=== PATIENT | female | born 1990 | race Caucasian/White ===

== ENCOUNTER 2024-02-14 11:13 | Outpatient (OUT) | payer BC, SELFPAY ==
[2024-02-14 11:54] LABS: Basophils Percent Auto 0.6 % (0.2-2.0); Eosinophils Absolute Auto 0.1 10^3/uL (0.0-0.7); Eosinophils Percent Auto 1.1 % (0.9-7.0); Hematocrit 43.7 % (36.0-48.0); Immature Granulocytes Abs Auto 0.01 10^3/uL (0.00-0.03); Immature Granulocytes Pct Auto 0.2 % (0.0-0.5); Lymphocytes Absolute Auto 1.8 10^3/uL (1.2-3.8); Mean Corpuscular Hemoglobin 26.4 pg (26.7-34.0); Mean Corpuscular Volume 82.3 fL (81.0-99.0); Mean Platelet Volume 11.6 fL (9.5-13.5); Monocytes Absolute Auto 0.6 10^3/uL (0.3-0.8); Monocytes Percent Auto 9.3 % (1.7-12.0); Neutrophils Absolute Auto 3.8 10^3/uL (1.4-6.5); Neutrophils Percent Auto 59.8 % (43.0-75.0); Platelet Count 259 10^3/uL (150-450); Red Blood Count 5.31 10^6/uL (4.20-5.40); Red Cell Distribution Width 15.6 % (11.0-15.0); White Blood Count 6.4 10^3/uL (4.0-11.0)
[2024-02-14 12:06] LABS: Estimated Average Glucose 103 mg/dL; Glycohemoglobin A1C 5.2 % (4.5-6.2)
[2024-02-14 12:37] LABS: Alanine Aminotransferase 27 U/L (14-59); Albumin Globulin Ratio 0.9; Albumin Level 3.4 g/dL (3.4-5.0); Alkaline Phosphatase 100 U/L (46-116); Anion Gap 14.3; Aspartate Amino Transferase 17 U/L (15-37); BUN Creatinine Ratio 9.2; Bilirubin Total 0.3 mg/dL (0.2-1.0); Calcium 8.8 mg/dL (8.5-10.1); Carbon Dioxide 24.7 mmol/L (21.0-32.0); Chloride 103 mmol/L (98-107); Cholesterol 234 mg/dL (<=200); Estimated GFR (African America >60 (>=60 mL/min/1.73m^2); Estimated GFR (Non-African Ame 53 (>=60 mL/min/1.73m^2); Globulin 3.9 g/dL; Glucose 84 mg/dL (74-106); HDL Cholesterol 39 mg/dL (40-60); Sodium 138 mmol/L (136-145); Thyroid Stimulating Hormone 1.725 uIU/mL (0.358-3.740); Total Protein 7.3 g/dL (6.4-8.2); Triglycerides 212 mg/dL (<=150); VLDL CHOLESTEROL 42.4 mg/dL
[2024-02-14 12:39] LABS: Free T3 2.86 pg/mL (2.18-3.98)
== END 2024-02-14 11:14 | disposition home or self-care (01) ==
PROVIDERS: PCP Family Medicine; Visit Provider Family Medicine
DX: Z00.00 Encounter for general adult medical examination without abnormal findings (principal)
CPT/HCPCS: 36415; 80053; 80061; 83036; 83540; 84436; 84443; 84481; 85025

== ENCOUNTER 2024-05-26 07:55 | Outpatient (OUT) | payer BC, SELFPAY ==
--- NOTE | 2024-05-26 | VEIN_ITS ---
The [address] [address] Patient Name: GEMA MONTILLA MRN: [id number] date: 1990 Sex: F Assigned Patient Location: Current Patient Location: Accession/Order Number: [id number] Exam Date: 05/26/2024 07:56 Report Date: 05/26/2024 10:10 At the request of: LYDIA ESTRELLA Procedure: VC SEGMENTAL PRESSURES EXAM: VC SEGMENTAL PRESSURES HISTORY: R09.89 Signs and symptoms involving circulatory system COMPARISON: None. TECHNIQUE: Resting ABIs and segmental pressures were obtained. FINDINGS: Right resting BRODY 1.14. Left resting BRODY 1.29. Waveforms are multiphasic. No pressure gradients were noted. VEIN/VC SEGMENTAL PRESSURES IMPRESSION: Normal resting ABIs. No pressure gradients. Electronically authenticated by: Kristen SAHU Date: 05/26/2024 10:10
--- OUTSIDE RECORDS SUMMARY | 2024-05-26 08:00 | XMS_ITS | CCD ---
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 Name Role Phone SAMEER, DR FREEMAN Admitting Unavailable HOY, DR FREEMAN Attending Unavailable HOY, DR FREEMAN Primary Care Unavailable HOY, DR FREEMAN Consulting Unavailable JABIER ALSTON Consulting Unavailable HOY, DR FREEMAN Admitting Unavailable HOY, DR FREEMAN Attending Unavailable HOY, DR FREEMAN Primary Care Unavailable HOY, DR FREEMAN Consulting Unavailable HOY, DR FREEMAN Admitting Unavailable HOY, DR FREEMAN Attending Unavailable HOY, DR FREEMAN Primary Care Unavailable HOY, DR FREEMAN Consulting Unavailable WEST, DR VINAY Wise Consulting Unavailable SAMEER, DR FREEMAN Primary Care Unavailable HAY, DR BIRD Admitting Unavailable HAY, DR BIRD Attending Unavailable ZIEBALEKSEY, DR PATTY Vu Consulting Unavailable HAY, DR BIRD Consulting Unavailable SAMEER, DR FREEMAN Primary Care Unavailable HAY, DR BIRD Admitting Unavailable HAY, DR BIRD Attending Unavailable HAY, DR BIRD Consulting Unavailable KIMVINAY Consulting Unavailable HOY, DR FREEMAN Admitting Unavailable HOY, DR FREEMAN Attending Unavailable ABELARDOY, DR FREEMAN Primary Care Unavailable HOPlacido, DR FREEMAN Consulting Unavailable ZIEBALEKSEY, DR PATTY Vu Consulting Unavailable Elin Bryan Unavailable MD Lydia San Primary Care Provider [phone] TETE Bryan Attending Provider [phone] Lydia San Primary Care Unavailable Elin Bryan Admitting Unavailable Elin Bryan Attending Unavailable Rob Coello Admitting Unavailab Rob Broderick Attending Unavailab le Lydia San Primary Care Unavailable Lydia San MD Primary Care Provider [phone] FER ROMAN Attending Unavailable ROMAN, PENOLA P Referring Unavailable FER ROMAN Referring Unavailable FER ROMAN Attending Unavailable FER ROMAN Attending Unavailable FER ROMAN Referring Unavailable SABRINA HEAD Attending Unavailable LYDIA SAN Referring Unavailable Sabrina Head NP Unavailable [phone] Allergies Allergy Classification Reported Allergen(s) Allergy Type Date of Onset Reaction(s) Facility (1 source) HYDROcodone Drug Allergy [facility] Repository (5 sources) buPROPion Drug Allergy 4 Other [facility] Healthcare (5 sources) Escitalopram Drug Allergy 4 Other [facility] (5 sources) Wound Dressing Adhesive Drug Intolerance 3 [facility] Medications Current Medications Medication Drug Class(es) Dates Sig (Normalized) Sig (Original) busPIRone hydrochloride 10 mg oral tablet (4 sources) Start: 03-01-2024 take 1 tablet by mouth in the morning busPIRone (Buspar) 10 MG tablet Take 10 mg by mouth in the morning and 10 mg before bedtime. 03/01/2024 Active DULoxetine 20 mg delayed release oral capsule (3 sources) Serotonin and Norepinephrine Reuptake Inhibitor Start: 05-04-2024 End: 06-03-2024 take 1 capsule by mouth once daily DULoxetine (Cymbalta) [address] capsule Indications: Mild episode of recurrent major depressive disorder (HCC) (CMS/HCC) , MYRANDA (generalized anxiety disorder) (CMS/HCC) Take 1 capsule (20 mg) by mouth Daily Do not crush or chew. 30 capsule 1 05/04/2024 05/10/2024 Discontinued (Side effects) 21 day ethinyl estradiol 0.381391 mg/hr / etonogestrel 0.005 mg/hr vaginal system (5 sources) Progestin, Estrogen Start: 12-17-2023 etonogestrel-ethin yl estradiol (Nuvaring) 0.12-0.015 MG/24HR vaginal ring Indications: Encounter for surveillance of transdermal patch hormonal contraceptive device Insert 1 Ring into the vagina every 28 (twenty-eight) days Insert vaginal ring for 3 weeks, then remove for 1 week. 1 each 12/17/2023 Active mirtazapine 7.5 mg oral tablet (2 sources) Start: 05-10-2024 End: 06-09-2024 take 1 tablet by mouth at bedtime mirtazapine (Remeron) 7.5 MG tablet Indications: Mild episode of recurrent major depressive disorder (HCC) (CMS/HCC) , MYRANDA (generalized anxiety disorder) (CMS/HCC) Take 1 tablet (7.5 mg) by mouth at bedtime 30 tablet 1 05/10/2024 05/18/2024 Discontinued (Side effects) [place] (No Known Home Meds) (1 source) Start: 07-20-2021 [place] (No Known Home Meds) Active July 20, 2021 12:00am predniSONE 10 mg oral tablet (5 sources) take 1 tablet by mouth every twenty-four hours as needed predniSONE (Deltasone) 10 MG tablet Take 10 mg by mouth Daily as needed (During flairs) Active triamcinolone acetonide 1 mg/ml topical cream (5 sources) Corticosteroid Start: 12-17-2023 triamcinolone (Kenalog) 0.1 % cream Indications: Rash Apply topically 2 (two) times a day 30 g 3 12/17/2023 Active Completed/Discontinued Medications Medication Drug Class(es) Dates Sig (Normalized) Sig (Original) [id number] 200 actuat albuterol 0.09 mg/actuat metered dose inhaler (1 source) beta2-Adrenergic Agonist Start: 06-19-2020 take 2 puff(s) by inhalation every four hours as needed Albuterol Sulfate HFA 108 (90 Base) MCG/ACT 2 puffs as needed Inhalation every 4 hrs for 30 days Jun, Not-Taking ferrous sulfate 325 mg oral tablet (1 source) Start: 07-11-2018 End: 07-20-2021 take 325 mg by mouth once daily Ferrous Sulfate Discontinued 325 MG PO Daily July 11, 2018 1:00am July 20, 2021 4:10pm ibuprofen 800 mg oral tablet (1 source) Nonsteroidal Anti-inflammatory Drug Start: 07-11-2018 End: 07-20-2021 take 800 mg by mouth every six hours Ibuprofen Discontinued 800 MG PO Q6H July 11, 2018 1:00am July 20, 2021 4:10pm Vit 17-Qtfn-Jotxx-Dha ( + Dha) 28 mg iron- 975 mcg-200 mg Combo Pack (1 source) Start: 06-18-2018 End: 07-20-2021 Vit 71-Tvfe-Bxabi-Dha ( + Dha) 28 mg iron- 975 mcg-200 mg Combo Pack Discontinued 1 PACKET PO Daily June 18, 2018 1:00am July 20, 2021 4:10pm Problems Active Problems Problem Classification Problem Date Documented Date Episodic/Chronic Abdominal pain (11 sources) Right lower quadrant pain; Translations: [Right upper quadrant pain] Onset: 07-20-2021 Episodic Anxiety disorders (7 sources) Generalized anxiety disorder; Translations: [Generalized anxiety disorder] Onset: 05-04-2024 05-04-2024 Chronic Cancer of kidney and renal pelvis (6 sources) Nephroblastoma of left kidney; Translations: [Malignant neoplasm of left kidney, except renal pelvis] Onset: 05-06-2024 05-06-2024 Chronic Deficiency and other anemia (1 source) Iron deficiency anemia; Translations: [Iron deficiency anemia, unspecified] Episodic Diabetes mellitus without complication (1 source) Hyperglycemia; Translations: [Hyperglycemia, unspecified] Episodic Diseases of mouth; excluding dental (1 source) Sore mouth; Translations: [Other lesions of oral mucosa] Episodic Disorders of lipid metabolism (1 source) Hyperlipidemia; Translations: [Hyperlipidemia, unspecified] Chronic Genitourinary symptoms and ill-defined conditions (5 sources) Hematuria, unspecified; Translations: [Blood in urine] Onset: 12-23-2020 Episodic Mood disorders (7 sources) Recurrent major depressive episodes, mild ; Translations: [Major depressive disorder, recurrent, mild] Onset: 05-04-2024 05-04-2024 Chronic Nausea and vomiting (1 source) Nausea; Translations: [NAUSEA] Onset: 10-31-2021 Episodic Noninfectious gastroenteritis (4 sources) Noninfective gastroenteritis and colitis, unspecified; Translations: [NONINFECTIVE GE AND COLITIS UNS] Onset: 12-08-2021 Episodic Other congenital anomalies (1 source) Congenital malformation syndromes involving limbs; Translations: [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] Chronic Other congenital anomalies (6 sources) Hemihypertrophy of muscle; 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] Onset: 05-06-2024 05-06-2024 Chronic Other connective tissue disease (4 sources) Behcet's syndrome; 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] Onset: 05-06-2024 5 Episodic Other diseases of kidney and ureters (1 source) Renal mass; Translations: [Other specified disorders of kidney and ureter] Chronic Other endocrine disorders (1 source) Hyperprolactinemia; Translations: [Hyperprolactinemia] Chronic Other eye disorders (1 source) Pain in eye; Translations: [Ocular pain, unspecified eye] Episodic Other female genital disorders (1 source) Noninflammatory disorder of the vagina; Translations: [Other specified noninflammatory disorders of vagina] Episodic Other female genital disorders (1 source) History of past delivery; Translations: [Status post vaginal delivery] 07-13-2018 Episodic Other hereditary and degenerative nervous system conditions (1 source) Blepharospasm; 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 Other injuries and conditions due to external causes (2 sources) Unspecified injury of left wrist, hand and finger(s), initial encounter Episodic Other non-traumatic joint disorders (1 source) Joint pain; Translations: [Pain in unspecified joint] Episodic Other nutritional; endocrine; and metabolic disorders (1 source) Body mass index 25-29 - overweight; Translations: [Body mass index (BMI) 29.0-29.9, adult] Episodic Other nutritional; endocrine; and metabolic disorders (6 sources) H/O: endocrine disorder; Translations: [Personal history of other endocrine, nutritional and metabolic disease] Onset: 05-06-2024 05-06-2024 Episodic Residual codes; unclassified (1 source) Gestation period, 39 weeks; Translations: [39 weeks gestation of ] 07-11-2018 Episodic Suicide and intentional self-inflicted injury (1 source) Suicidal thoughts; Translations: [Suicidal ideations] 07-20-2021 Episodic Unclassified (1 source) Unspecified injury of left wrist, hand and finger(s), initial encounter; Translations: [Unspecified injury of left wrist, hand and finger(s), initial encounter] Onset: 02-09-2023 Urinary tract infections (2 sources) Urinary tract infection, site not specified; Translations: [Leukocytes in urine] Onset: 10-31-2021 Episodic Viral infection (1 source) Herpes simplex; Translations: [Herpesviral infection, unspecified] Episodic Past or Other Problems Problem Classification Problem Date Documented Date Episodic/Chronic Biliary tract disease (1 source) Calculus of gallbladder without cholecystitis without obstruction; Translations: [CALCU GB W/O CHOLECYST W/O OBST] Onset: 07-16-2021 Episodic Cancer; other and unspecified primary (5 sources) H/O: malignant neoplasm; Translations: [Personal history of malignant neoplasm, unspecified] Onset: 04-26-2024 Resolved: 04-26-2024 04-26-2024 Episodic Deficiency and other anemia (5 sources) Anemia; Translations: [Anemia, unspecified] Onset: 12-13-2015 Resolved: 04-26-2024 04-26-2024 Episodic Residual codes; unclassified (1 source) Acquired absence of kidney; Translations: [ACQUIRED ABSENCE OF KIDNEY] Onset: 12-28-2020 Episodic Results Test Name Value Interpretation Reference Range Facility XR hand LT min 3V*on 023 XR hand LT min 3V* [facility] [place] [address] XRay Report Signed Patient: Lindsay Montilla MR#: [id number] 0 : 1990 Acct:[id number] Age/Sex: 32 / F ADM Date: 02/09/23 Loc: XDUC Room: Type: [facility] Attending Dr: Elin Bryan APRN Copies to: Elin Bryan APRN Ordering Provider: Elin Bryan APRN Date of Service: 02/09/23 XR/XR hand LT min 3V*: LEFT HAND INJURY LEFT HAND - 3 views CLINICAL DATA: Crush injury of the left fingers this morning. Pain and swelling at the third and fourth digits. COMPARISON: None AP, lateral and oblique views were obtained. There is no evidence of fracture or dislocation. There are no significant soft tissue abnormalities. XR/XR hand LT min 3V* IMPRESSION: NO ACUTE BONY INJURY. Impression dictated by: Kathleen Cheng M.D.02/09/2023 3:30 PM Dictation Location: [place] [address] Transcribed By: [facility] 02/09/23 1530 Dictated By: Kathleen Cheng MD 02/09/23 1529 Signed By: 02/09/23 153 Normal [facility] XR hand LT min 3V* [facility] [place] Other XR hand LT min 3V* [facility] Main [facility] [employer] Other XR hand LT min 3V* [address] [facility] [place] Other XR hand LT min 3V* JOSE Velazquez [address] [place] Other XR hand LT min 3V* XRay Report [facility] Other XR hand LT min 3V* Signed [employer] Other XR hand LT min 3V* Patient: Lindsay Montilla MR#: [id number] [place] Other XR hand LT min 3V* 0 [facility] Other XR hand LT min 3V* : 1990 Acct:[id number] [facility] Other XR hand LT min 3V* Age/Sex: 32 / F ADM Date: 02/09/23 [facility] Other XR hand LT min 3V* Loc: XDUCLY Room: Type: [facility] Other XR hand LT min 3V* Attending Dr: Elin Bryan RESEARCH PSYCHOLOGIST [employer] Other XR hand LT min 3V* Copies to: Elin Bryan RESEARCH PSYCHOLOGIST [facility] Other XR hand LT min 3V* Ordering Provider: Elin Bryan APRN [facility] Other XR hand LT min 3V* Date of Service: 02/09/23 [facility] Other XR hand LT min 3V* XR/XR hand LT min 3V*: LEFT HAND INJURY [facility] Other XR hand LT min 3V* LEFT HAND - 3 views [facility] Other XR hand LT min 3V* CLINICAL DATA: Crush injury of the left fingers this morning. Pain and swelling at the third and [facility] Other XR hand LT min 3V* fourth digits. No rt [place] Other XR hand LT min 3V* COMPARISON: None [facility] Other XR hand LT min 3V* AP, lateral and oblique views were obtained. There is no evidence of fracture or dislocation. [facility] Other XR hand LT min 3V* There are no significant soft tissue abnormalities. [facility] Other XR hand LT min 3V* XR/XR hand LT min 3V* [facility] Other XR hand LT min 3V* IMPRESSION: [facility] Other XR hand LT min 3V* NO ACUTE BONY INJURY. [facility] Other XR hand LT min 3V* Impression dictated by: Kathleen Cheng M.D.02/09/2023 3:30 PM [facility] Other XR hand LT min 3V* Dictation Location: [place] [address] [employer] Other XR hand LT min 3V* Transcribed By: MARLA 02/09/23 1530 [facility] Other XR hand LT min 3V* Dictated By: Kathleen Cheng MD 02/09/23 1529 [facility] Other XR hand LT min 3V* Signed By: [facility] Other XR hand LT min 3V* 02/09/23 1530 [place] Other GI PANEL (PCR)on 12-08-2021 Adenovirus F 40/41 Not detected Normal NOT DETECTED Th [facility] Comment on above: Performed By: #### G IPANEL #### [facility] [address] [place] [address] [address] Tomasa Ley Astrovirus Not detected Normal NOT DETECTED The [facility] Comment on above: Performed By: #### G IPANEL #### [facility] [address] [place] [address] Dr. Tomasa Ley C. Diff toxin A/B Not detected Normal NOT DETECTED [facility] Comment on above: Performed By: #### G IPANEL #### [facility] [address] [address] [address] Tomasa Ley Campylobacter Not detected Normal NOT DETECTED The [facility] Comment on above: Performed By: #### G IPANEL #### [facility] [address] [place] [address] Dr. Tomasa Ley Cryptosporidium Not detected Normal NOT DETECTED The [facility] Comment on above: Performed By: #### G IPANEL #### [facility] [address] [place] [address] Dr. Tomaas Ley Cyclos. Cayetanensis Not detected Normal NOT DETECTED [facility] Comment on above: Performed By: #### G IPANEL #### [facility] [address] [place] [address] Dr. Tomasa Ley E. Coli O157 Not Applicable Normal Not Applicable [facility] Comment on above: Performed By: #### G IPANEL #### [facility] [address] [place] [address] Dr. Tomasa Ley E. histolytica Not detected Normal NOT DETECTED The [facility] Comment on above: Performed By: #### G IPANEL #### [facility] [address] [place] [address] Dr. Tomasa Ley EAEC Not detected Normal NOT DETECTED The [facility] Comment on above: Performed By: #### G IPANEL #### [facility] [address] [place] [address] Dr. Tomasa Ley EIEC Not detected Normal NOT DETECTED The [facility] Comment on above: Performed By: #### G IPANEL #### [facility] [address] [address] [address] Tomasa Ley EPEC Not detected Normal NOT DETECTED The [facility] Comment on above: Performed By: #### G IPANEL #### [facility] [address] [address] [address] Tomasa Ley ETEC Not detected Normal NOT DETECTED The [facility] Comment on above: Performed By: #### G IPANEL #### [facility] [address] [address] [address] Tomasa Zuñiga Lamblia Not detected Normal NOT DETECTED The [facility] Comment on above: Performed By: #### G IPANEL #### [facility] [address] [address] [address] Tomasa LOO CONTROLS PASSED Normal [facility] Comment on above: Performed By: #### G IPANEL #### [facility] [address] [place] [address] Dr. Tomasa SNYDER HEADER GI PANEL BACTERIA Normal T [facility] Comment on above: Performed By: #### G IPANEL #### [facility] [address] [address] [address] Tomasa RUCKER ECOLI GI PANEL DIARRHEAGENIC E.COLI / SHIGELLA Normal [facility] Comment on above: Performed By: #### G IPANEL #### [facility] [address] [place] [address] Dr. Tomasa RUCKER INFO SEE BELOW Normal [facility] Comment on above: Result Comment: EAEC - Enteroaggregative E. Coli EPEC- Enteropathogenic E. Coli ETEC- Enterotoxigenic E. Coli lt/st STEC- Shigella-like toxin-producing E. Coli stx1/stx2 EIEC- Shigella/Enteroinvasive E. Coli Performed By: #### G IPANEL #### [facility] [address] [place] [address] Dr. Tomasa RUCKER PARASITES GI PANEL PARASITES Normal [facility] Comment on above: Performed By: #### G IPANEL #### [facility] [address] [address] [address] [facility] VIRUSES Normal The [facility] Comment on above: Performed By: #### G IPANEL #### [facility] [address] [place] [address] Dr. Tomasa Ley Norovirus GI/GII Not detected Normal NOT DETECTED [facility] Comment on above: Performed By: #### G IPANEL #### [facility] [address] [place] [address] Dr. Tomasa Ley P. Shigelloides Not detected Normal NOT DETECTED The [facility] Comment on above: Performed By: #### G IPANEL #### [facility] [address] [place] [address] Dr. Tomasa Ley Rotavirus A Not detected Normal NOT DETECTED The [facility] Comment on above: Performed By: #### G IPANEL #### [facility] [address] [place] [address] Dr. Tomasa Ley Salmonella Not detected Normal NOT DETECTED The [facility] Comment on above: Performed By: #### G IPANEL #### [facility] [address] [place] [address] Dr. Tomasa Ley Sapovirus Not detected Normal NOT DETECTED The [facility] Comment on above: Performed By: #### G IPANEL #### [facility] [address] [place] [address] Dr. Tomasa Ley STEC Not detected Normal NOT DETECTED The [facility] Comment on above: Performed By: #### G IPANEL #### [facility] [address] [place] [address] Dr. Tomasa Ley Vibrio Not detected Normal NOT DETECTED The [facility] Comment on above: Performed By: #### G IPANEL #### [facility] [address] [place] [address] Dr. Tomasa Ley Vibrio Cholera Not detected Normal NOT DETECTED The [facility] Comment on above: Performed By: #### G IPANEL #### [facility] [address] [place] [address] Dr. Tomasa Ley Y. Enterocolitica Not detected Normal NOT DETECTED [facility] Comment on above: Performed By: #### G IPANEL #### [facility] [address] [place] [address] Dr. Tomasa Ley US PELVIS AND TRANSVAGon US PELVIS AND TRANSVAG EXAMINATION: US PELVIS AND TRANSVAG HISTORY: Right lower quadrant pain COMPARISON: 10/28/2021 FINDINGS: The uterus is normal in size, contour and echotexture measuring 8.2 x 4.5 x 5.3 cm. The uterus is anteverted. Endometrium measures 1.7 cm, normal The right ovary measures 2.3 x 2.3 x 2.5 cm. Normal subcentimeter follicles. Normal color and Doppler flow. Normal resistive 0.46 Left ovary is not visualized No free fluid IMPRESSION: Normal uterus and right ovary Nonvisualization of the left ovary Electronically authenticated by: VINAY BURROUGHS Date: 2021-11-12 19:43 Normal [facility] AMYLASEon 10-28-2021 Amylase [Catalytic activity/Vol] 36 U/L Normal 25-115 [facility] Comment on above: Performed By: #### C BC #### [facility] [address] [place] [address] Dr. Tomasa Ley CBC AUTO DIFFon 10-28-2021 BASO # 0.0 103/ul Normal 0.0-0.1 [facility] Comment on above: Performed By: #### C BC #### [facility] [address] [place] [address] Dr. Tomasa Ley Basophils/100 WBC (Bld) 0.4 % Normal 0.2-2.0 [facility] Comment on above: Performed By: #### C BC #### [facility] [address] [place] [address] Dr. Tomasa Ley EO # 0.1 103/ul Normal 0.0-0.7 [facility] Comment on above: Performed By: #### C BC #### [facility] [address] [place] [address] Dr. Tomasa Ley Eosinophils/100 WBC (Bld) 0.6 % Critically low 0.9-7.0 [facility] Comment on above: Performed By: #### C BC #### [facility] [address] [place] [address] Dr. Tomasa Ley Erythrocyte distribution width (RBC) [Ratio] 15.2 % Critically high 11.0-15.0 [facility] Comment on above: Performed By: #### C BC #### [facility] [address] [place] [address] Dr. Tomasa Ley Hematocrit (Bld) [Volume fraction] 45.1 % Normal 36.0-48.0 [facility] Comment on above: Performed By: #### C BC #### [facility] [address] [place] [address] Dr. Tomasa Ley Hemoglobin (Bld) [Mass/Vol] 14.2 g/dL Normal 12.0-16.0 [facility] Comment on above: Performed By: #### C BC #### [facility] [address] [place] [address] Dr. Tomasa Ley IG # 0.02 10e3/ul Normal 0.00-0.03 [facility] Comment on above: Performed By: #### C BC #### [facility] [address] [place] [address] Dr. Tomasa Ley IG % 0.3 % Normal 0.0-0.5 [facility] Comment on above: Performed By: #### C BC #### [facility] [address] [place] [address] Dr. Tomasa Ley LYMPH # 1.6 103/ul Normal 1.2-3.8 [facility] Comment on above: Performed By: #### C BC #### [facility] [address] [place] [address] Dr. Tomasa Ley Lymphocytes/100 WBC (Bld) 19.6 % Critically low 20.5-60.0 [facility] Comment on above: Performed By: #### C BC #### [facility] [address] [place] [address] Dr. Tomasa Ley MANUAL DIFF REQ NO Normal [facility] Comment on above: Performed By: #### C BC #### [facility] [address] [address] [address] Tomasa Ley MCH (RBC) [Entitic mass] 25.9 pg Critically low 26.7-34.0 [facility] Comment on above: Performed By: #### C BC #### [facility] [address] [place] [address] Dr. oTmasa Ley MCHC (RBC) [Mass/Vol] 31.5 g/dL Normal 29.9-35.2 [facility] Comment on above: Performed By: #### C BC #### [facility] [address] [place] [address] Dr. Tomasa Ley MCV (RBC) [Entitic vol] 82.1 fL Normal 81.0-99.0 [facility] Comment on above: Performed By: #### C BC #### [facility] [address] [place] [address] Dr. Tomasa Ley MONO # 0.6 103/ul Normal 0.3-0.8 [facility] Comment on above: Performed By: #### C BC #### [facility] [address] [place] [address] Dr. Tomasa Ley Monocytes/100 WBC (Bld) 7.5 % Normal 1.7-12.0 [facility] Comment on above: Performed By: #### C BC #### [facility] [address] [place] [address] Dr. Tomasa Ley NEUT # 5.7 103/ul Normal 1.4-6.5 [facility] Comment on above: Performed By: #### C BC #### [facility] [address] [place] [address] Dr. Tomasa Ley Neutrophils/100 WBC (Bld) 71.6 % Normal 43.0-75.0 [facility] Comment on above: Performed By: #### C BC #### [facility] [address] [place] [address] Dr. Tomasa Ley Platelet mean volume (Bld) [Entitic vol] 11.3 fL Normal 9.5-13.5 [facility] Comment on above: Performed By: #### C BC #### [facility] [address], [place] [address] Dr. Tomasa Ley PLT 246 103/ul Normal 150-450 [facility] Comment on above: Performed By: #### C BC #### [facility] [address], [place] [address] Dr. Tomasa Ley RBC 5.49 106/ul Critically high 4.20-5.40 [facility] Comment on above: Performed By: #### C BC #### [facility] [address], [place] [address] Dr. Tomasa Ley WBC 8.0 103/ul Normal 4.0-11.0 [facility] Comment on above: Performed By: #### C BC #### [facility] [address], [place] [address] ABD/PELVIS WO CONon 10-28 CT ABD/PELVIS WO CON CT ABD/PELVIS WO CON CLINICAL: Right flank pain COMPARISON: NM hepatobiliary scan 07/20/2021, ultrasound 07/12/2021. CT 10/15/2016. TECHNIQUE: High-resolution axial images were obtained from diaphragms to pubic symphysis. Dose reduction: mA and/or kV are were adjusted by automated exposure control software based upon patients height and weight. FINDINGS: Lung bases are unremarkable. The liver shows no space-occupying lesion. Gallbladder shows calcified gallstones at the level of the fundus without CT evidence of acute biliary obstruction. These appear somewhat nondependent at the base of the fundus and may be in part associated with biliary sludge or adherent to the gallbladder wall. The spleen, pancreas and right adrenal are unremarkable. The left kidney is absent, as on prior CT 10/15/2016 consistent with prior left nephrectomy. The left adrenal gland is not definitely visualized and may have been resected as well. Appearance is stable. The right kidney shows no evidence of calculus or obstructive uropathy. Right ureter is normal in diameter and shows no evidence of calculus. Bladder is incompletely distended without evidence of calculus. Uterus and adnexal regions appear grossly age-appropriate, within limits of noncontrast CT. There is a small fluid density structure of 12 mm in the right pelvis along the margin of the lower uterine segment and posterior to the right adnexal region, nonspecific but is suspected to represent a small amount of free fluid related to menstrual phase. No ascites, large pelvic fluid collection or abdominal adenopathy is seen. The appendix is visualized and is unremarkable. No bowel obstruction or free intraperitoneal air. There is mild mucosal prominence of the hepatic flexure and transverse colon without surrounding mesenteric inflammatory change. Osseous structures show no acute traumatic or destructive lesion. IMPRESSION: 1. No acute intra-abdominal findings. 2. No evidence of right-sided urinary calculus or obstruction. Status post left nephrectomy. Normal appendix. 3. Mild mucosal prominence of the hepatic flexure and transverse colon. This may be due in part to nondistention, correlate clinically for mild inflammatory or infectious colitis. 4. Cholelithiasis without acute biliary obstruction. Gallstones appear partially nondependent at the base of the fundus and may be associated with biliary sludge or adherent to the gallbladder wall. 5. 12 mm round simple fluid density collection in the right pelvis posterior to the right adnexa, of uncertain significance but in light of patient's age suspected to represent physiologic fluid related to menstrual phase, less likely small paraovarian cyst. No surrounding induration to indicate associated inflammatory process. Electronically authenticated by: VINAY ALVAREZ Date: 2021-10-28 10:13 Normal [facility] CULTURE URINEon 10-28-2021 CULTURE URINE Culture Observations : NO GROWTH. Normal [facility] Comment on above: Performed By: #### P RINKU CHERRY, ERUR #### [facility] [address] [place] [address] [address] Tomasa Ley ER URINE PROFILEon 2 Bilirubin Ql (U) Negative Normal NEGATIVE [facility] Comment on above: Performed By: #### U MICRO, ERUR #### [facility] [address] [address] [address] Tomasa Ley Clarity (U) CLEAR Normal CLEAR [facility] Comment on above: Performed By: #### U MICRO, ERUR #### [facility] [address] [address] [address] Tomasa Ley Color (U) LT. YELLOW Normal YELLOW [facility] Comment on above: Performed By: #### U MICRO, ERUR #### [facility] [address] [address] [address] Tomasa ESTEBAN A micrscopic examination will be performed if indicated. Normal [facility] Comment on above: Performed By: #### U MICRO, ERUR #### [facility] [address] [address] [address] Tomasa Ley Glucose Ql (U) Negative Normal NEGATIVE The [facility] Comment on above: Performed By: #### U MICRO, ERUR #### [facility] [address] [address] [address] Tomasa Ley Hemoglobin Ql (U) Negative Normal NEGATIVE [facility] Comment on above: Performed By: #### U MICRO, ERUR #### [facility] [address] [address] [address] Tomasa Ley Ketones Ql (U) Negative Normal NEGATIVE The [facility] Comment on above: Performed By: #### U MICRO, ERUR #### [facility] [address] [place] [address] Dr. Tomasa Ley LEUKOCYTES SMALL Abnormal NEGATIVE [facility] Comment on above: Performed By: #### U MICRO, ERUR #### [facility] [address] [address] [address] Tomasa Ley Nitrite Ql (U) Negative Normal NEGATIVE [facility] Comment on above: Performed By: #### U MICRO, ERUR #### [facility] [address] [address] [address] Tomasa Ley pH (U) 5.5 [pH] Normal 5-9 [facility] Comment on above: Performed By: #### U MICRO, ERUR #### [facility] [address] [address] [address] Tomasa Ley SPEC GRAVITY 1.020 Normal 1.005-<=1.025 The [facility] Comment on above: Performed By: #### U MICRO, ERUR #### [facility] [address] [address] [address] Tomasa Ley UA PROTEIN Negative Normal NEGATIVE/ TRACE [facility] Comment on above: Performed By: #### U MICRO, ERUR #### [facility] [address] [place] [address] Dr. Tomasa Ley UR MICRO IND INDICATED Normal [facility] Comment on above: Performed By: #### U MICRO, ERUR #### [facility] [address] [place] [address] Dr. Tomasa Ley Urobilinogen Qn (U) 0.2 {Sly'U}/dL Normal 0.2 - 1. 0 [facility] Comment on above: Performed By: #### U MICRO, ERUR #### [facility] [address] [place] [address] Dr. Tomasa Ley LIPASEon 10-28-2021 Lipase [Catalytic activity/Vol] 142.0 U/L Normal 73.0-393.0 [facility] Comment on above: Performed By: #### C BC #### [facility] [address] [place] [address] Dr. Tomasa Ley PROF 14(COMP METB)on 022 Albumin [Mass/Vol] 3.9 g/dL Normal 3.4-5.0 [facility] Comment on above: Performed By: #### C BC #### [facility] [address] [place] [address] Dr. Tomasa Ley Albumin/Globulin [Mass ratio] 1.0 {ratio} Normal [facility] Comment on above: Performed By: #### C BC #### [facility] [address] [place] [address] Dr. Tomasa Ley ALP [Catalytic activity/Vol] 107 U/L Normal 46-116 [facility] Comment on above: Performed By: #### C BC #### [facility] [address] [place] [address] Dr. Tomasa Ley ALT [Catalytic activity/Vol] 24 U/L Normal 14-59 [facility] Comment on above: Performed By: #### C BC #### [facility] [address] [place] [address] Dr. Tomasa Ley Anion gap [Moles/Vol] 13.4 mmol/L Normal [facility] Comment on above: Performed By: #### C BC #### [facility] [address] [place] [address] Dr. Tomasa Ley AST [Catalytic activity/Vol] 18 U/L Normal 15-37 [facility] Comment on above: Performed By: #### C BC #### [facility] [address] [place] [address] Dr. Tomasa Ley Bilirubin [Mass/Vol] 0.2 mg/dL Normal 0.2-1.0 [facility] Comment on above: Performed By: #### C BC #### [facility] [address] [place] [address] Dr. Tomasa Ley Calcium [Mass/Vol] 8.8 mg/dL Normal 8.5-10.1 [facility] Comment on above: Performed By: #### C BC #### [facility] [address] [place] [address] Dr. Tomasa Ley Chloride [Moles/Vol] 103 mmol/L Normal 98-107 [facility] Comment on above: Performed By: #### C BC #### [facility] [address] [place] [address] Dr. Tomasa Ley CO2 [Moles/Vol] 27.6 mmol/L Normal 21.0-32.0 [facility] Comment on above: Performed By: #### C BC #### [facility] [address] [place] [address] Dr. Tomasa Ley Creatinine [Mass/Vol] 1.07 mg/dL Critically high 0.55-1.02 [facility] Comment on above: Performed By: #### C BC #### [facility] [address] [place] [address] Dr. Tomasa Ley EGFR-AF COLOMBIAN >60 Normal >=60 [facility] Comment on above: Performed By: #### C BC #### [facility] [address] [place] [address] Dr. Tomasa Ley EGFR-NON AF COLOMBIAN >60 Normal >=60 [facility] Comment on above: Performed By: #### C BC #### [facility] [address] [place] [address] Dr. Tomasa Ley Globulin (S) [Mass/Vol] 3.8 g/dL Normal [facility] Comment on above: Performed By: #### C BC #### [facility] [address] [place] [address] Dr. Tomasa Ley Glucose [Mass/Vol] 90 mg/dL Normal 74-106 [facility] Comment on above: Performed By: #### C BC #### [facility] [address] [place] [address] Dr. Tomasa Ley Potassium [Moles/Vol] 4.0 mmol/L Normal 3.5-5.1 [facility] Comment on above: Performed By: #### C BC #### [facility] [address] [place] [address] Dr. Tomasa Ley Protein [Mass/Vol] 7.7 g/dL Normal 6.4-8.2 [facility] Comment on above: Performed By: #### C BC #### [facility] [address] [place] [address] Dr. Tomasa Ley Sodium [Moles/Vol] 140 mmol/L Normal 136-145 [facility] Comment on above: Performed By: #### C BC #### [facility] [address] [place] [address] Dr. Tomasa Ley Urea nitrogen [Mass/Vol] 9.0 mg/dL Normal 7.0-18.0 [facility] Comment on above: Performed By: #### C BC #### [facility] [address] [place] [address] Dr. Tomasa Ley Urea nitrogen/Creatinine [Mass ratio] 8.4 mg/mg Normal [facility] Comment on above: Performed By: #### C BC #### [facility] [address] [place] [address] Dr. Tomasa Ley URINE MICROSCOPIC ONLYon BACTERIA SMALL Abnormal NONE SEEN [facility] Comment on above: Performed By: #### U MICRO, ERUR #### [facility] [address] [place] [address] Dr. Tomasa Ley Bacteria identified Cx Nom (U) INDICATED Normal [facility] Comment on above: Performed By: #### U MICRO, ERUR #### [facility] [address] [place] [address] [address] Tomasa Ley CAST NONE SEEN Normal NONE SEEN [facility] Comment on above: Performed By: #### U MICRO, ERUR #### [facility] [address] [address] [address] Tomasa Ley Crystals LM Nom (Urine sed) NONE SEEN Normal NONE SEEN [facility] Comment on above: Performed By: #### U MICRO, ERUR #### [facility] [address] [address] [address] Tomasa Ley Epithelial cells LM Ql (Urine sed) MODERATE Abnormal NONE SEEN /RARE [facility] Comment on above: Performed By: #### U MICRO, ERUR #### [facility] [address] [place] [address] Dr. Tomasa Ley MUCOUS NONE SEEN Normal NONE SEEN [facility] Comment on above: Performed By: #### U MICRO, ERUR #### [facility] [address] [place] [address] Dr. Tomasa Ley RBC 2-5 Abnormal 0-2 [facility] Comment on above: Performed By: #### U MICRO, ERUR #### [facility] [address] [place] [address] Dr. Tomasa Ley WBC 5-10 Abnormal NONE SEEN [facility] Comment on above: Performed By: #### U MICRO, ERUR #### [facility] [address] [place] [address] Dr. Tomasa Ley NM HEPATOBILIARY SCAN W EFon 07-20-2021 NM HEPATOBILIARY SCAN W EF EXAMINATION: NM HEPATOBILIARY SCAN W EF HISTORY: Right upper quadrant pain COMPARISON: Ultrasound right upper quadrant 07/12/2021 TECHNIQUE: Radionuclide hepatobiliary imaging was performed after intravenous injection of 5.1 mCi Tc-99m UMESH derivative with sequential acquisitions every 1 minute for one hour. Hepatobiliary imaging with gallbladder ejection fraction analysis was then performed with sequential imaging every 1 minute for 60 minutes following ingestion of 8 ounces of Ensure Plus. FINDINGS: LIVER: Normal, prompt and uniform radiotracer uptake and clearing. BILIARY DUCTS: Normal radioisotopic biliary excretion. GALLBLADDER: Normal with no evidence of cystic duct obstruction. INTESTINE: Normal with no evidence of common biliary ductal obstruction. EJECTION FRACTION: 71 % within 60 minutes. (Normal EF > 38%). OTHER: Negative. IMPRESSION: 1. Normal nuclear medicine HIDA scan. Electronically authenticated by: PATTY MATHEW Date: 2021-07-20 11:49 Normal [facility] Physician Referralon 022 Physician Referral [id number] [facility] AMYLASEon 07-12-2021 Amylase [Catalytic activity/Vol] 35 U/L Normal 31-110 [facility] Comment on above: Performed By: #### C BC #### [facility] [address] [place] [address] Dr. Tomasa Ley CBC AUTO DIFFon 07-12-2021 BASO # 0.0 103/ul Normal 0.0-0.1 [facility] Comment on above: Performed By: #### C BC #### [facility] [address] [place] [address] Dr. Tomasa Ley Basophils/100 WBC (Bld) 0.5 % Normal 0.2-2.0 [facility] Comment on above: Performed By: #### C BC #### [facility] [address] [place] [address] Dr. Tomasa Ley EO # 0.1 103/ul Normal 0.0-0.7 [facility] Comment on above: Performed By: #### C BC #### [facility] [address] [place] [address] Dr. Tomasa Ley Eosinophils/100 WBC (Bld) 1.1 % Normal 0.9-7.0 [facility] Comment on above: Performed By: #### C BC #### [facility] [address] [place] [address] Dr. Tomasa Ley Erythrocyte distribution width (RBC) [Ratio] 16.2 % Critically high 11.0-15.0 [facility] Comment on above: Performed By: #### C BC #### [facility] [address] [place] [address] Dr. Tomasa Ley Hematocrit (Bld) [Volume fraction] 43.6 % Normal 36.0-48.0 [facility] Comment on above: Performed By: #### C BC #### [facility] [address] [place] [address] Dr. Tomasa Ley Hemoglobin (Bld) [Mass/Vol] 14.2 g/dL Normal 12.0-16.0 [facility] Comment on above: Performed By: #### C BC #### [facility] [address] [place] [address] Dr. Tomasa Ley IG # 0.02 10e3/ul Normal 0.00-0.03 [facility] Comment on above: Performed By: #### C BC #### [facility] [address] [place] [address] Dr. Tomasa Ley IG % 0.3 % Normal 0.0-0.5 [facility] Comment on above: Performed By: #### C BC #### [facility] [address] [place] [address] Dr. Tomasa Ley LYMPH # 2.0 103/ul Normal 1.2-3.8 [facility] Comment on above: Performed By: #### C BC #### [facility] [address] [place] [address] Dr. Tomasa Ley Lymphocytes/100 WBC (Bld) 25.8 % Normal 20.5-60.0 [facility] Comment on above: Performed By: #### C BC #### [facility] [address] [place] [address] Dr. Tomasa Ley MANUAL DIFF REQ NO Normal The [facility] Comment on above: Performed By: #### C BC #### [facility] [address] [place] [address] Dr. Tomasa Ley MCH (RBC) [Entitic mass] 26.6 pg Critically low 26.7-34.0 [facility] Comment on above: Performed By: #### C BC #### [facility] [address] [place] [address] Dr. Tomasa Ley MCHC (RBC) [Mass/Vol] 32.6 g/dL Normal 29.9-35.2 [facility] Comment on above: Performed By: #### C BC #### [facility] [address] [place] [address] Dr. Tomasa Ley MCV (RBC) [Entitic vol] 81.6 fL Normal 81.0-99.0 [facility] Comment on above: Performed By: #### C BC #### [facility] [address] [place] [address] Dr. Tomasa Ley MONO # 0.7 103/ul Normal 0.3-0.8 [facility] Comment on above: Performed By: #### C BC #### [facility] [address] [place] [address] Dr. Tomasa Ley Monocytes/100 WBC (Bld) 9.1 % Normal 1.7-12.0 [facility] Comment on above: Performed By: #### C BC #### [facility] [address] [place] [address] Dr. Tomasa Ley NEUT # 5.0 103/ul Normal 1.4-6.5 [facility] Comment on above: Performed By: #### C BC #### [facility] [address] [place] [address] Dr. Tomasa Ley Neutrophils/100 WBC (Bld) 63.2 % Normal 43.0-75.0 [facility] Comment on above: Performed By: #### C BC #### [facility] [address] [place] [address] Dr. Tomasa Ley Platelet mean volume (Bld) [Entitic vol] 11.0 fL Normal 9.5-13.5 [facility] Comment on above: Performed By: #### C BC #### [facility] [address] [place] [address] Dr. Tomasa Ley PLT 236 103/ul Normal 150-450 [facility] Comment on above: Performed By: #### C BC #### [facility] [address] [place] [address] Dr. Tomasa Ley RBC 5.34 106/ul Normal 4.20-5.40 [facility] Comment on above: Performed By: #### C BC #### [facility] [address] [place] [address] Dr. Tomasa Ley WBC 7.9 103/ul Normal 4.0-11.0 [facility] Comment on above: Performed By: #### C BC #### [facility] [address] [address] [address] Tomasa Ley ER URINE PROFILEon 2 Bilirubin Ql (U) Negative Normal NEGATIVE [facility] Comment on above: Performed By: #### P REGU, UMICRO, ERUR #### [facility] [address] [place] [address] Dr. Tomasa Ley Clarity (U) CLEAR Normal CLEAR [facility] Comment on above: Performed By: #### P REGU, UMICRO, ERUR #### [facility] [address] [place] [address] Dr. Tomasa Ley Color (U) LT. YELLOW Normal YELLOW [facility] Comment on above: Performed By: #### P REGU, UMICRO, ERUR #### [facility] [address] [place] [address] Dr. Tomasa ESTEBAN A micrscopic examination will be performed if indicated. Normal [facility] Comment on above: Performed By: #### P REGU, UMICRO, ERUR #### [facility] [address] [place] [address] Dr. Tomasa Ley Glucose Ql (U) Negative Normal NEGATIVE [facility] Comment on above: Performed By: #### P REGU, UMICRO, ERUR #### [facility] [address] [address] [address] Tomasa Ley Hemoglobin Ql (U) TRACE-INTACT Abnormal NEGATIVE [facility] Comment on above: Performed By: #### P REGU, UMICRO, ERUR #### [facility] [address] [place] [address] Dr. Tomasa Ley Ketones Ql (U) Negative Normal NEGATIVE [facility] Comment on above: Performed By: #### P REGU, UMICRO, ERUR #### [facility] [address] [address] [address] Tomasa Ley LEUKOCYTES Negative Normal NEGATIVE [facility] Comment on above: Performed By: #### P REGU, UMICRO, ERUR #### [facility] [address] [address] [address] Tomasa Ley Nitrite Ql (U) Negative Normal NEGATIVE [facility] Comment on above: Performed By: #### P REGU, UMICRO, ERUR #### [facility] [address] [address] [address] Tomasa Ley pH (U) 5.5 [pH] Normal 5-9 [facility] Comment on above: Performed By: #### P REGU, UMICRO, ERUR #### [facility] [address] [place] [address] Dr. Tomasa Ley SPEC GRAVITY >=1.030 Abnormal 1.005-<=1.025 [facility] Comment on above: Performed By: #### P REGU, UMICRO, ERUR #### [facility] [address] [address] [address] Tomasa Ley UA PROTEIN Negative Normal NEGATIVE/ TRACE [facility] Comment on above: Performed By: #### P REGU, UMICRO, ERUR #### [facility] [address] [address] [address] Tomasa Ley UR MICRO IND INDICATED Normal [facility] Comment on above: Performed By: #### P REGU, UMICRO, ERUR #### [facility] [address] [address] [address] Tomasa Ley Urobilinogen Qn (U) 0.2 {Sly'U}/dL Normal 0.2 - 1. 0 [facility] Comment on above: Performed By: #### P REGU, UMICRO, ERUR #### [facility] [address] [address] [address] Tomasa Ley LIPASEon 07-12-2021 Lipase [Catalytic activity/Vol] 140.0 U/L Normal 23.0-300.0 [facility] Comment on above: Performed By: #### C BC #### [facility] [address] [place] [address] Dr. Tomasa Ley URon 07-12-2021 , QUAL Negative Normal NEGATIVE [facility] Comment on above: Performed By: #### P REGU, UMICRO, ERUR #### [facility] [address] [place] [address] Dr. Tomasa Ley PROF 14(COMP METB)on 022 Albumin [Mass/Vol] 3.9 g/dL Normal 3.5-5.0 [facility] Comment on above: Performed By: #### C BC #### [facility] [address] [place] [address] Dr. Tomasa Ley Albumin/Globulin [Mass ratio] 1.0 {ratio} Normal [facility] Comment on above: Performed By: #### C BC #### [facility] [address] [place] [address] Dr. Tomasa Ley ALP [Catalytic activity/Vol] 102 U/L Normal 38-126 [facility] Comment on above: Performed By: #### C BC #### [facility] [address] [place] [address] Dr. Tomasa Ley ALT [Catalytic activity/Vol] 15 U/L Normal 9-52 [facility] Comment on above: Performed By: #### C BC #### [facility] [address] [place] [address] Dr. Tomasa Ley Anion gap [Moles/Vol] 12.3 mmol/L Normal [facility] Comment on above: Performed By: #### C BC #### [facility] [address] [place] [address] Dr. Tomasa Ley AST [Catalytic activity/Vol] 14 U/L Normal 14-36 [facility] Comment on above: Performed By: #### C BC #### [facility] [address] [place] [address] Dr. Tomasa Ley Bilirubin [Mass/Vol] 0.3 mg/dL Normal 0.2-1.3 [facility] Comment on above: Performed By: #### C BC #### [facility] [address] [place] [address] Dr. Tomasa Ley Calcium [Mass/Vol] 8.8 mg/dL Normal 8.4-10.2 [facility] Comment on above: Performed By: #### C BC #### [facility] [address] [address] [address] Tomasa Ley Chloride [Moles/Vol] 103 mmol/L Normal 98-107 [facility] Comment on above: Performed By: #### C BC #### [facility] [address] [place] [address] Dr. Tomasa Ley CO2 [Moles/Vol] 25.5 mmol/L Normal 22.0-30.0 [facility] Comment on above: Performed By: #### C BC #### [facility] [address] [place] [address] Dr. Tomasa Ley Creatinine [Mass/Vol] 1.01 mg/dL Normal 0.52-1.04 [facility] Comment on above: Performed By: #### C BC #### [facility] [address] [place] [address] Dr. Tomasa Ley EGFR-AF COLOMBIAN 60 mL/min/1.73m2 Normal >=60 [facility] Comment on above: Performed By: #### C BC #### [facility] [address] [place] [address] Dr. Tomasa Ley EGFR-NON AF COLOMBIAN 60 mL/min/1.73m2 Normal >=60 [facility] Comment on above: Performed By: #### C BC #### [facility] [address] [place] [address] Dr. Tomasa Ley Globulin (S) [Mass/Vol] 3.8 g/dL Normal [facility] Comment on above: Performed By: #### C BC #### [facility] [address] [address] [address] Tomasa Ley Glucose [Mass/Vol] 95 mg/dL Normal 74-106 [facility] Comment on above: Performed By: #### C BC #### [facility] [address] [address] [address] Tomasa Ley Potassium [Moles/Vol] 3.8 mmol/L Normal 3.4-5.0 [facility] Comment on above: Performed By: #### C BC #### [facility] [address] [address] [address] Tomasa Ley Protein [Mass/Vol] 7.7 g/dL Normal 6.1-8.2 [facility] Comment on above: Performed By: #### C BC #### [facility] [address] [address] [address] Tomasa Ley Sodium [Moles/Vol] 137 mmol/L Normal 137-145 [facility] Comment on above: Performed By: #### C BC #### [facility] [address] [place] [address] Dr. Tomasa Ley Urea nitrogen [Mass/Vol] 16.0 mg/dL Normal 7.0-17.0 [facility] Comment on above: Performed By: #### C BC #### [facility] [address] [place] [address] Dr. Tomasa Ley Urea nitrogen/Creatinine [Mass ratio] 15.8 mg/mg Normal [facility] Comment on above: Performed By: #### C BC #### [facility] [address] [address] [address] Tomasa Ley URINE MICROSCOPIC ONLYon BACTERIA NONE SEEN Normal NONE SEEN [facility] Comment on above: Performed By: #### P RINKU CHERRY ERUR #### [facility] [address] [address] [address] Tomasa Ley Bacteria identified Cx Nom (U) NOT INDICATED Normal [facility] Comment on above: Performed By: #### P RINKU CHERRY, ERUR #### [facility] [address] [address] [address] Tomasa Ley CAST NONE SEEN Normal NONE SEEN [facility] Comment on above: Performed By: #### P REGU, UMICRO, ERUR #### [facility] [address] [address] [address] Tomasa Ley Crystals LM Nom (Urine sed) NONE SEEN Normal NONE SEEN [facility] Comment on above: Performed By: #### P REGU, UMICRO, ERUR #### [facility] [address] [address] [address] Tomasa Ley Epithelial cells LM Ql (Urine sed) MODERATE Abnormal NONE SEEN /RARE [facility] Comment on above: Performed By: #### P REGU, UMICRO, ERUR #### [facility] [address] [address] [address] Tomasa Ley MUCOUS SMALL Abnormal NONE SEEN [facility] Comment on above: Performed By: #### P REGU, UMICRO, ERUR #### [facility] [address] [address] [address] Tomasa Ley RBC 5-10 Abnormal 0-2 [facility] Comment on above: Performed By: #### P REGU, UMICRO, ERUR #### [facility] [address] [address] [address] Tomasa Ley WBC NONE SEEN Normal NONE SEEN [facility] Comment on above: Performed By: #### P REGU, UMICRO, ERUR #### [facility] [address] [address] [address] Tomasa Ley US SINGLE QUAD RT UPPERon US SINGLE QUAD RT UPPER EXAMINATION: US SINGLE QUAD RT UPPER HISTORY: Tenderness of right upper quadrant of abdomen COMPARISON: Ultrasound kidneys 12/23/2020 TECHNIQUE: Transabdominal evaluation of the right upper quadrant. FINDINGS: LIVER: Normal size and echotexture. Color Doppler demonstrates patent hepatic veins. PORTAL VEIN: Duplex Doppler demonstrates normal hepatopetal flow pattern with flow velocity averaging 30 cm/s. GALLBLADDER: Contains multiple stones. No abnormal wall thickening or free fluid. Negative sonographic Ramirez's sign. BILIARY: Slightly dilated common bile duct, 7 mm in diameter. PANCREASE: No visible mass, abnormal atrophy, or duct dilation. KIDNEY: No hydronephrosis. No visible mass or stones. Size: 12.4 x 6.7 x 6.4 cm IMPRESSION: 1. Cholelithiasis and slightly dilated common bile duct (7 mm), without appreciable acute inflammatory changes. Electronically authenticated by: PATTY MATHEW Date: 2021-07-12 09:45 Normal [facility] CBC AUTO DIFFon 12-23-2020 BASO # 0.1 103/ul Normal 0.0-0.1 [facility] Comment on above: Performed By: #### C BC #### [facility] [address] [address] [address] Tomasa Ley Basophils/100 WBC (Bld) 0.7 % Normal 0.2-2.0 [facility] Comment on above: Performed By: #### C BC #### [facility] [address] [place] [address] Dr. Tomasa Ley EO # 0.1 103/ul Normal 0.0-0.7 [facility] Comment on above: Performed By: #### C BC #### [facility] [address] [place] [address] Dr. Tomasa Ley Eosinophils/100 WBC (Bld) 1.6 % Normal 0.9-7.0 [facility] Comment on above: Performed By: #### C BC #### [facility] [address] [place] [address] Dr. Tomasa Ley Erythrocyte distribution width (RBC) [Ratio] 16.4 % Critically high 11.0-15.0 [facility] Comment on above: Performed By: #### C BC #### [facility] [address] [place] [address] Dr. Tomasa Ley Hematocrit (Bld) [Volume fraction] 41.7 % Normal 36.0-48.0 [facility] Comment on above: Performed By: #### C BC #### [facility] [address] [place] [address] Dr. Tomasa Ley Hemoglobin (Bld) [Mass/Vol] 13.1 g/dL Normal 12.0-16.0 [facility] Comment on above: Performed By: #### C BC #### [facility] [address] [place] [address] Dr. Tomasa Ley IG # 0.01 10e3/ul Normal 0.00-0.03 [facility] Comment on above: Performed By: #### C BC #### [facility] [address] [place] [address] Dr. Tomasa Ley IG % 0.1 % Normal 0.0-0.5 [facility] Comment on above: Performed By: #### C BC #### [facility] [address] [place] [address] Dr. Tomasa Ley LYMPH # 1.9 103/ul Normal 1.2-3.8 [facility] Comment on above: Performed By: #### C BC #### [facility] [address] [place] [address] Dr. Tomasa Ley Lymphocytes/100 WBC (Bld) 25.6 % Normal 20.5-60.0 [facility] Comment on above: Performed By: #### C BC #### [facility] [address] [place] [address] Dr. Tomasa Ley MANUAL DIFF REQ NO Normal [facility] Comment on above: Performed By: #### C BC #### [facility] [address] [place] [address] Dr. Tomasa Ley MCH (RBC) [Entitic mass] 25.4 pg Critically low 26.7-34.0 [facility] Comment on above: Performed By: #### C BC ####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 History Tobacco Use Smoking status: Never Smokeless tobacco: Never Vaping Use Vaping status: Never Used Substance Use Topics Alcohol use: Yes Comment: alcohol-rare caffiene- 3 daily pop, coffee or tea Drug use: Never Depression: Not at risk (09/15/2023) PHQ-2 PHQ-2 Score: 0 Relationship/marital status: Currently in relationship with current , Kahlil, for 10 years. 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 Children: 1 daughter (6 years old) Living situation: Lives in home with and their daughter. They have 3 dogs, a bird and a snake. Occupation: Unemployed for the past 5 years. 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 WOMEN'S HEALTH: Sexually active: Admits Contraception: Nuvaring LMP: 03/29/24; irregular menses Would you like to become within the next year? No Are you taking a daily multivitamin with at least 400 mcg of folic acid? Yes PSYCHIATRIC REVIEW OF SYMPTOMS AND MENTAL STATUS EXAM Psychiatric Review Of Systems: Sleep: Patient admits to problems with falling asleep. Reports bad dreams that seem more realistic. Patient reports going 2-3 days without sleep and this occurred when she was on Lexapro. Appetite changes: Reports loss of appetite and has to force herself to eat some days. Weight changes: Reports losing 10-12 lbs in the past couple of months. She states this is unintentional. Energy: Feels tired most days. Interest/pleasure/anhedonia: Reports motivation that comes and goes. Concentration: Denies any problems Agitation/Irritability: Admits to anger and irritability when she gets overstimulated or lacks sleep. Impulsivity: Patient denies any problems with extreme impulsivity without regard for consequences. Grandiosity: Patient denies any feelings of inflated self esteem or self image. Flight of ideas: Patient denies. Somatic symptoms: Reports chronic joint pain in hips, knees, shoulders and jaw related to underlying hemihypertrophy. Anxiety/panic: reports a lot of anxiety. States she bites her nails, chews the side of her mouth, and rubs her fingers. She states she over thinks a lot. She states she has a lot of social anxiety, but has worked on trying to be more social and go out in public. She reports 2 panic attacks in her past but nothing occurring regularly. Guilty/hopeless: Denies Self-injurious behavior/risky behavior: Denies Suicidal ideation: Denies Suicidal plan: Denies Any current drug use?: Denies Any current alcohol use?: Denies Appearance Appearance: Casual dress, normal grooming and hygiene Behavior Cooperative, conversant, engaged, and with good eye contact. Speech Normal, clear, regular rate, rhythm and volume Affect Blunted Mood Depressed and Anxious Thought Process Organized and Clear Thought Content: Denies suicidal and homicidal ideation. Perception: Denies visual, auditory, and tactile hallucinations. Admits to derealization. Orientation Appropriate to age Memory/Concentration Short term intact and intermediate intact Insight/Judgement Fair OBJECTIVE: Visit Vitals BP 110/74 (BP Location: Right arm, Patient Position: Sitting) Pulse 53 Wt 205 lb BMI 34.11 kg/m OB Status Having periods Smoking Status Never BSA 2.07 m Lab results: 02/14/24 CBC, T3, A1C, Iron (45), Lipids (Cholesterol 234, Triglycerides 212, LDL 153), Creatinine 1.19, GFR 53 ASSESSMENT AND PLAN: Impression: Patient with symptoms consistent with generalized anxiety and mild depression. She reports history of suicidal thoughts with use of Lexapro and increased depression without SI with use of Wellbutrin. She has not been taking Buspar for the past week due to reports of nausea when she does take it. Educated patient on restarting medication and taking with food; patient agreeable to this. Discussed antidepressants having possibility of causing SI and that we need to monitor closely for this. Discussed her chronic medical problems and how to use of SNRI like Duloxetine may help with her chronic pain, while also helping with depression and anxiety. Patient willing to try this medication. Discussed ways to help remember to take her medications to be more consistent with this. Patient aware that we will need to continue to keep dosing and medication choices in mind due to her only having one kidney. 1) Generalized Anxiety - As evidenced by excessive worry and anxiety occurring more days than not for at least 6 months about a number of events or activities; individual finds it difficult to control worry; anxiety and worry are associated with restlessness, feeling on edge, being easily fatigued, difficulty concentrating and mind going blank, irritability, muscle tension, and sleep disturbance. 2) Major Depression - As evidenced by the following symptoms that have occurred frequently over the past 2 weeks: depressed mood most of the day and nearly every day, loss of interest or pleasure, insomnia, fatigue, feelings of worthlessness, trouble concentrating, psychomotor retardation, significant weight loss or weight gain of more than 5% of body weight in a month, decreased appetite, recurrent thoughts of suicide Assessment/Plan Diagnoses and all orders for this visit: Mild episode of recurrent major depressive disorder (HCC) ([facility]/HCC) - DULoxetine (Cymbalta) [address] capsule; Take 1 capsule (20 mg) by mouth Daily Do not crush or chew. MYRANDA (generalized anxiety disorder) (CMS/HCC) - DULoxetine (Cymbalta) [address] capsule; Take 1 capsule (20 mg) by mouth Daily Do not crush or chew. History of hyperprolactinemia Comments: started around [age] years old. 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 - Continue Buspar 10 mg BID for anxiety. - Encouraged counseling for additional mental health support and treatment. - Will need to check prolactin level if SGA is ever started due to history of hyperprolactinemia. - RTC in 4-6 weeks to re-evaluate symptoms. Discussed follow-up plan with patient, and encouraged patient to call office sooner if symptoms worsen or if any questions/concerns arise. Reviewed the risks, benefits, and potential side effects from the medications. The patient agrees the benefits outweigh the risks and agrees to treat their symptoms. Discussed treatment plan, the patient was allowed time to ask questions, and the patient agreed with the plan moving forward. Instructed patient to call office with any complications or potential side effects. Patient instructed to present to the local ER or call Suicide Hotline (128) for any psychosis, suicidal or homicidal ideation, or with any risk of harm to self or others. Patient was seen Face to Face, Total time spent with patient was 60 minutes, which includes reviewing chart documents, previous notes/records, counseling and discussion with patient and/or coordination of care as described above. documented in this encounter [facility] 02-09-2023 Evaluation note Encounter Date Diagnosis Assessment Notes Feb, Injury of left ring finger, initial encounter (ICD-10 - S69.92XA) Discussed x-ray results with patient. No fracture or dislocation. Discussed does have contusion and soft tissue injury to area. Ice and elevation encouraged over the next 48 hours. Alternate Tylenol and ibuprofen. Follow-up with PCP if not gradually improving over the next 5 to 7 days. Patient verbalized understanding of treatment plan. Feb, Injury of left middle finger, initial encounter (ICD-10 - S69.92XA) [facility] 08-01-2023 History general Narrative - Reported* Type Description Date Medical History autoimmune disorder Medical History hyperprolactinemia Medical History Wilms tumor, [place] Surgical History Removal of left kidney 1998 Surgical History GALL BLADDER 12/2022 Hospitalization History Removal of left kidney 1 999 Hospitalization History GALL BLADDER Hospitalization History 1 CHILD [facility] Other Evaluation noteNo assessment information available [facility] Work Phone: Evaluation note* Diagnosis Mild episode of recurrent major depressive disorder (HCC) (CMS/HCC) MYRANDA (generalized anxiety disorder) (CMS/HCC) Generalized anxiety disorder History of hyperprolactinemia Wilm's tumor (nephroblastoma), 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, so described [facility] Diagnosis Mild episode of recurrent major depressive disorder (HCC) (CMS/HCC) MYRANDA (generalized anxiety disorder) (CMS/HCC) Generalized anxiety disorder documented in this encounter [facility] Summary Purpose Family History No Family History Records FoundNo Family History Records FoundNo Family History Records FoundNo Family History Records Found Advance Directives Advance Directive Response Recorded Date/ Time Advance Directives No February 28, 2017 11:19am Additional Source Comments INFORMATION SOURCE (unrecogn ized section and content) DATE CREATED AUTHOR 07/14/2021 [facility] DATE CREATED AUTHOR AUTHOR'S ORGANIZ ATION 12/10/2021 [facility] DATE CREATED AUTHOR AUTHOR'S ORGANIZ ATION 02/14/2023 [facility] DATE CREATED AUTHOR AUTHOR'S ORGANIZ ATION 05/05/2024 [facility] EPIC REASON FOR VISIT (unrecogniz ed section and content) Reason Comments Psychiatric Evaluation NEDA referral Specialty Diagnoses / Procedures Referred By Contac t Referred To Contact Behavioral Health Diagnoses Insomnia, unspecified Procedures WI UNLISTED EVALUATION AND MANAGEMENT Lydia San MD [address] [place] [address] Phone: tel: fax: Sabrina Head NP [address] [address] Phone: tel: fax: Referral ID Status Reason Start Date Expiration Date Visits Re quested Visits Authorized [id number] Closed 04/19/2024 10/16/2024 1 1 Reason Onset Date Comments Medication Problem 05/10/2024 Reason Onset Date Comments Advice Only 05/18/2024 Care Teams (unrecognized sec tion and content) Team Status: Active Member Role Status Dates Lydia San MD Primary Care Provider Active Team Status: Inactive Member Role Status Dates Lydia San MD Primary Care Provider Active Elin Bryan APRN Attending Provider Active Dragline Mechanic Relationship Specialty Start Date End Date Lydia San MD [address] [place] [address] PCP - General Family Medicine 09/15/23 Dragline Mechanic Relationship Specialty Start Date End Date Lydia San MD [address] [place] [address] PCP - General Family Medicine 09/15/23 Sabrina Head NP [address] [id number] Nurse Practitioner Behavioral Health 05/04/24 Dragline Mechanic Relationship Specialty Start Date End Date Lydia San MD [address] [place] [address] PCP - General Family Medicine 09/15/23 Sarbina Head NP 112 [facility] [address] [place] [address] Nurse Practitioner Behavioral Health 05/04/24 Dragline Mechanic Relationship Specialty Start Date End Date Lydia San MD [address] [place] [id number] PCP - General Family Medicine 09/15/23 Sabrina Head NP [address] [id number] Nurse Practitioner Behavioral Health 05/04/24 Goals (unrecognized section and content) Goals may be documented in a n alternate section FOR RECORDS PERTAINING TO PATIENTS WHO ARE OR HAVE BEEN ENROLLED IN A CHEMICAL DEPENDENCY/SUBSTANCEABUSE PROGRAM, SOME INFORMATION MAY BE OMITTED. This clinical summary was aggregated from multiple sources. Caution should be exercised in using it in the provision of clinical care. This summary normalizes information from multiple sources, and as a consequence, information in this document may materially change the coding, format and clinical context of patient data. In addition, data may be omitted in some cases. CLINICAL DECISIONS SHOULD BE BASED ON THE PRIMARY CLINICAL RECORDS. [employer] provides no warranty or guarantee of the accuracy or completeness of information in this document.
== END 2024-05-26 07:56 | disposition home or self-care (01) ==
LOC: VC 07:55
PROVIDERS: PCP Family Medicine; Visit Provider Family Medicine
DX: R09.89 Other specified symptoms and signs involving the circulatory and respiratory systems (principal); M79.606 Pain in leg, unspecified; R07.9 Chest pain, unspecified; D64.9 Anemia, unspecified; I50.30 Unspecified diastolic (congestive) heart failure
CPT/HCPCS: 36415; 80053; 83540; 83880; 84436; 84443; 84481; 85025; 93923

== ENCOUNTER 2024-05-26 08:30 | Outpatient (OUT) | payer BC, SELFPAY ==
--- OUTSIDE RECORDS SUMMARY | 2024-05-26 08:36 | XMS_ITS | CCD ---
Author Organization [facility]iniSy[facility] Care Team Providers Care Chief Clerk Name Role Phone SAMEER, DR FREEMAN Admitting [...] ZIEBALEKSEY, DR PATTY Vu Consulting Unavailable Elin Bryna Unavailable MD Lydia San Primary Care Provider [phone] TETE Bryan Attending Provider Lydia San Primary Care Unavailable Elin Bryan Admitting Unavailable Elin Bryan Attending Unavailable Rob Coello Admitting Unavailab Rob Broderick Attending Unavailab le Lydia San Primary Care Unavailable Lydia San MD Primary Care Provider [phone] FER ROMAN Attending Unavailable ROMAN, PENOLA P Referring Unavailable FER ROMAN Referring Unavailable FER ROMAN Attending Unavailable FER ROMAN Attending Unavailable FER ROMAN Referring Unavailable SABRINA HEAD Attending Unavailable LYDIA SAN Referring Unavailable Sabrina Head NP Unavailable Allergies Allergy Classification Reported Allergen(s) Allergy Type Date of Onset Reaction(s) Facility (1 source) HYDROcodone Drug Allergy [facility] Repository (5 sources) buPROPion Drug Allergy 4 Other [facility] Healthcare (5 sources) Escitalopram Drug Allergy 4 Other [facility] Healthcare (5 sources) Wound Dressing Adhesive Drug Intolerance 3 [facility] Healthcare Medications Current Medications Medication Drug Class(es) [...] Discontinued (Side effects) 21 day ethinyl estradiol 0.140022 mg/hr / etonogestrel 0.005 mg/hr vaginal system [...] tablet 1 05/10/2024 05/18/2024 Discontinued (Side effects) Oktaha (No Known Home Meds) (1 source) Start: 07-20-2021 Oktaha (No Known Home Meds) Active July 20, [...] Drug Class(es) Dates Sig (Normalized) Sig (Original) [id number] 200 actuat albuterol 0.09 mg/actuat metered dose [...] 2018 1:00am July 20, 2021 4:10pm Vit 06-Pgrc-Rwrkk-Dha ( + Dha) 28 mg iron- 975 mcg-200 mg Combo Pack (1 source) Start: 06-18-2018 End: 07-20-2021 Vit 82-Bqur-Omwts-Dha ( + Dha) 28 mg iron- 975 [...] 3V*on 023 XR hand LT min 3V* [facility] [place] [place] [address] XRay Report Signed Patient: Lindsay Montilla MR#: [id number] 0 : 1990 Acct:[id number] Age/Sex: 32 / F ADM Date: 02/09/23 Loc: XDUC Room: Type: [facility] Attending Dr: Elin Bryan APRN Copies to: [...] Kathleen Cheng M.D.02/09/2023 3:30 PM Dictation Location: [place] [address] Transcribed By: [facility] 02/09/23 1530 Dictated By: Kathleen Cheng MD 02/09/23 1529 Signed By: 02/09/23 153 Normal [facility] XR hand LT min 3V* [facility] 1EQ Other XR hand LT min 3V* [facility] Other XR hand LT min 3V* [facility] 1EQ Other XR hand LT min 3V* JOSE Velazquez [address] [place] 1EQ Other XR hand LT min 3V* XRay Report urturn Other XR hand LT min 3V* Signed urturn Other XR hand LT min 3V* Patient: Lindsay Montilla MR#: [id number] [place] 1EQ Other XR hand LT min 3V* 0 urturn Other XR hand LT min 3V* : 1990 Acct:[id number] urturn Other XR hand LT min 3V* Age/Sex: 32 / F ADM Date: 02/09/23 urturn Other XR hand LT min 3V* Loc: XDUCLY Room: Type: [facility] urturn Other XR hand LT min 3V* Attending Dr: Elin Bryan SOCIAL WORKER ASSISTANT urturn Other XR hand LT min 3V* Copies to: Elin Bryan SOCIAL WORKER ASSISTANT urturn Other XR hand LT min 3V* Ordering Provider: Elin Bryan APRN urturn Other XR hand LT min 3V* Date of Service: 02/09/23 urturn Other XR hand LT min 3V* XR/XR hand LT min 3V*: LEFT HAND INJURY urturn Other XR hand LT min 3V* LEFT HAND - 3 views urturn Other XR hand LT min 3V* CLINICAL DATA: Crush injury of the left fingers this morning. Pain and swelling at the third and urturn Other XR hand LT min 3V* fourth digits. No rt 1EQ Other XR hand LT min 3V* COMPARISON: None urturn Other XR hand LT min 3V* AP, lateral and oblique views were obtained. There is no evidence of fracture or dislocation. urturn Other XR hand LT min 3V* There are no significant soft tissue abnormalities. urturn Other XR hand LT min 3V* XR/XR hand LT min 3V* urturn Other XR hand LT min 3V* IMPRESSION: urturn Other XR hand LT min 3V* NO ACUTE BONY INJURY. urturn Other XR hand LT min 3V* Impression dictated by: Kathleen Cheng M.D.02/09/2023 3:30 PM urturn Other XR hand LT min 3V* Dictation Location: [place] [address] urturn Other XR hand LT min 3V* Transcribed By: MARLA 02/09/23 1530 urturn Other XR hand LT min 3V* Dictated By: Kathleen Cheng MD 02/09/23 1529 urturn Other XR hand LT min 3V* Signed By: urturn Other XR hand LT min 3V* 02/09/23 1530 Nor 1EQ Other GI PANEL (PCR)on 12-08-2021 Adenovirus F 40/41 Not detected Normal NOT DETECTED [facility] Comment on above: Performed By: #### G IPANEL #### [facility] [address] [address] [address] Tomasa Ley Astrovirus Not detected Normal NOT DETECTED [facility] Comment on above: Performed By: #### G IPANEL #### [facility] [address] [place] [address] Dr. Tomasa Ley C. Diff toxin A/B Not detected Normal NOT DETECTED [facility] Comment on above: Performed By: #### G IPANEL #### [facility] [address] [place] [address] [address] Tomasa Ley Campylobacter Not detected Normal NOT DETECTED [facility] Comment on above: Performed By: #### G IPANEL #### [facility] [address] [place] [address] Dr. Tomasa Ley Cryptosporidium Not detected Normal NOT DETECTED [facility] Comment on above: Performed By: #### G IPANEL #### [facility] [address] [place] [address] Dr. Tomasa Ley Cyclos. Cayetanensis Not detected Normal NOT DETECTED [facility] Comment on above: Performed By: #### G IPANEL #### [facility] [address] [place] [address] Dr. Tomasa Ley E. Coli O157 Not Applicable Normal Not Applicable [facility] Comment on above: Performed By: #### G IPANEL #### [facility] [address] [place] [address] Dr. Tomasa Ley E. histolytica Not detected Normal NOT DETECTED [facility] Comment on above: Performed By: #### G IPANEL #### [facility] [address] [place] [address] Dr. Tomasa Ley EAEC Not detected Normal NOT DETECTED [facility] Comment on above: Performed By: #### G IPANEL #### [facility] [address] [place] [address] Dr. Tomasa Ley EIEC Not detected Normal NOT DETECTED [facility] Comment on above: Performed By: #### G IPANEL #### [facility] [address] [address] [address] Tomasa Ley EPEC Not detected Normal NOT DETECTED [facility] Comment on above: Performed By: #### G IPANEL #### [facility] [address] [address] [address] Tomasa Ley ETEC Not detected Normal NOT DETECTED [facility] Comment on above: Performed By: #### G IPANEL #### [facility] [address] [address] [address] Tomasa Zuñiga Lamblia Not detected Normal NOT DETECTED [facility] Comment on above: Performed By: #### G IPANEL #### [facility] [address] [address] [address] Tomasa LOO CONTROLS PASSED Normal [facility] Comment on above: Performed By: #### G IPANEL #### [facility] [address] [place] [address] Dr. Tomasa SNYDER HEADER GI PANEL BACTERIA Normal [facility] Comment on above: Performed By: #### G IPANEL #### [facility] [address] [address] [address] Tomasa RUCKER ECOLI GI PANEL DIARRHEAGENIC E.COLI / SHIGELLA Normal [facility] Comment on above: Performed By: #### G IPANEL #### [facility] [address] [place] [address] Dr. Tomasa RUCKER INFO SEE BELOW Normal [facility] Comment on above: Result Comment: EAEC - Enteroaggregative E. Coli EPEC- Enteropathogenic E. Coli ETEC- Enterotoxigenic E. Coli lt/st STEC- Shigella-like toxin-producing E. Coli stx1/stx2 EIEC- Shigella/Enteroinvasive E. Coli Performed By: #### G IPANEL #### [facility] [address] [place] [address] Dr. Tomasa RUCKER PARASITES GI PANEL PARASITES Normal [facility] Comment on above: Performed By: #### G IPANEL #### [facility] [address] [address] [address] [facility] VIRUSES Normal [facility] Comment on above: Performed By: #### G IPANEL #### [facility] [address] [place] [address] Dr. Tomasa Ley Norovirus GI/GII Not detected Normal NOT DETECTED [facility] Comment on above: Performed By: #### G IPANEL #### [facility] [address] [place] [address] Dr. Tomasa Ley P. Shigelloides Not detected Normal NOT DETECTED [facility] Comment on above: Performed By: #### G IPANEL #### [facility] [address] [place] [address] Dr. Tomasa Ley Rotavirus A Not detected Normal NOT DETECTED [facility] Comment on above: Performed By: #### G IPANEL #### [facility] [address] [place] [address] Dr. Tomasa Ley Salmonella Not detected Normal NOT DETECTED [facility] Comment on above: Performed By: #### G IPANEL #### [facility] [address] [place] [address] Dr. Tomasa Ley Sapovirus Not detected Normal NOT DETECTED [facility] Comment on above: Performed By: #### G IPANEL #### [facility] [address] [place] [address] Dr. Tomasa Ley STEC Not detected Normal NOT DETECTED [facility] Comment on above: Performed By: #### G IPANEL #### [facility] [address] [place] [address] Dr. Tomasa Ley Vibrio Not detected Normal NOT DETECTED [facility] Comment on above: Performed By: #### G IPANEL #### [facility] [address] [place] [address] Dr. Tomasa Ley Vibrio Cholera Not detected Normal NOT DETECTED [facility] Comment on above: Performed By: #### G IPANEL #### [facility] [address] [place] [address] Dr. Tomasa Ley Y. Enterocolitica Not detected Normal NOT DETECTED [facility] Comment on above: Performed By: #### G IPANEL #### [facility] [address] [place] [address] Dr. Tomasa Ley US PELVIS AND TRANSVAGon [...] VINAY BURROUGHS Date: 2021-11-12 19:43 Normal [facility] AMYLASEon 10-28-2021 Amylase [Catalytic activity/Vol] 36 U/L Normal 25-115 [facility] Comment on above: Performed By: #### C BC #### [facility] [address] [place] [address] Dr. Tomasa Ley CBC AUTO DIFFon 10-28-2021 BASO # 0.0 103/ul Normal 0.0-0.1 [facility] Comment on above: Performed By: #### C BC #### [facility] [address] [place] [address] Dr. Tomasa Ley Basophils/100 WBC (Bld) 0.4 % Normal 0.2-2.0 [facility] Comment on above: Performed By: #### C BC #### [facility] [address] [place] [address] Dr. Tomasa Ley EO # 0.1 103/ul Normal 0.0-0.7 [facility] Comment on above: Performed By: #### C BC #### [facility] [address] [place] [address] Dr. Tomasa Ley Eosinophils/100 WBC (Bld) 0.6 % Critically low 0.9-7.0 [facility] Comment on above: Performed By: #### C BC #### [facility] [address] [place] [address] Dr. Tomasa Ley Erythrocyte distribution width (RBC) [Ratio] 15.2 % Critically high 11.0-15.0 [facility] Comment on above: Performed By: #### C BC #### [facility] [address] [place] [address] Dr. Tomasa Ley Hematocrit (Bld) [Volume fraction] 45.1 % Normal 36.0-48.0 [facility] Comment on above: Performed By: #### C BC #### [facility] [address] [place] [address] Dr. Tomasa Ley Hemoglobin (Bld) [Mass/Vol] 14.2 g/dL Normal 12.0-16.0 [facility] Comment on above: Performed By: #### C BC #### [facility] [address] [place] [address] Dr. Tomasa Ley IG # 0.02 10e3/ul Normal 0.00-0.03 [facility] Comment on above: Performed By: #### C BC #### [facility] [address] [place] [address] Dr. Tomasa Ley IG % 0.3 % Normal 0.0-0.5 [facility] Comment on above: Performed By: #### C BC #### [facility] [address] [place] [address] Dr. Tomasa Ley LYMPH # 1.6 103/ul Normal 1.2-3.8 [facility] Comment on above: Performed By: #### C BC #### [facility] [address] [place] [address] Dr. Tomasa Ley Lymphocytes/100 WBC (Bld) 19.6 % Critically low 20.5-60.0 [facility] Comment on above: Performed By: #### C BC #### [facility] [address] [place] [address] Dr. Tomasa Ley MANUAL DIFF REQ NO Normal [facility] Comment on above: Performed By: #### C BC #### [facility] [address] [address] [address] Tomasa Ley MCH (RBC) [Entitic mass] 25.9 pg Critically low 26.7-34.0 [facility] Comment on above: Performed By: #### C BC #### [facility] [address] [place] [address] Dr. Tomasa Ley MCHC (RBC) [Mass/Vol] 31.5 g/dL Normal 29.9-35.2 [facility] Comment on above: Performed By: #### C BC #### [facility] [address] [place] [address] Dr. Tomasa Ley MCV (RBC) [Entitic vol] 82.1 fL Normal 81.0-99.0 [facility] Comment on above: Performed By: #### C BC #### [facility] [address] [place] [address] Dr. Tomasa Ley MONO # 0.6 103/ul Normal 0.3-0.8 [facility] Comment on above: Performed By: #### C BC #### [facility] [address] [place] [address] Dr. Tomasa Ley Monocytes/100 WBC (Bld) 7.5 % Normal 1.7-12.0 [facility] Comment on above: Performed By: #### C BC #### [facility] [address] [place] [address] Dr. Tomasa Ley NEUT # 5.7 103/ul Normal 1.4-6.5 [facility] Comment on above: Performed By: #### C BC #### [facility] [address] [place] [address] Dr. Tomasa Ley Neutrophils/100 WBC (Bld) 71.6 % Normal 43.0-75.0 [facility] Comment on above: Performed By: #### C BC #### [facility] [address] [place] [address] Dr. Tomasa Ley Platelet mean volume (Bld) [Entitic vol] 11.3 fL Normal 9.5-13.5 [facility] Comment on above: Performed By: #### C BC #### [facility] [address] [place], [place] [address] Dr. Tomasa Ley PLT 246 103/ul Normal 150-450 [facility] Comment on above: Performed By: #### C BC #### [facility] [address] [place], [place] [address] Dr. Tomasa Ley RBC 5.49 106/ul Critically high 4.20-5.40 [facility] Comment on above: Performed By: #### C BC #### [facility] [address] [place], [place] [address] Dr. Tomasa Ley WBC 8.0 103/ul Normal 4.0-11.0 [facility] Comment on above: Performed By: #### C BC #### [facility] [address] [place], [place] [address] ABD/PELVIS WO CONon [...] VINAY ALVAREZ Date: 2021-10-28 10:13 Normal [facility] CULTURE URINEon 10-28-2021 CULTURE URINE Culture Observations : NO GROWTH. Normal [facility] Comment on above: Performed By: #### P RINKU CHERRY, ERUR #### [facility] [address] [address] [address] Tomasa Ley ER URINE PROFILEon 2 Bilirubin Ql (U) Negative Normal NEGATIVE [facility] Comment on above: Performed By: #### U MICRO, ERUR #### [facility] [address] [address] [address] Tomasa Ley Clarity (U) CLEAR Normal CLEAR [facility] Comment on above: Performed By: #### U MICRO, ERUR #### [facility] [address] [address] [address] Tomasa Ley Color (U) LT. YELLOW Normal YELLOW [facility] Comment on above: Performed By: #### U MICRO, ERUR #### [facility] [address] [address] [address] Tomasa ESTEBAN A micrscopic examination will be performed if indicated. Normal [facility] Comment on above: Performed By: #### U MICRO, ERUR #### [facility] [address] [address] [address] Tomasa Ley Glucose Ql (U) Negative Normal NEGATIVE [facility] Comment on above: Performed By: #### U MICRO, ERUR #### [facility] [address] [address] [address] Tomasa Ley Hemoglobin Ql (U) Negative Normal NEGATIVE [facility] Comment on above: Performed By: #### U MICRO, ERUR #### [facility] [address] [address] [address] Tomasa Ley Ketones Ql (U) Negative Normal NEGATIVE [facility] Comment on above: Performed By: #### U MICRO, ERUR #### [facility] [address] [place] [address] Dr. Tomasa Ley LEUKOCYTES SMALL Abnormal NEGATIVE [facility] Comment on above: Performed By: #### U MICRO, ERUR #### [facility] [address] [address] [address] Tomasa Ley Nitrite Ql (U) Negative Normal NEGATIVE [facility] Comment on above: Performed By: #### U MICRO, ERUR #### [facility] [address] [address] [address] Tomasa Ley pH (U) 5.5 [pH] Normal 5-9 [facility] Comment on above: Performed By: #### U MICRO, ERUR #### [facility] [address] [address] [address] Tomasa Ley SPEC GRAVITY 1.020 Normal 1.005-<=1.[address] [facility] Comment on above: Performed By: #### U MICRO, ERUR #### [facility] [address] [address] [address] Tomasa Ley UA PROTEIN Negative Normal NEGATIVE/ TRACE [facility] Comment on above: Performed By: #### U MICRO, ERUR #### [facility] [address] [place] [address] Dr. Tomasa Ley UR MICRO IND INDICATED Normal [facility] Comment on above: Performed By: #### U MICRO, ERUR #### [facility] [address] [place] [address] Dr. Tomasa Ley Urobilinogen Qn (U) 0.2 {Sly'U}/dL Normal 0.2 - 1. 0 [facility] Comment on above: Performed By: #### U MICRO, ERUR #### [facility] [address] [place] [address] Dr. Tomasa Ley LIPASEon 10-28-2021 Lipase [Catalytic activity/Vol] 142.0 U/L Normal 73.0-393.0 [facility] Comment on above: Performed By: #### C BC #### [facility] [address] [place] [address] Dr. Tomasa Ley PROF 14(COMP METB)on 022 Albumin [Mass/Vol] 3.9 g/dL Normal 3.4-5.0 [facility] Comment on above: Performed By: #### C BC #### [facility] [address] [place] [address] Dr. Tomasa Ley Albumin/Globulin [Mass ratio] 1.0 {ratio} Normal [facility] Comment on above: Performed By: #### C BC #### [facility] [address] [place] [address] Dr. Tomasa Ley ALP [Catalytic activity/Vol] 107 U/L Normal 46-116 [facility] Comment on above: Performed By: #### C BC #### [facility] [address] [place] [address] Dr. Tomasa Ley ALT [Catalytic activity/Vol] 24 U/L Normal 14-59 [facility] Comment on above: Performed By: #### C BC #### [facility] [address] [place] [address] Dr. Tomasa Ley Anion gap [Moles/Vol] 13.4 mmol/L Normal [facility] Comment on above: Performed By: #### C BC #### [facility] [address] [place] [address] Dr. Tomasa Ley AST [Catalytic activity/Vol] 18 U/L Normal 15-37 [facility] Comment on above: Performed By: #### C BC #### [facility] [address] [place] [address] Dr. Tomasa Ley Bilirubin [Mass/Vol] 0.2 mg/dL Normal 0.2-1.0 [facility] Comment on above: Performed By: #### C BC #### [facility] [address] [place] [address] Dr. Tomasa Ley Calcium [Mass/Vol] 8.8 mg/dL Normal 8.5-10.1 [facility] Comment on above: Performed By: #### C BC #### [facility] [address] [place] [address] Dr. Tomasa Ley Chloride [Moles/Vol] 103 mmol/L Normal 98-107 [facility] Comment on above: Performed By: #### C BC #### [facility] [address] [place] [address] Dr. Tomasa Ley CO2 [Moles/Vol] 27.6 mmol/L Normal 21.0-32.[address] [facility] Comment on above: Performed By: #### C BC #### [facility] [address] [place] [address] Dr. Tomasa Ley Creatinine [Mass/Vol] 1.07 mg/dL Critically high 0.55-1.02 [facility] Comment on above: Performed By: #### C BC #### [facility] [address] [place] [address] Dr. Tomasa Ley EGFR-AF KOSOVAN >60 Normal >=[address] [facility] Comment on above: Performed By: #### C BC #### [facility] [address] [place] [address] Dr. Tomasa Ley EGFR-NON AF KOSOVAN >60 Normal >=60 [facility] Comment on above: Performed By: #### C BC #### [facility] [address] [place] [address] Dr. Tomasa Ley Globulin (S) [Mass/Vol] 3.8 g/dL Normal [facility] Comment on above: Performed By: #### C BC #### [facility] [address] [place] [address] Dr. Tomasa Ley Glucose [Mass/Vol] 90 mg/dL Normal 74-106 [facility] Comment on above: Performed By: #### C BC #### [facility] [address] [place] [address] Dr. Tomasa Ley Potassium [Moles/Vol] 4.0 mmol/L Normal 3.5-5.1 [facility] Comment on above: Performed By: #### C BC #### [facility] [address] [place] [address] Dr. Tomasa Ley Protein [Mass/Vol] 7.7 g/dL Normal 6.4-8.2 [facility] Comment on above: Performed By: #### C BC #### [facility] [address] [place] [address] Dr. Tomasa Ley Sodium [Moles/Vol] 140 mmol/L Normal 136-145 [facility] Comment on above: Performed By: #### C BC #### [facility] [address] [place] [address] Dr. Tomasa Ley Urea nitrogen [Mass/Vol] 9.0 mg/dL Normal 7.0-18.0 [facility] Comment on above: Performed By: #### C BC #### [facility] [address] [place] [address] Dr. Tomasa Ley Urea nitrogen/Creatinine [Mass ratio] 8.4 mg/mg Normal [facility] Comment on above: Performed By: #### C BC #### [facility] [address] [place] [address] Dr. Tomasa Ley URINE MICROSCOPIC ONLYon BACTERIA SMALL Abnormal NONE SEEN [facility] Comment on above: Performed By: #### U MICRO, ERUR #### [facility] [address] [place] [address] Dr. Tomasa Ley Bacteria identified Cx Nom (U) INDICATED Normal [facility] Comment on above: Performed By: #### U MICRO, ERUR #### [facility] [address] [address] [address] Tomasa Ley CAST NONE SEEN Normal NONE SEEN [facility] Comment on above: Performed By: #### U MICRO, ERUR #### [facility] [address] [address] [address] Tomasa Ley Crystals LM Nom (Urine sed) NONE SEEN Normal NONE SEEN [facility] Comment on above: Performed By: #### U MICRO, ERUR #### [facility] [address] [address] [address] Tomasa Ley Epithelial cells LM Ql (Urine sed) MODERATE Abnormal NONE SEEN /RARE [facility] Comment on above: Performed By: #### U MICRO, ERUR #### [facility] [address] [place] [address] Dr. Tomasa Ley MUCOUS NONE SEEN Normal NONE SEEN [facility] Comment on above: Performed By: #### U MICRO, ERUR #### [facility] [address] [place] [address] Dr. Tomasa Ley RBC 2-5 Abnormal 0-2 [facility] Comment on above: Performed By: #### U MICRO, ERUR #### [facility] [address] [place] [address] Dr. Tomasa Ley WBC 5-10 Abnormal NONE SEEN [facility] Comment on above: Performed By: #### U MICRO, ERUR #### [facility] [address] [place] [address] Dr. Tomasa Ley NM HEPATOBILIARY SCAN W [...] by: PATTY MATHEW Date: 2021-07-20 11:49 Normal [facility] Physician Referralon 022 Physician Referral [id number] Normal [facility] AMYLASEon 07-12-2021 Amylase [Catalytic activity/Vol] 35 U/L Normal 31-110 [facility] Comment on above: Performed By: #### C BC #### [facility] [address] [place] [address] Dr. Tomasa Ley CBC AUTO DIFFon 07-12-2021 BASO # 0.0 103/ul Normal 0.0-0.1 [facility] Comment on above: Performed By: #### C BC #### [facility] [address] [place] [address] Dr. Tomasa Ley Basophils/100 WBC (Bld) 0.5 % Normal 0.2-2.0 [facility] Comment on above: Performed By: #### C BC #### [facility] [address] [place] [address] Dr. Tomasa Ley EO # 0.1 103/ul Normal 0.0-0.7 [facility] Comment on above: Performed By: #### C BC #### [facility] [address] [place] [address] Dr. Tomasa Ley Eosinophils/100 WBC (Bld) 1.1 % Normal 0.9-7.0 [facility] Comment on above: Performed By: #### C BC #### [facility] [address] [place] [address] Dr. Tomasa Ley Erythrocyte distribution width (RBC) [Ratio] 16.2 % Critically high 11.0-15.0 [facility] Comment on above: Performed By: #### C BC #### [facility] [address] [place] [address] Dr. Tomasa Ley Hematocrit (Bld) [Volume fraction] 43.6 % Normal 36.0-48.0 [facility] Comment on above: Performed By: #### C BC #### [facility] [address] [place] [address] Dr. Tomasa Ley Hemoglobin (Bld) [Mass/Vol] 14.2 g/dL Normal 12.0-16.0 [facility] Comment on above: Performed By: #### C BC #### [facility] [address] [place] [address] Dr. Tomasa Ley IG # 0.02 10e3/ul Normal 0.00-0.03 [facility] Comment on above: Performed By: #### C BC #### [facility] [address] [place] [address] Dr. Tomasa Ley IG % 0.3 % Normal 0.0-0.5 [facility] Comment on above: Performed By: #### C BC #### [facility] [address] [place] [address] Dr. Tomasa Ley LYMPH # 2.0 103/ul Normal 1.2-3.8 [facility] Comment on above: Performed By: #### C BC #### [facility] [address] [place] [address] Dr. Tomasa Ley Lymphocytes/100 WBC (Bld) 25.8 % Normal 20.5-60.0 [facility] Comment on above: Performed By: #### C BC #### [facility] [address] [place] [address] Dr. Tomasa Ley MANUAL DIFF REQ NO Normal [facility] Comment on above: Performed By: #### C BC #### [facility] [address] [place] [address] Dr. Tomasa Ley MCH (RBC) [Entitic mass] 26.6 pg Critically low 26.7-34.0 [facility] Comment on above: Performed By: #### C BC #### [facility] [address] [place] [address] Dr. Tomasa Ley MCHC (RBC) [Mass/Vol] 32.6 g/dL Normal 29.9-35.2 [facility] Comment on above: Performed By: #### C BC #### [facility] [address] [place] [address] Dr. Tomasa Ley MCV (RBC) [Entitic vol] 81.6 fL Normal 81.0-99.0 [facility] Comment on above: Performed By: #### C BC #### [facility] [address] [place] [address] Dr. Tomasa Ley MONO # 0.7 103/ul Normal 0.3-0.8 [facility] Comment on above: Performed By: #### C BC #### [facility] [address] [place] [address] Dr. Tomasa Ley Monocytes/100 WBC (Bld) 9.1 % Normal 1.7-12.0 [facility] Comment on above: Performed By: #### C BC #### [facility] [address] [place] [address] Dr. Tomasa Ley NEUT # 5.0 103/ul Normal 1.4-6.5 [facility] Comment on above: Performed By: #### C BC #### [facility] [address] [place] [address] Dr. Tomasa Ley Neutrophils/100 WBC (Bld) 63.2 % Normal 43.0-75.0 [facility] Comment on above: Performed By: #### C BC #### [facility] [address] [place] [address] Dr. Tomasa Ley Platelet mean volume (Bld) [Entitic vol] 11.0 fL Normal 9.5-13.5 [facility] Comment on above: Performed By: #### C BC #### [facility] [address] [place] [address] Dr. Tomasa Ley PLT 236 103/ul Normal 150-450 [facility] Comment on above: Performed By: #### C BC #### [facility] [address] [place] [address] Dr. Tomasa Ley RBC 5.34 106/ul Normal 4.20-5.40 [facility] Comment on above: Performed By: #### C BC #### [facility] [address] [place] [address] Dr. Tomasa Ley WBC 7.9 103/ul Normal 4.0-11.0 [facility] Comment on above: Performed By: #### C BC #### [facility] [address] [address] [address] Tomasa Ley ER URINE PROFILEon 2 Bilirubin Ql (U) Negative Normal NEGATIVE [facility] Comment on above: Performed By: #### P REGU, UMICRO, ERUR #### [facility] [address] [place] [address] Dr. Tomasa Ley Clarity (U) CLEAR Normal CLEAR [facility] Comment on above: Performed By: #### P REGU, UMICRO, ERUR #### [facility] [address] [place] [address] Dr. Tomasa Ley Color (U) LT. YELLOW Normal YELLOW [facility] Comment on above: Performed By: #### P REGU, UMICRO, ERUR #### [facility] [address] [place] [address] Dr. Tomasa ESTEBAN A micrscopic examination will be performed if indicated. Normal [facility] Comment on above: Performed By: #### P REGU, UMICRO, ERUR #### [facility] [address] [place] [address] Dr. Tomasa Ley Glucose Ql (U) Negative Normal NEGATIVE [facility] Comment on above: Performed By: #### P REGU, UMICRO, ERUR #### [facility] [address] [address] [address] Tomasa Ley Hemoglobin Ql (U) TRACE-INTACT Abnormal NEGATIVE [facility] Comment on above: Performed By: #### P REGU, UMICRO, ERUR #### [facility] [address] [place] [address] Dr. Tomasa Ley Ketones Ql (U) Negative Normal NEGATIVE [facility] Comment on above: Performed By: #### P REGU, UMICRO, ERUR #### [facility] [address] [address] [address] Tomasa Ley LEUKOCYTES Negative Normal NEGATIVE [facility] Comment on above: Performed By: #### P REGU, UMICRO, ERUR #### [facility] [address] [address] [address] Tomasa Ley Nitrite Ql (U) Negative Normal NEGATIVE [facility] Comment on above: Performed By: #### P REGU, UMICRO, ERUR #### [facility] [address] [address] [address] Tomasa Ley pH (U) 5.5 [pH] Normal 5-9 [facility] Comment on above: Performed By: #### P REGU, UMICRO, ERUR #### [facility] [address] [place] [address] Dr. Tomasa Ley SPEC GRAVITY >=1.030 Abnormal 1.005-<=1.025 [facility] Comment on above: Performed By: #### P REGU, UMICRO, ERUR #### [facility] [address] [address] [address] Tomasa Ley UA PROTEIN Negative Normal NEGATIVE/ TRACE [facility] Comment on above: Performed By: #### P REGU, UMICRO, ERUR #### [facility] [address] [address] [address] Tomasa Ley UR MICRO IND INDICATED Normal [facility] Comment on above: Performed By: #### P REGU, UMICRO, ERUR #### [facility] [address] [address] [address] Tomasa Ley Urobilinogen Qn (U) 0.2 {Sly'U}/dL Normal 0.2 - 1. 0 [facility] Comment on above: Performed By: #### P REGU, UMICRO, ERUR #### [facility] [address] [address] [address] Tomasa Ley LIPASEon 07-12-2021 Lipase [Catalytic activity/Vol] 140.0 U/L Normal 23.0-300.0 [facility] Comment on above: Performed By: #### C BC #### [facility] [address] [place] [address] Dr. Tomasa Ley URon 07-12-2021 , QUAL Negative Normal NEGATIVE [facility] Comment on above: Performed By: #### P REGU, UMICRO, ERUR #### [facility] [address] [place] [address] Dr. Tomasa Ley PROF 14(COMP METB)on 022 Albumin [Mass/Vol] 3.9 g/dL Normal 3.5-5.0 [facility] Comment on above: Performed By: #### C BC #### [facility] [address] [place] [address] Dr. Tomasa Ley Albumin/Globulin [Mass ratio] 1.0 {ratio} Normal [facility] Comment on above: Performed By: #### C BC #### [facility] [address] [place] [address] Dr. Tomasa Ley ALP [Catalytic activity/Vol] 102 U/L Normal 38-126 [facility] Comment on above: Performed By: #### C BC #### [facility] [address] [place] [address] Dr. Tomasa Ley ALT [Catalytic activity/Vol] 15 U/L Normal 9-52 [facility] Comment on above: Performed By: #### C BC #### [facility] [address] [place] [address] Dr. Tomasa Ley Anion gap [Moles/Vol] 12.3 mmol/L Normal [facility] Comment on above: Performed By: #### C BC #### [facility] [address] [place] [address] Dr. Tomasa Ley AST [Catalytic activity/Vol] 14 U/L Normal 14-36 [facility] Comment on above: Performed By: #### C BC #### [facility] [address] [place] [address] Dr. Tomasa Ley Bilirubin [Mass/Vol] 0.3 mg/dL Normal 0.2-1.3 [facility] Comment on above: Performed By: #### C BC #### [facility] [address] [place] [address] Dr. Tomasa Ley Calcium [Mass/Vol] 8.8 mg/dL Normal 8.4-10.2 [facility] Comment on above: Performed By: #### C BC #### [facility] [address] [address] [address] Tomasa Ley Chloride [Moles/Vol] 103 mmol/L Normal 98-107 [facility] Comment on above: Performed By: #### C BC #### [facility] [address] [place] [address] Dr. Tomasa Ley CO2 [Moles/Vol] 25.5 mmol/L Normal 22.0-30.0 [facility] Comment on above: Performed By: #### C BC #### [facility] [address] [place] [address] Dr. Tomasa Ley Creatinine [Mass/Vol] 1.01 mg/dL Normal 0.52-1.04 [facility] Comment on above: Performed By: #### C BC #### [facility] [address] [place] [address] Dr. Tomasa Ley EGFR-AF KOSOVAN 60 mL/min/1.73m2 Normal >=60 [facility] Comment on above: Performed By: #### C BC #### [facility] [address] [place] [address] Dr. Tomasa Ley EGFR-NON AF KOSOVAN 60 mL/min/1.73m2 Normal >=60 [facility] Comment on above: Performed By: #### C BC #### [facility] [address] [place] [address] Dr. Tomasa Ley Globulin (S) [Mass/Vol] 3.8 g/dL Normal [facility] Comment on above: Performed By: #### C BC #### [facility] [address] [address] [address] Tomasa Ley Glucose [Mass/Vol] 95 mg/dL Normal 74-106 [facility] Comment on above: Performed By: #### C BC #### [facility] [address] [address] [address] Tomasa Ley Potassium [Moles/Vol] 3.8 mmol/L Normal 3.4-5.0 [facility] Comment on above: Performed By: #### C BC #### [facility] [address] [address] [address] Tomasa Ley Protein [Mass/Vol] 7.7 g/dL Normal 6.1-8.2 [facility] Comment on above: Performed By: #### C BC #### [facility] [address] [address] [address] Tomasa Ley Sodium [Moles/Vol] 137 mmol/L Normal 137-145 [facility] Comment on above: Performed By: #### C BC #### [facility] [address] [place] [address] Dr. Tomasa Ley Urea nitrogen [Mass/Vol] 16.0 mg/dL Normal 7.0-17.0 [facility] Comment on above: Performed By: #### C BC #### [facility] [address] [place] [address] Dr. Tomasa Ley Urea nitrogen/Creatinine [Mass ratio] 15.8 mg/mg Normal [facility] Comment on above: Performed By: #### C BC #### [facility] [address] [address] [address] Tomasa Ley URINE MICROSCOPIC ONLYon BACTERIA NONE SEEN Normal NONE SEEN [facility] Comment on above: Performed By: #### P RINKU CHERRY ERUR #### [facility] [address] [address] [address] Tomasa Ley Bacteria identified Cx Nom (U) NOT INDICATED Normal [facility] Comment on above: Performed By: #### P RINKU CHERRY, ERUR #### [facility] [address] [address] [address] Tomaas Ley CAST NONE SEEN Normal NONE SEEN [facility] Comment on above: Performed By: #### P REGU, UMICRO, ERUR #### [facility] [address] [address] [address] Tomasa Ley Crystals LM Nom (Urine sed) NONE SEEN Normal NONE SEEN [facility] Comment on above: Performed By: #### P REGU, UMICRO, ERUR #### [facility] [address] [address] [address] Tomasa Ley Epithelial cells LM Ql (Urine sed) MODERATE Abnormal NONE SEEN /RARE [facility] Comment on above: Performed By: #### P REGU, UMICRO, ERUR #### [facility] [address] [address] [address] Tomasa Ley MUCOUS SMALL Abnormal NONE SEEN [facility] Comment on above: Performed By: #### P REGU, UMICRO, ERUR #### [facility] [address] [address] [address] Tomasa Ley RBC 5-10 Abnormal 0-2 [facility] Comment on above: Performed By: #### P REGU, UMICRO, ERUR #### [facility] [address] [address] [address] Tomasa Ley WBC NONE SEEN Normal NONE SEEN [facility] Comment on above: Performed By: #### P REGU, UMICRO, ERUR #### [facility] [address] [address] [address] Tomasa Ley US SINGLE QUAD RT [...] PATTY MATHEW Date: 2021-07-12 09:45 Normal [facility] CBC AUTO DIFFon 12-23-2020 BASO # 0.1 103/ul Normal 0.0-0.1 [facility] Comment on above: Performed By: #### C BC #### [facility] [address] [address] [address] Tomasa Ley Basophils/100 WBC (Bld) 0.7 % Normal 0.2-2.0 [facility] Comment on above: Performed By: #### C BC #### [facility] [address] [place] [address] Dr. Tomasa Ley EO # 0.1 103/ul Normal 0.0-0.7 [facility] Comment on above: Performed By: #### C BC #### [facility] [address] [place] [address] Dr. Tomasa Ley Eosinophils/100 WBC (Bld) 1.6 % Normal 0.9-7.0 [facility] Comment on above: Performed By: #### C BC #### [facility] [address] [place] [address] Dr. Tomasa Ley Erythrocyte distribution width (RBC) [Ratio] 16.4 % Critically high 11.0-15.0 [facility] Comment on above: Performed By: #### C BC #### [facility] [address] [place] [address] Dr. Tomasa Ley Hematocrit (Bld) [Volume fraction] 41.7 % Normal 36.0-48.0 [facility] Comment on above: Performed By: #### C BC #### [facility] [address] [place] [address] Dr. Tomasa Ley Hemoglobin (Bld) [Mass/Vol] 13.1 g/dL Normal 12.0-16.0 [facility] Comment on above: Performed By: #### C BC #### [facility] [address] [place] [address] Dr. Tomasa Lye IG # 0.01 10e3/ul Normal 0.00-0.03 [facility] Comment on above: Performed By: #### C BC #### [facility] [address] [place] [address] Dr. Tomasa Ley IG % 0.1 % Normal 0.0-0.5 [facility] Comment on above: Performed By: #### C BC #### [facility] [address] [place] [address] Dr. Tomasa Ley LYMPH # 1.9 103/ul Normal 1.2-3.8 [facility] Comment on above: Performed By: #### C BC #### [facility] [address] [place] [address] Dr. Tomasa Ley Lymphocytes/100 WBC (Bld) 25.6 % Normal 20.5-60.0 [facility] Comment on above: Performed By: #### C BC #### [facility] [address] [place] [address] Dr. Tomasa Ley MANUAL DIFF REQ NO Normal [facility] Comment on above: Performed By: #### C BC #### [facility] [address] [place] [address] Dr. Tomasa Ley MCH (RBC) [Entitic mass] 25.4 pg Critically low 26.7-34.0 [facility] Comment on above: Performed By: #### C BC #### [facility] [address] [place] [address] Dr. Tomasa Ley MCHC (RBC) [Mass/Vol] 31.4 g/dL Normal 29.9-35.2 [facility] Comment on above: Performed By: #### C BC #### [facility] [address] [place] [address] Dr. Tomasa Ley MCV (RBC) [Entitic vol] 80.8 fL Critically low 81.0-99.0 [facility] Comment on above: Performed By: #### C BC #### [facility] [address] [place] [address] Dr. Tomasa Ley MONO # 0.7 103/ul Normal 0.3-0.8 [facility] Comment on above: Performed By: #### C BC #### [facility] [address] [place] [address] Dr. Tomasa Ley Monocytes/100 WBC (Bld) 10.0 % Normal 1.7-12.0 [facility] Comment on above: Performed By: #### C BC #### [facility] [address] [place] [address] Dr. Tomasa Ley NEUT # 4.6 103/ul Normal 1.4-6.5 [facility] Comment on above: Performed By: #### C BC #### [facility] [address] [place] [address] Dr. Tomasa Ley Neutrophils/100 WBC (Bld) 62.0 % Normal 43.0-75.0 [facility] Comment on above: Performed By: #### C BC #### [facility] [address] [place] [address] Dr. Tomasa Ley Platelet mean volume (Bld) [Entitic vol] 11.5 fL Normal 9.5-13.5 [facility] Comment on above: Performed By: #### C BC #### [facility] [address] [place] [address] Dr. Tomasa Ley PLT 244 103/ul Normal 150-450 [facility] Comment on above: Performed By: #### C BC #### [facility] [address] [place] [address] Dr. Tomasa Ley RBC 5.16 106/ul Normal 4.20-5.40 [facility] Comment on above: Performed By: #### C BC #### [facility] [address] [place] [address] Dr. Tomasa Ley WBC 7.4 103/ul Normal 4.0-11.0 [facility] Comment on above: Performed By: #### C BC #### [facility] [address] [place] [address] Dr. Tomasa Ley CULTURE URINEon 12-23-2020 CULTURE URINE Culture Observations : NO GROWTH. Normal [facility] Comment on above: Performed By: #### C BC #### [facility] [address] [place] [address] Dr. Tomasa Ley PROF 14(COMP METB)on 021 Albumin [Mass/Vol] 3.7 g/dL Normal 3.5-5.0 [facility] Comment on above: Performed By: #### C BC #### [facility] [address] [place] [address] Dr. Tomasa Ley Albumin/Globulin [Mass ratio] 1.0 {ratio} Normal [facility] Comment on above: Performed By: #### C BC #### [facility] [facility] [address] [place] [address] Dr. Tomasa Ley ALP [Catalytic activity/Vol] 83 U/L Normal 38-126 [facility] Comment on above: Performed By: #### C BC #### [facility] [address] [place] [address] Dr. Tomasa Ley ALT [Catalytic activity/Vol] 23 U/L Normal 9-52 [facility] Comment on above: Performed By: #### C BC #### [facility] [address] [place] [address] Dr. Tomasa Ley Anion gap [Moles/Vol] 11.4 mmol/L Normal [facility] Comment on above: Performed By: #### C BC #### [facility] [address] [place] [address] Dr. Tomasa Ley AST [Catalytic activity/Vol] 19 U/L Normal 14-36 [facility] Comment on above: Performed By: #### C BC #### [facility] [address] [place] [address] Dr. Tomasa Ley Bilirubin [Mass/Vol] 0.3 mg/dL Normal 0.2-1.3 [facility] Comment on above: Performed By: #### C BC #### [facility] [address] [place] [address] Dr. Tomasa Ley Calcium [Mass/Vol] 8.4 mg/dL Normal 8.4-10.2 [facility] Comment on above: Performed By: #### C BC #### [facility] [address] [address] [address] Tomasa Ley Chloride [Moles/Vol] 101 mmol/L Normal 98-107 [facility] Comment on above: Performed By: #### C BC #### [facility] [address] [place] [address] Dr. Tomasa Ley CO2 [Moles/Vol] 29.4 mmol/L Normal 22.0-30.0 [facility] Comment on above: Performed By: #### C BC #### [facility] [address] [place] [address] Dr. Tomasa Ley Creatinine [Mass/Vol] 1.03 mg/dL Normal 0.52-1.04 [facility] Comment on above: Performed By: #### C BC #### [facility] [address] [place] [address] Dr. Tomasa Ley EGFR-AF KOSOVAN >60 Normal >=60 [facility] Comment on above: Performed By: #### C BC #### [facility] [address] [place] [place] [address] Dr. Tomasa Ley EGFR-NON AF KOSOVAN >60 Normal >=60 [facility] Comment on above: Performed By: #### C BC #### [facility] [address] [place] [address] Dr. Tomasa Ley Globulin (S) [Mass/Vol] 3.6 g/dL Normal [facility] Comment on above: Performed By: #### C BC #### [facility] [address] [place] [address] Dr. Tomasa Ley Glucose [Mass/Vol] 85 mg/dL Normal 74-106 [facility] Comment on above: Performed By: #### C BC #### [facility] [address] [place] [address] Dr. Tomasa Ley Potassium [Moles/Vol] 3.8 mmol/L Normal 3.4-5.0 [facility] Comment on above: Performed By: #### C BC #### [facility] [address] [place] [address] Dr. Tomasa Ley Protein [Mass/Vol] 7.3 g/dL Normal 6.1-8.2 [facility] Comment on above: Performed By: #### C BC #### [facility] [address] [place] [address] Dr. Tomasa Ley Sodium [Moles/Vol] 138 mmol/L Normal 137-145 [facility] Comment on above: Performed By: #### C BC #### [facility] [address] [place] [place] [address] Dr. Tomasa Ley Urea nitrogen [Mass/Vol] 9.0 mg/dL Normal 7.0-17.0 [facility] Comment on above: Performed By: #### C BC #### [facility] [address] [place] [address] Dr. Tomasa Ley Urea nitrogen/Creatinine [Mass ratio] 8.7 mg/mg Normal [facility] Comment on above: Performed By: #### C BC #### [facility] [address] [place] [address] Dr. Tomasa Ley UA RANDOMon 12-23-2020 Bilirubin Ql (U) Negative Normal NEGATIVE [facility] Comment on above: Performed By: #### U A #### [facility] [address] [place] [address] Cedrick Kathleen Clarity (U) CLEAR Normal CLEAR [facility] Comment on above: Performed By: #### U A #### [facility] [address] [place] [address] Cedrick Kathleen Color (U) LT. YELLOW Normal YELLOW [facility] Comment on above: Performed By: #### U A #### [facility] [address] [place] [address] Cedrick Kathleen Glucose Ql (U) Negative Normal NEGATIVE [facility] Comment on above: Performed By: #### U A #### [facility] [address] [place] [address] Cedrick Kathleen Hemoglobin Ql (U) Negative Normal NEGATIVE [facility] Comment on above: Performed By: #### U A #### [facility] [address] [address] Cedrick Kathleen Ketones Ql (U) Negative Normal NEGATIVE [facility] Comment on above: Performed By: #### U A #### [facility] [address] [place], [place] [id number] Cedrick Kathleen LEUKOCYTES Negative Normal NEGATIVE [facility] Comment on above: Performed By: #### U A #### [facility] [address] [place], [place] [address] Cedrick Kathleen Nitrite Ql (U) Negative Normal NEGATIVE [facility] Comment on above: Performed By: #### U A #### [facility] [address] [place], [place] [address] Cedrick Kathleen pH (U) 5.5 [pH] Normal 5-9 [facility] Comment on above: Performed By: #### U A #### [facility] [address] [place] [place] [address] Cedrick Wang SPEC GRAVITY <=1.005 Abnormal 1.005-<=1.025 [facility] Comment on above: Performed By: #### U A #### [facility] [address] [place], [place] [address] Cedrick Kathleen UA PROTEIN Negative Normal NEGATIVE/ TRACE [facility] Comment on above: Performed By: #### U A #### [facility] [address] [place], [place] [address] Cedrick Wang Urobilinogen Qn (U) 0.2 {Sly'U}/dL Normal 0.2 - 1. 0 [facility] Comment on above: Performed By: #### U A #### [facility] [address] [place], [place] [address] Cedrick Kathleen US KIDNEYS BLADDERon 021 US [...] renal cyst No hydronephrosis Electronically authenticated by: JABIRE ALSTON Date: 2020-12-23 15:06 Normal [facility] Vital Signs Date Time Vital Sign Value Performing Clinician Facility 05-04-2024 08:03-0500 Body mass index (BMI) [Ratio] 34.11 kg/m2 Sabrina Head VIDEO GAME SCRIPT WRITER Work Phone: [facility] 05-04-2024 08:03-0500 Body weight 92.99 kg Sabrina Head VIDEO GAME SCRIPT WRITER Work Phone: [facility] 05-04-2024 08:03-0500 Diastolic blood pressure 74 mm[Hg] Sabrina Head VIDEO GAME SCRIPT WRITER Work Phone: [facility] 05-04-2024 08:03-0500 Heart rate 53 /min Sabrina Head VIDEO GAME SCRIPT WRITER Work Phone: [facility] 05-04-2024 08:03-0500 Systolic blood pressure 110 mm[Hg] Sabrina Head VIDEO GAME SCRIPT WRITER Work Phone: [facility] 02-09-2023 13:45-0400 Body height 158.12 cm Elin Bryan Other [facility] Other 02-09-2023 13:45-0400 Body mass index (BMI) [Ratio] 37.19 kg/m2 Elin Bryan Other [facility] Other 02-09-2023 13:45-0400 Body temperature 98.1 [degF] Elin Bryan Other [facility] Other 02-09-2023 13:45-0400 Body weight 92.99 kg Elin Bryan Other [facility] Other 02-09-2023 13:45-0400 Respiratory rate 18 /min Elin Bryan Other [facility] Other 02-09-2023 13:45-0400 SaO2% (BldA) [Mass fraction] 98 % Elin Randi Other [facility] Other Encounters Encounter Date Encounter Type Care Provider Facility Start: 05-18-2024 End: 05-18-2024 Telephone encounter Sabrina Head VIDEO GAME SCRIPT WRITER Work Phone: [facility] Comment on above: Advice Only Start: 05-10-2024 End: 05-10-2024 Telephone encounter Lori Blackwell EXPERIENCE PLANNING STRATEGIST [facility] Comment on above: Medication Problem Start: 05-04-2024 End: 05-04-2024 Bamboo flowsheet Sabrina Head VIDEO GAME SCRIPT WRITER Work Phone: [facility] Start: 05-04-2024 End: 05-04-2024 Bamboo flowsheet Sabrina Head VIDEO GAME SCRIPT WRITER Work Phone: [facility] Start: 05-04-2024 End: 05-04-2024 Office outpatient new 60 minutes Sabrina Head VIDEO GAME SCRIPT WRITER Work Phone: [facility] Comment on above: [...] encounter procedure MD Lydia San Work Phone: [facility] Work Phone: Start: 02-09-2023 End: 10-08-2023 ambulatory MD Lydia San Work Phone: [facility] [place] Other Start: 02-09-2023 Office outpatient visit 15 minutes Elin Bryan [facility] Start: 09-10-2022 ambulatory Rob Tejada acility:[facility] Start: 12-08-2021 End: 12-08-[address] [...] ice Visit [facility] [address] [facility] [address] [place] [address] Sabrina Head NP [address] [facility] [address] [place] [address] [facility] Start: 06-09-2024 End: 06-09-2024 Patient encounter procedure 06/09/2024 9:30 AM EST Off ice Visit [facility] [address] [facility] [address] [place] [address] Sabrina Head, CONY [address] [facility] [address] [place] [address] [facility] Start: 05-04-2024 End: 05-04-2024 Patient encounter procedure 05/04/2024 8:00 AM EST Off ice Visit [facility] [address] [facility] [address] [place] [address] Sabrina Head NP [address] [facility] [address] [place] [address] Arrived [facility] Comment on above: Arrived Immunizations Immunization Date Immunization Notes Care Provider Fa cility 07-11-2018 tetanus toxoid, reduced diphtheria toxoid, and acellular pertussis vaccine, adsorbed MD Lydia San Work Phone: [facility] 04-10-2011 human papilloma viru s vaccine, quadrivalent Elin Bryan Other [facility] Other Payers Date Payer Category Payer Self-pay [id number] 2021 [facility] [id number] 1992 Unknown [id number]. 593 1992 Unknown [id number] 06.20.840.1.747553.3.579.2. 593 1992 Unknown [id number] 2.16.840.1.552789.3.579.2. 593 1992 Unknown [id number] 2.16.840.1.968760.3.579.2. 593 1992 Unknown [id number] 2.16.840.1.564866.3.579.2. 593 1992 Unknown [id number] 2.16.840.1.347153.3.579.2. 593 1992 Unknown [id number] 2.16.840.1.910414.3.579.2. 1259 1992 Unknown [id number] 2.16.840.1.762768.3.579.2. 1259 1992 Unknown [id number] 2.16.840.1.456801.3.579.2. 1259 1992 Unknown [id number] 2.16.840.1.041764.3.579.2. 1259 1992 Unknown [id number] 2.16.840.1.244318.3.579.2. 1259 1959 Private Health Insurance [id number] 1959 Private Health Insurance [id number] 1959 Unknown [id number] 1959 Unknown [id number] Medicaid Medicaid [id number] Private Health Insurance [facility] [id number] Unknown MMO [id number] Unknown [id number] 2.16.840.1.776325.3.579.2. 531 Unknown [id number] 2.16840.1.871739.3.579.2. 531 Social History Date Type Detail Facility Unknown if ever smoked [facility] Other Start: 09-15-2023 End: 05-04-2024 Sex Assigned At [facility] [place] Other Start: 07-20-2021 End: 09-15-2023 Tobacco smoking status NHIS Never smoked tobacco (finding) [facility] Start: 1990 Sex Assigned At Female [facility] Start: 09-15-2023 Tobacco use and exposure Smokeless [...] to give her medication time to work. [facility] 05-18-2024 Miscellaneous Notes Formattin g of [...] scheduled for 06/09/24. documented in this encounter [facility] 05-18-2024 Telephone encount er Note Patient [...] has a follow up scheduled for 06/09/24. [facility] 05-10-2024 Telephone encount er Note Order for Remeron sent. [facility] 05-10-2024 Miscellaneous Notes Formattin g of [...] to appt. Would like remeron sent to [facility] Patients Kahlil came in office for another [...] from his appt. documented in this encounter [facility] 05-10-2024 Telephone encount er Note Contacted [...] to appt. Would like remeron sent to [facility] 05-10-2024 Telephone encount er Note Patients [...] on his way out from his appt. [facility] 05-04-2024 History of Presen t illness Narrative Images from the original note were not included. Lindsay Montilla is a 33 y.o. 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 Patient was referred by [facility]. Rosemarie, who is her correctional case manager from [facility], is here today for additional support. HPI: Reason for visit: Lindsay Montilla has been experiencing problems with depression and anxiety for many years. She is here to discuss possible medication options to help her symptoms. Developmental History/Childhood: Raised primarily by bio mom between the [facility]. Patient reports being diagnosed with Wilm's tumor [...] of Behcet's syndrome and had seen an mine laborer in [place] previously. She states she has not seen [...] was with for 6 years. Education: Attended [employer] and obtained her high school diploma. Also attended some courses at [employer]. Legal history: Denies Family history of mental [...] current , Kahlil, for 10 years. 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 Children: 1 daughter (6 years old) Living situation: Lives in home with and their daughter. They have 3 dogs, a bird and a snake. Occupation: Unemployed for the past 5 years. 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 Patient was seen Face to Face, Total time spent with patient was 60 minutes, which includes reviewing chart documents, previous notes/records, counseling and discussion with patient and/or coordination of care as described above. documented in this encounter [facility] 02-09-2023 Evaluation note Encounter Date Diagnosis [...] middle finger, initial encounter (ICD-10 - S69.92XA) [facility] Other 08-01-2023 History general Narrative - Reported* Type Description Date Medical History autoimmune disorder Medical History hyperprolactinemia Medical History Wilms tumor, [place] Surgical History Removal of left kidney 1998 Surgical History GALL BLADDER 12/2022 Hospitalization History Removal of left kidney 1 999 Hospitalization History GALL BLADDER Hospitalization History 1 CHILD [facility] Other Evaluation noteNo assessment information available [facility] Work Phone: Evaluation note* Diagnosis Mild episode [...] section and content) DATE CREATED AUTHOR 07/14/2021 [employer] [facility] DATE CREATED AUTHOR AUTHOR'S ORGANIZ ATION 12/10/2021 [facility] DATE CREATED AUTHOR AUTHOR'S ORGANIZ ATION 02/14/2023 [facility] DATE CREATED AUTHOR AUTHOR'S ORGANIZ ATION 05/05/2024 [facility] EPIC REASON FOR VISIT (unrecogniz ed section and content) Reason Comments Psychiatric Evaluation NEDA referral Specialty Diagnoses / Procedures Referred By Contac t Referred To Contact Behavioral Health Diagnoses Insomnia, unspecified Procedures IN UNLISTED EVALUATION AND MANAGEMENT Lydia San MD [address] [place] [address] Phone: tel: fax: Sabrina Head NP [address] [address] Phone: tel: fax: Referral ID Status Reason Start Date Expiration Date Visits Re quested Visits Authorized [id number] Closed 04/19/2024 10/16/2024 1 1 Reason Onset Date Comments Medication Problem 05/10/2024 Reason Onset Date Comments Advice Only 05/18/2024 Care Teams (unrecognized sec tion and content) Team Status: Active Member Role Status Dates Lydia San MD Primary Care Provider Active Team Status: Inactive Member Role Status Dates Lydia San MD Primary Care Provider Active Elin Bryan APRN Attending Provider Active Chief Clerk Relationship Specialty Start Date End Date Lydia San MD [address] [place] [address] PCP - General Family Medicine 09/15/23 Chief Clerk Relationship Specialty Start Date End Date Lydia San MD [address] [place] [address] PCP - General Family Medicine 09/15/23 Sabrina Head NP [address] [id number] Nurse Practitioner Behavioral Health 05/04/24 Chief Clerk Relationship Specialty Start Date End Date Lydia San MD [address] [place] [address] PCP - General Family Medicine 09/15/23 Sabrina Head NP 112 [facility] [address] [place] [address] Nurse Practitioner Behavioral Health 05/04/24 Chief Clerk Relationship Specialty Start Date End Date Lydia San MD [address] [place] [address] PCP - General Family Medicine 09/15/23 Sabrina Head NP [address] [address] Nurse Practitioner Behavioral Health 05/04/24 Goals (unrecognized [...] BE BASED ON THE PRIMARY CLINICAL RECORDS. [employer] provides no warranty or guarantee of the accuracy or completeness of information in this document.
[2024-05-26 08:54] LABS: Basophils Absolute Auto 0.1 10^3/uL (0.0-0.1); Basophils Percent Auto 0.7 % (0.2-2.0); Eosinophils Absolute Auto 0.1 10^3/uL (0.0-0.7); Eosinophils Percent Auto 1.2 % (0.9-7.0); Hemoglobin 13.4 g/dL (12.0-16.0); Immature Granulocytes Abs Auto 0.01 10^3/uL (0.00-0.03); Immature Granulocytes Pct Auto 0.1 % (0.0-0.5); Lymphocytes Absolute Auto 2.1 10^3/uL (1.2-3.8); Lymphocytes Percent Auto 28.4 % (20.5-60.0); Mean Corpuscular HGB Conc 33.5 g/dL (29.9-35.2); Mean Corpuscular Hemoglobin 27.3 pg (26.7-34.0); Mean Corpuscular Volume 81.6 fL (81.0-99.0); Mean Platelet Volume 10.8 fL (9.5-13.5); Monocytes Absolute Auto 0.7 10^3/uL (0.3-0.8); Monocytes Percent Auto 8.8 % (1.7-12.0); Neutrophils Absolute Auto 4.5 10^3/uL (1.4-6.5); Neutrophils Percent Auto 60.8 % (43.0-75.0); Platelet Count 244 10^3/uL (150-450); Red Cell Distribution Width 14.9 % (11.0-15.0); White Blood Count 7.4 10^3/uL (4.0-11.0)
[2024-05-26 09:42] LABS: Alanine Aminotransferase 28 U/L (14-59); Albumin Globulin Ratio 0.9; Albumin Level 3.3 g/dL (3.4-5.0); Alkaline Phosphatase 94 U/L (46-116); Anion Gap 11.1; Aspartate Amino Transferase 17 U/L (15-37); BUN Creatinine Ratio 6.5; Bilirubin Total 0.3 mg/dL (0.2-1.0); Calcium 8.6 mg/dL (8.5-10.1); Carbon Dioxide 28.6 mmol/L (21.0-32.0); Chloride 106 mmol/L (98-107); Estimated GFR (African America >60 (>=60 mL/min/1.73m^2); Estimated GFR (Non-African Ame 50 (>=60 mL/min/1.73m^2); Free T3 2.33 pg/mL (2.18-3.98); Globulin 3.8 g/dL; Glucose 92 mg/dL (74-106); Potassium 3.7 mmol/L (3.5-5.1); Sodium 142 mmol/L (136-145); Thyroid Stimulating Hormone 4.183 uIU/mL (0.358-3.740); Total Protein 7.1 g/dL (6.4-8.2)
== END 2024-05-26 08:31 | disposition home or self-care (01) ==
LOC: LAB 08:31
PROVIDERS: PCP Family Medicine; Visit Provider Family Medicine
DX: R07.9 Chest pain, unspecified (principal); M79.606 Pain in leg, unspecified; D64.9 Anemia, unspecified; I50.30 Unspecified diastolic (congestive) heart failure; I11.0 Hypertensive heart disease with heart failure
CPT/HCPCS: 36415; 80053; 83540; 83880; 84436; 84443; 84481; 85025

== ENCOUNTER 2024-06-02 08:06 | Outpatient (OUT) | payer BC, SELFPAY ==
--- OUTSIDE RECORDS SUMMARY | 2024-06-02 08:09 | XMS_ITS | CCD ---
Author Organization [facility] CliniSyny Care Team Providers Care Gold Stamper Name Role Phone SAMEER, DR FREEMAN Admitting [...] Consulting Unavailable KIMVINAY Consulting Unavailable HOY, DR FREEAMN Admitting Unavailable HOY, DR FREEMAN Attending Unavailable ABELARDOY, DR FREEMAN Primary Care Unavailable HOPlacido, DR FREEMAN Consulting Unavailable ZIEBALEKSEY, DR PATTY Vu Consulting Unavailable Elin Bryan Unavailable MD Lydia San Primary Care Provider [phone] TETE Bryan Attending Provider [phone] Lydia San Primary Care Unavailable Elin Bryan Admitting Unavailable Elin Bryan Attending Unavailable Rob Coello Admitting Unavailab Rob Broderick Attending Unavailab le Lydia San Primary Care Unavailable Lydia San MD Primary Care Provider [phone] FER ROMAN Attending Unavailable ROMAN, PENOLA P Referring Unavailable FER ROMAN Referring Unavailable FER ROMAN Attending Unavailable FER ROMAN Attending Unavailable FER ROMAN Referring Unavailable SABRINA HEAD Attending Unavailable LYDIA SAN Referring Unavailable Sabrina Head NP Unavailable Allergies Allergy Classification Reported Allergen(s) Allergy Type Date of Onset Reaction(s) Facility (1 source) HYDROcodone Drug Allergy [facility] Repository (5 sources) buPROPion Drug Allergy 4 Other [facility] Healthcare (5 sources) Escitalopram Drug Allergy 4 Other [facility] Healthcare (5 sources) Wound Dressing Adhesive Drug Intolerance 3 [facility] Healthcare Medications Current Medications Medication Drug [...] Discontinued (Side effects) 21 day ethinyl estradiol 0.054905 mg/hr / etonogestrel 0.005 mg/hr vaginal system [...] tablet 1 05/10/2024 05/18/2024 Discontinued (Side effects) [place] (No Known Home Meds) (1 source) Start: 07-20-2021 [place] (No Known Home Meds) Active July 20, [...] Drug Class(es) Dates Sig (Normalized) Sig (Original) [id number] 200 actuat albuterol 0.09 mg/actuat metered dose [...] 2018 1:00am July 20, 2021 4:10pm Vit 35-Vsjx-Civdn-Dha ( + Dha) 28 mg iron- 975 mcg-200 mg Combo Pack (1 source) Start: 06-18-2018 End: 07-20-2021 Vit 06-Otbv-Wgjzu-Dha ( + Dha) 28 mg iron- 975 [...] 3V*on 023 XR hand LT min 3V* [facility] [place] [address] XRay Report Signed Patient: Lindsay Montilla MR#: [id number] 0 : 1990 Acct:[id number] Age/Sex: 32 / F ADM Date: 02/09/23 Loc: XDUC Room: Type: [facility] Attending Dr: Elin Bryan APRN Copies [...] Kathleen Cheng M.D.02/09/2023 3:30 PM Dictation Location: [place] [address] Transcribed By: [facility] 02/09/23 1530 Dictated By: Kathleen Cheng MD 02/09/23 1529 Signed By: 02/09/23 153 Normal [facility] XR hand LT min 3V* [facility] [employer] Other XR hand LT min 3V* [facility] [place] [place] [facility] [employer] Other XR hand LT min 3V* [facility] [employer] Other XR hand LT min 3V* JOSE Velazquez [address] [place] [facility] Other XR hand LT min 3V* XRay Report [employer] Other XR hand LT min 3V* Signed [employer] Other XR hand LT min 3V* Patient: Lindsay Montilla MR#: [id number] [facility] Other XR hand LT min 3V* 0 [employer] Other XR hand LT min 3V* : 1990 Acct:[id number] [employer] Other XR hand LT min 3V* Age/Sex: 32 / F ADM Date: 02/09/23 [employer] Other XR hand LT min 3V* Loc: XDUCLY Room: Type: [facility] [employer] Other XR hand LT min 3V* Attending Dr: Elin Bryan CABIN SERVICE AGENT [employer] Other XR hand LT min 3V* Copies to: Elin Bryan [employer]IN SERVICE AGENT [employer] Other XR hand LT min 3V* Ordering Provider: Elin Bryan APRN [employer] Other XR hand LT min 3V* Date of Service: 02/09/23 [employer] Other XR hand LT min 3V* XR/XR hand LT min 3V*: LEFT HAND INJURY [employer] Other XR hand LT min 3V* LEFT HAND - 3 views [employer] Other XR hand LT min 3V* CLINICAL DATA: Crush injury of the left fingers this morning. Pain and swelling at the third and [employer] Other XR hand LT min 3V* fourth digits. No rt [employer] Other XR hand LT min 3V* COMPARISON: None [employer] Other XR hand LT min 3V* AP, lateral and oblique views were obtained. There is no evidence of fracture or dislocation. [employer] Other XR hand LT min 3V* There are no significant soft tissue abnormalities. [employer] Other XR hand LT min 3V* XR/XR hand LT min 3V* [employer] Other XR hand LT min 3V* IMPRESSION: [employer] Other XR hand LT min 3V* NO ACUTE BONY INJURY. [employer] Other XR hand LT min 3V* Impression dictated by: Kathleen Cheng M.D.02/09/2023 3:30 PM [employer] Other XR hand LT min 3V* Dictation Location: [place] [address] [employer] Other XR hand LT min 3V* Transcribed By: MARLA 02/09/23 1530 [employer] Other XR hand LT min 3V* Dictated By: Kathleen Cheng MD 02/09/23 1529 [employer] Other XR hand LT min 3V* Signed By: [employer] Other XR hand LT min 3V* 02/09/23 1530 Nor [employer] Other GI PANEL (PCR)on 12-08-2021 Adenovirus F 40/41 Not detected Normal NOT DETECTED [facility] Comment on above: Performed By: #### G IPANEL #### [facility] [address] [place] [address] [address] Tomasa Ley Astrovirus Not detected Normal NOT DETECTED [facility] Comment on above: Performed By: #### G IPANEL #### [facility] [address] [place] [address] Dr. Tomasa Ley C. Diff toxin A/B Not detected Normal NOT DETECTED [facility] Comment on above: Performed By: #### G IPANEL #### [facility] [address] [address] [address] Tomasa Ley Campylobacter Not detected Normal NOT DETECTED [facility] Comment on above: Performed By: #### G IPANEL #### [facility] [address] [place] [address] Dr. Tomasa Ley Cryptosporidium Not detected Normal NOT DETECTED [facility] Comment on above: Performed By: #### G IPANEL #### [facility] [address] [place] [address] Dr. Tomasa Ley Cyclos. Cayetanensis Not detected Normal NOT DETECTED [facility] Comment on above: Performed By: #### G IPANEL #### [facility] [address] [place] [address] Dr. Tomasa Ley E. Coli O157 Not Applicable Normal Not Applicable [facility] Comment on above: Performed By: #### G IPANEL #### [facility] [address] [place] [address] Dr. Tomasa Ley E. histolytica Not detected Normal NOT DETECTED [facility] Comment on above: Performed By: #### G IPANEL #### [facility] [address] [place] [address] Dr. Tomasa Ley EAEC Not detected Normal NOT DETECTED [facility] Comment on above: Performed By: #### G IPANEL #### [facility] [address] [place] [address] Dr. Tomasa Ley EIEC Not detected Normal NOT DETECTED [facility] Comment on above: Performed By: #### G IPANEL #### [facility] [address] [address] [address] Tomasa Ley EPEC Not detected Normal NOT DETECTED [facility] Comment on above: Performed By: #### G IPANEL #### [facility] [address] [address] [address] Tomasa Ley ETEC Not detected Normal NOT DETECTED [facility] Comment on above: Performed By: #### G IPANEL #### [facility] [address] [address] [address] Tomasa Zuñiga Lamblia Not detected Normal NOT DETECTED [facility] Comment on above: Performed By: #### G IPANEL #### [facility] [address] [address] [address] Tomasa LOO CONTROLS PASSED Normal [facility] Comment on above: Performed By: #### G IPANEL #### [facility] [address] [place] [address] Dr. Tomasa SNYDER HEADER GI PANEL BACTERIA Normal [facility] Comment on above: Performed By: #### G IPANEL #### [facility] [address] [address] [address] Tomasa RUCKER ECOLI GI PANEL DIARRHEAGENIC E.COLI / SHIGELLA Normal [facility] Comment on above: Performed By: #### G IPANEL #### [facility] [address] [place] [address] Dr. Tomasa RUCKER INFO SEE BELOW Normal [facility] Comment on above: Result Comment: EAEC - Enteroaggregative E. Coli EPEC- Enteropathogenic E. Coli ETEC- Enterotoxigenic E. Coli lt/st STEC- Shigella-like toxin-producing E. Coli stx1/stx2 EIEC- Shigella/Enteroinvasive E. Coli Performed By: #### G IPANEL #### [facility] [address] [place] [address] Dr. Tomasa RUCKER PARASITES GI PANEL PARASITES Normal [facility] Comment on above: Performed By: #### G IPANEL #### [facility] [address] [address] [address] Tomasa Ley [facility] VIRUS GI PANEL VIRUSES Normal [facility] Comment on above: Performed By: #### G IPANEL #### [facility] [address] [place] [address] Dr. Tomasa Ley Norovirus GI/GII Not detected Normal NOT DETECTED [facility] Comment on above: Performed By: #### G IPANEL #### [facility] [address] [place] [address] Dr. Tomasa Ley P. Shigelloides Not detected Normal NOT DETECTED [facility] Comment on above: Performed By: #### G IPANEL #### [facility] [address] [place] [address] Dr. Tomasa Ley Rotavirus A Not detected Normal NOT DETECTED [facility] Comment on above: Performed By: #### G IPANEL #### [facility] [address] [place] [address] Dr. Tomasa Ley Salmonella Not detected Normal NOT DETECTED [facility] Comment on above: Performed By: #### G IPANEL #### [facility] [address] [place] [address] Dr. Tomasa Ley Sapovirus Not detected Normal NOT DETECTED [facility] Comment on above: Performed By: #### G IPANEL #### [facility] [address] [place] [address] Dr. Tomasa Ley STEC Not detected Normal NOT DETECTED [facility] Comment on above: Performed By: #### G IPANEL #### [facility] [address] [place] [address] Dr. Tomasa Ley Vibrio Not detected Normal NOT DETECTED [facility] Comment on above: Performed By: #### G IPANEL #### [facility] [address] [place] [address] Dr. Tmoasa Ley Vibrio Cholera Not detected Normal NOT DETECTED [facility] Comment on above: Performed By: #### G IPANEL #### [facility] [address] [place] [address] Dr. Tomasa Ley Y. Enterocolitica Not detected Normal NOT DETECTED [facility] Comment on above: Performed By: #### G IPANEL #### [facility] [address] [place] [address] Dr. Tomasa Ley US PELVIS AND TRANSVAGon [...] VINAY BURROUGHS Date: 2021-11-12 19:[address] [facility] AMYLASEon 10-28-2021 Amylase [Catalytic activity/Vol] 36 U/L Normal 25-[address] [facility] Comment on above: Performed By: #### C BC #### [facility] [address] [place] [address] Dr. Tomasa Ley CBC AUTO DIFFon 10-28-2021 BASO # 0.0 103/ul Normal 0.0-0.1 [facility] Comment on above: Performed By: #### C BC #### [facility] [address] [place] [address] Dr. Tomasa Ley Basophils/100 WBC (Bld) 0.4 % Normal 0.2-2.[address] [facility] Comment on above: Performed By: #### C BC #### [facility] [address] [place] [address] Dr. Tomasa Ley EO # 0.1 103/ul Normal 0.0-0.[address] [facility] Comment on above: Performed By: #### C BC #### [facility] [address] [place] [address] Dr. Tomasa Ley Eosinophils/100 WBC (Bld) 0.6 % Critically low 0.9-7.0 [facility] Comment on above: Performed By: #### C BC #### [facility] [address] [place] [address] Dr. Tomasa Ley Erythrocyte distribution width (RBC) [Ratio] 15.2 % Critically high 11.0-15.0 [facility] Comment on above: Performed By: #### C BC #### [facility] [address] [place] [address] Dr. Tomasa Ley Hematocrit (Bld) [Volume fraction] 45.1 % Normal 36.0-48.0 [facility] Comment on above: Performed By: #### C BC #### [facility] [address] [place] [address] Dr. Tomasa Ley Hemoglobin (Bld) [Mass/Vol] 14.2 g/dL Normal 12.0-16.0 [facility] Comment on above: Performed By: #### C BC #### [facility] [address] [place] [address] Dr. Tomasa Ley IG # 0.02 10e3/ul Normal 0.00-0.03 [facility] Comment on above: Performed By: #### C BC #### [facility] [address] [place] [address] Dr. Tomasa Ley IG % 0.3 % Normal 0.0-0.5 [facility] Comment on above: Performed By: #### C BC #### [facility] [address] [place] [address] Dr. Tomasa Ley LYMPH # 1.6 103/ul Normal 1.2-3.[address] [facility] Comment on above: Performed By: #### C BC #### [facility] [address] [place] [address] Dr. Tomasa Ley Lymphocytes/100 WBC (Bld) 19.6 % Critically low 20.5-60.0 [facility] Comment on above: Performed By: #### C BC #### [facility] [address] [place] [address] Dr. Tomasa Ley MANUAL DIFF REQ NO Normal [facility] Comment on above: Performed By: #### C BC #### [facility] [address] [address] [address] Tomasa Ley MCH (RBC) [Entitic mass] 25.9 pg Critically low 26.7-34.[address] [facility] Comment on above: Performed By: #### C BC #### [facility] [address] [place] [address] Dr. Tomasa Ley MCHC (RBC) [Mass/Vol] 31.5 g/dL Normal 29.9-35.[address] [facility] Comment on above: Performed By: #### C BC #### [facility] [address] [place] [address] Dr. Tomasa Ley MCV (RBC) [Entitic vol] 82.1 fL Normal 81.0-99.[address] [facility] Comment on above: Performed By: #### C BC #### [facility] [address] [place] [address] Dr. Tomasa Ley MONO # 0.6 103/ul Normal 0.3-0.[address] [facility] Comment on above: Performed By: #### C BC #### [facility] [address] [place] [address] Dr. Tomasa Ley Monocytes/100 WBC (Bld) 7.5 % Normal 1.7-12.[address] [facility] Comment on above: Performed By: #### C BC #### [facility] [address] [place] [address] Dr. Tomasa Ley NEUT # 5.7 103/ul Normal 1.4-6.[address] [facility] Comment on above: Performed By: #### C BC #### [facility] [address] [place] [address] Dr. Tomasa Ley Neutrophils/100 WBC (Bld) 71.6 % Normal 43.0-75.[address] [facility] Comment on above: Performed By: #### C BC #### [facility] [address] [place] [address] Dr. Tomasa Ley Platelet mean volume (Bld) [Entitic vol] 11.3 fL Normal 9.5-13.[address] [facility] Comment on above: Performed By: #### C BC #### [facility] [address] [place], [place] [address] Dr. Tomasa Ley PLT 246 103/ul Normal 150-[address] [facility] Comment on above: Performed By: #### C BC #### [facility] [address] [place], [place] [address] Dr[address] Tomasa Ley RBC 5.49 106/ul Critically high 4.20-5.40 [facility] Comment on above: Performed By: #### C BC #### [facility] [address] [place], [place] [address] Dr. Tomasa Ley WBC 8.0 103/ul Normal 4.0-11.0 [facility] Comment on above: Performed By: #### C BC #### [facility] [address] [place], [place] [address] ABD/PELVIS WO CONon [...] VINAY ALVAREZ Date: 2021-10-28 10:[address] [facility] CULTURE URINEon 10-28-2021 CULTURE URINE Culture Observations : NO GROWTH. Normal [facility] Comment on above: Performed By: #### P RINKU CHERRY, ERUR #### [facility] [address] [address] [address] Tomasa Ley ER URINE PROFILEon 2 Bilirubin Ql (U) Negative Normal NEGATIVE [facility] Comment on above: Performed By: #### U MICRO, ERUR #### [facility] [address] [address] [address] Tomasa Ley Clarity (U) CLEAR Normal CLEAR [facility] Comment on above: Performed By: #### U MICRO, ERUR #### [facility] [address] [address] [address] Tomasa Ley Color (U) LT. YELLOW Normal YELLOW [facility] Comment on above: Performed By: #### U MICRO, ERUR #### [facility] [address] [address] [address] Tomasa ESTEBAN A micrscopic examination will be performed if indicated. Normal [facility] Comment on above: Performed By: #### U MICRO, ERUR #### [facility] [address] [address] [address] Tomasa Ley Glucose Ql (U) Negative Normal NEGATIVE [facility] Comment on above: Performed By: #### U MICRO, ERUR #### [facility] [address] [address] [address] Tomasa Ley Hemoglobin Ql (U) Negative Normal NEGATIVE [facility] Comment on above: Performed By: #### U MICRO, ERUR #### [facility] [address] [address] [address] Tomasa Ley Ketones Ql (U) Negative Normal NEGATIVE [facility] Comment on above: Performed By: #### U MICRO, ERUR #### [facility] [address] [place] [address] Dr. Tomasa Ley LEUKOCYTES SMALL Abnormal NEGATIVE [facility] Comment on above: Performed By: #### U MICRO, ERUR #### [facility] [address] [address] [address] Tomasa Ley Nitrite Ql (U) Negative Normal NEGATIVE [facility] Comment on above: Performed By: #### U MICRO, ERUR #### [facility] [address] [address] [address] Tomasa Ley pH (U) 5.5 [pH] Normal 5-[address] [facility] Comment on above: Performed By: #### U MICRO, ERUR #### [facility] [address] [address] [address] Tomasa Ley SPEC GRAVITY 1.020 Normal 1.005-<=1.025 [facility] Comment on above: Performed By: #### U MICRO, ERUR #### [facility] [address] [address] [address] Tomasa Ley UA PROTEIN Negative Normal NEGATIVE/ TRACE [facility] Comment on above: Performed By: #### U MICRO, ERUR #### [facility] [address] [place] [address] Dr. Tomasa Ley UR MICRO IND INDICATED Normal [facility] Comment on above: Performed By: #### U MICRO, ERUR #### [facility] [address] [place] [address] Dr. Tomasa Ley Urobilinogen Qn (U) 0.2 {Sly'U}/dL Normal 0.2 - 1. 0 [facility] Comment on above: Performed By: #### U MICRO, ERUR #### [facility] [address] [place] [address] Dr. Tomasa Ley LIPASEon 10-28-2021 Lipase [Catalytic activity/Vol] 142.0 U/L Normal 73.0-393.0 [facility] Comment on above: Performed By: #### C BC #### [facility] [address] [place] [address] Dr. Tomasa Ley PROF 14(COMP METB)on 022 Albumin [Mass/Vol] 3.9 g/dL Normal 3.4-5.0 [facility] [place] Comment on above: Performed By: #### C BC #### [facility] [address] [place] [address] Dr. Tomasa Ley Albumin/Globulin [Mass ratio] 1.0 {ratio} Normal [facility] Comment on above: Performed By: #### C BC #### [facility] [address] [place] [address] Dr. Tomasa Ley ALP [Catalytic activity/Vol] 107 U/L Normal 46-[address] [facility] Comment on above: Performed By: #### C BC #### [facility] [address] [place] [address] Dr. Tomasa Ley ALT [Catalytic activity/Vol] 24 U/L Normal 14-[address] [facility] Comment on above: Performed By: #### C BC #### [facility] [address] [place] [address] Dr. Tomasa Ley Anion gap [Moles/Vol] 13.4 mmol/L Normal [facility] Comment on above: Performed By: #### C BC #### [facility] [address] [place] [address] Dr. Tomasa Ley AST [Catalytic activity/Vol] 18 U/L Normal 15-37 [facility] Comment on above: Performed By: #### C BC #### [facility] [address] [place] [address] Dr. Tomasa Ley Bilirubin [Mass/Vol] 0.2 mg/dL Normal 0.2-1.0 [facility] Comment on above: Performed By: #### C BC #### [facility] [address] [place] [address] Dr. Tomasa Ley Calcium [Mass/Vol] 8.8 mg/dL Normal 8.5-10.1 [facility] [place] Comment on above: Performed By: #### C BC #### [facility] [address] [place] [address] Dr. Tomasa Ley Chloride [Moles/Vol] 103 mmol/L Normal 98-107 [facility] Comment on above: Performed By: #### C BC #### [facility] [address] [place] [address] Dr. Tomasa Ley CO2 [Moles/Vol] 27.6 mmol/L Normal 21.0-32.0 [facility] Comment on above: Performed By: #### C BC #### [facility] [address] [place] [address] Dr. Tomasa Ley Creatinine [Mass/Vol] 1.07 mg/dL Critically high 0.55-1.02 [facility] Comment on above: Performed By: #### C BC #### [facility] [address] [place] [address] Dr. Tomasa Ley EGFR-AF BAHAMIAN >60 Normal >=60 [facility] Comment on above: Performed By: #### C BC #### [facility] [address] [place] [address] Dr. Tomasa Ley EGFR-NON AF BAHAMIAN >60 Normal >=60 [facility] Comment on above: Performed By: #### C BC #### [facility] [address] [place] [address] Dr. Tomasa Ley Globulin (S) [Mass/Vol] 3.8 g/dL Normal [facility] Comment on above: Performed By: #### C BC #### [facility] [address] [place] [address] Dr. Tomasa Ley Glucose [Mass/Vol] 90 mg/dL Normal 74-106 [facility] [place] Comment on above: Performed By: #### C BC #### [facility] [address] [place] [address] Dr. Tomasa Ley Potassium [Moles/Vol] 4.0 mmol/L Normal 3.5-5.1 [facility] Comment on above: Performed By: #### C BC #### [facility] [address] [place] [address] Dr. Tomasa Ley Protein [Mass/Vol] 7.7 g/dL Normal 6.4-8.2 [facility] [place] Comment on above: Performed By: #### C BC #### [facility] [address] [place] [address] Dr. Tomasa Ley Sodium [Moles/Vol] 140 mmol/L Normal 136-145 [facility] [place] Comment on above: Performed By: #### C BC #### [facility] [address] [place] [address] Dr. Tomasa Ley Urea nitrogen [Mass/Vol] 9.0 mg/dL Normal 7.0-18.0 [facility] Comment on above: Performed By: #### C BC #### [facility] [address] [place] [address] Dr. Tomasa Ley Urea nitrogen/Creatinine [Mass ratio] 8.4 mg/mg Normal [facility] Comment on above: Performed By: #### C BC #### [facility] [address] [place] [address] Dr. Tomasa Ley URINE MICROSCOPIC ONLYon BACTERIA SMALL Abnormal NONE SEEN [facility] Comment on above: Performed By: #### U MICRO, ERUR #### [facility] [address] [place] [address] Dr. Tomasa Ley Bacteria identified Cx Nom (U) INDICATED Normal [facility] Comment on above: Performed By: #### U MICRO, ERUR #### [facility] [address] [address] [address] Tomasa Ley CAST NONE SEEN Normal NONE SEEN [place] [facility] [facility] Comment on above: Performed By: #### U MICRO, ERUR #### [facility] [address] [address] [address] Tomasa Ley Crystals LM Nom (Urine sed) NONE SEEN Normal NONE SEEN [facility] Comment on above: Performed By: #### U MICRO, ERUR #### [facility] [address] [address] [address] Tomasa Ley Epithelial cells LM Ql (Urine sed) MODERATE Abnormal NONE SEEN /RARE [facility] Comment on above: Performed By: #### U MICRO, ERUR #### [facility] [address] [place] [address] Dr. Tomasa Ley MUCOUS NONE SEEN Normal NONE SEEN [facility] Comment on above: Performed By: #### U MICRO, ERUR #### [facility] [address] [place] [address] Dr. Tomasa Ley RBC 2-5 Abnormal 0-[address] [facility] Comment on above: Performed By: #### U MICRO, ERUR #### [facility] [address] [place] [address] Dr. Tomasa Ley WBC 5-10 Abnormal NONE SEEN [facility] Comment on above: Performed By: #### U MICRO, ERUR #### [facility] [address] [place] [address] Dr. Tomasa Ley NM HEPATOBILIARY SCAN W [...] by: PATTY MATHEW Date: 2021-07-20 11:49 Normal [facility] Physician Referralon 022 Physician Referral [id number] Normal [facility] AMYLASEon 07-12-2021 Amylase [Catalytic activity/Vol] 35 U/L Normal 31-110 [facility] Comment on above: Performed By: #### C BC #### [facility] [address] [place] [address] Dr. Tomasa Ley CBC AUTO DIFFon 07-12-2021 BASO # 0.0 103/ul Normal 0.0-0.1 [facility] Comment on above: Performed By: #### C BC #### [facility] [address] [place] [address] Dr. Tomasa Ley Basophils/100 WBC (Bld) 0.5 % Normal 0.2-2.0 [facility] Comment on above: Performed By: #### C BC #### [facility] [address] [place] [address] Dr. Tomasa Ley EO # 0.1 103/ul Normal 0.0-0.7 [facility] Comment on above: Performed By: #### C BC #### [facility] [address] [place] [address] Dr. Tomasa Ley Eosinophils/100 WBC (Bld) 1.1 % Normal 0.9-7.0 [facility] Comment on above: Performed By: #### C BC #### [facility] [address] [place] [address] Dr. Tomasa Ley Erythrocyte distribution width (RBC) [Ratio] 16.2 % Critically high 11.0-15.0 [facility] Comment on above: Performed By: #### C BC #### [facility] [address] [place] [address] Dr. Tomasa Lye Hematocrit (Bld) [Volume fraction] 43.6 % Normal 36.0-48.0 [facility] Comment on above: Performed By: #### C BC #### [facility] [address] [place] [address] Dr. Tomasa Ley Hemoglobin (Bld) [Mass/Vol] 14.2 g/dL Normal 12.0-16.[address] [facility] Comment on above: Performed By: #### C BC #### [facility] [address] [place] [address] Dr. Tomasa Ley IG # 0.02 10e3/ul Normal 0.00-0.03 [facility] Comment on above: Performed By: #### C BC #### [facility] [address] [place] [address] Dr. Tomasa Ley IG % 0.3 % Normal 0.0-0.5 [facility] Comment on above: Performed By: #### C BC #### [facility] [address] [place] [address] Dr. Tomasa Ley LYMPH # 2.0 103/ul Normal 1.2-3.[address] [facility] Comment on above: Performed By: #### C BC #### [facility] [address] [place] [address] Dr. Tomasa Ley Lymphocytes/100 WBC (Bld) 25.8 % Normal 20.5-60.0 [facility] Comment on above: Performed By: #### C BC #### [facility] [address] [place] [address] Dr. Tomasa Ley MANUAL DIFF REQ NO Normal [facility] Comment on above: Performed By: #### C BC #### [facility] [address] [place] [address] Dr. Tomasa Ley MCH (RBC) [Entitic mass] 26.6 pg Critically low 26.7-34.0 [facility] Comment on above: Performed By: #### C BC #### [facility] [address] [place] [address] Dr. Tomasa Ley MCHC (RBC) [Mass/Vol] 32.6 g/dL Normal 29.9-35.2 [facility] Comment on above: Performed By: #### C BC #### [facility] [address] [place] [address] Dr. Tomasa Ley MCV (RBC) [Entitic vol] 81.6 fL Normal 81.0-99.0 [facility] Comment on above: Performed By: #### C BC #### [facility] [address] [place] [address] Dr. Tomasa Ley MONO # 0.7 103/ul Normal 0.3-0.8 [facility] Comment on above: Performed By: #### C BC #### [facility] [address] [place] [address] Dr. Tomasa Ley Monocytes/100 WBC (Bld) 9.1 % Normal 1.7-12.0 [facility] Comment on above: Performed By: #### C BC #### [facility] [address] [place] [address] Dr. Tomasa Ley NEUT # 5.0 103/ul Normal 1.4-6.5 [facility] Comment on above: Performed By: #### C BC #### [facility] [address] [place] [address] Dr. Tomasa Ley Neutrophils/100 WBC (Bld) 63.2 % Normal 43.0-75.0 [facility] Comment on above: Performed By: #### C BC #### [facility] [address] [place] [address] Dr. Tomasa Ley Platelet mean volume (Bld) [Entitic vol] 11.0 fL Normal 9.5-13.[address] [facility] Comment on above: Performed By: #### C BC #### [facility] [address] [place] [address] Dr. Tomasa Ley PLT 236 103/ul Normal 150-[address] [facility] Comment on above: Performed By: #### C BC #### [facility] [address] [place] [address] Dr. Tomasa Ley RBC 5.34 106/ul Normal 4.20-5.40 [facility] Comment on above: Performed By: #### C BC #### [facility] [address] [place] [address] Dr. Tomasa Ley WBC 7.9 103/ul Normal 4.0-11.0 [facility] Comment on above: Performed By: #### C BC #### [facility] [address] [address] [address] Tomasa Ley ER URINE PROFILEon 2 Bilirubin Ql (U) Negative Normal NEGATIVE [facility] Comment on above: Performed By: #### P REGU, UMICRO, ERUR #### [facility] [address] [place] [address] Dr. Tomasa Ley Clarity (U) CLEAR Normal CLEAR [facility] Comment on above: Performed By: #### P REGU, UMICRO, ERUR #### [facility] [address] [place] [address] Dr. Tomasa Ley Color (U) LT. YELLOW Normal YELLOW [facility] Comment on above: Performed By: #### P REGU, UMICRO, ERUR #### [facility] [address] [place] [address] Dr. Tomasa ESTEBAN A micrscopic examination will be performed if indicated. Normal [facility] Comment on above: Performed By: #### P REGU, UMICRO, ERUR #### [facility] [address] [place] [address] Dr. Tomasa Ley Glucose Ql (U) Negative Normal NEGATIVE [facility] Comment on above: Performed By: #### P REGU, UMICRO, ERUR #### [facility] [address] [address] [address] Tomasa Ley Hemoglobin Ql (U) TRACE-INTACT Abnormal NEGATIVE [facility] Comment on above: Performed By: #### P REGU, UMICRO, ERUR #### [facility] [address] [place] [address] Dr. Tomasa Ley Ketones Ql (U) Negative Normal NEGATIVE [facility] Comment on above: Performed By: #### P REGU, UMICRO, ERUR #### [facility] [address] [address] [address] Tomasa Ley LEUKOCYTES Negative Normal NEGATIVE [facility] Comment on above: Performed By: #### P REGU, UMICRO, ERUR #### [facility] [address] [address] [address] Tomasa Ley Nitrite Ql (U) Negative Normal NEGATIVE [facility] Comment on above: Performed By: #### P REGU, UMICRO, ERUR #### [facility] [address] [address] [address] Tomasa Ley pH (U) 5.5 [pH] Normal 5-9 [facility] Comment on above: Performed By: #### P REGU, UMICRO, ERUR #### [facility] [address] [place] [address] Dr. Tomasa Ley SPEC GRAVITY >=1.030 Abnormal 1.005-<=1.025 [facility] Comment on above: Performed By: #### P REGU, UMICRO, ERUR #### [facility] [address] [address] [address] Tomasa Ley UA PROTEIN Negative Normal NEGATIVE/ TRACE [facility] Comment on above: Performed By: #### P REGU, UMICRO, ERUR #### [facility] [address] [address] [address] Tomasa Ley UR MICRO IND INDICATED Normal [facility] Comment on above: Performed By: #### P REGU, UMICRO, ERUR #### [facility] [address] [address] [address] Tomasa Ley Urobilinogen Qn (U) 0.2 {Sly'U}/dL Normal 0.2 - 1. 0 [facility] Comment on above: Performed By: #### P REGU, UMICRO, ERUR #### [facility] [address] [address] [address] Tomasa Ley LIPASEon 07-12-2021 Lipase [Catalytic activity/Vol] 140.0 U/L Normal 23.0-300.0 [facility] Comment on above: Performed By: #### C BC #### [facility] [address] [place] [address] Dr. Tomasa Ley URon 07-12-2021 , QUAL Negative Normal NEGATIVE [facility] Comment on above: Performed By: #### P REGU, UMICRO, ERUR #### [facility] [address] [place] [address] Dr. Tomasa Ley PROF 14(COMP METB)on 022 Albumin [Mass/Vol] 3.9 g/dL Normal 3.5-5.0 [facility] Comment on above: Performed By: #### C BC #### [facility] [address] [place] [address] Dr. Tomasa Ley Albumin/Globulin [Mass ratio] 1.0 {ratio} Normal [facility] Comment on above: Performed By: #### C BC #### [facility] [address] [place] [address] Dr. Tomasa Ley ALP [Catalytic activity/Vol] 102 U/L Normal 38-126 [facility] Comment on above: Performed By: #### C BC #### [facility] [address] [place] [address] Dr. Tomasa Ley ALT [Catalytic activity/Vol] 15 U/L Normal 9-52 [facility] Comment on above: Performed By: #### C BC #### [facility] [address] [place] [address] Dr. Tomasa Ley Anion gap [Moles/Vol] 12.3 mmol/L Normal [facility] Comment on above: Performed By: #### C BC #### [facility] [address] [place] [address] Dr. Tomasa Ley AST [Catalytic activity/Vol] 14 U/L Normal 14-36 [facility] Comment on above: Performed By: #### C BC #### [facility] [address] [place] [address] Dr. Tomasa Ley Bilirubin [Mass/Vol] 0.3 mg/dL Normal 0.2-1.3 [facility] Comment on above: Performed By: #### C BC #### [facility] [address] [place] [address] Dr. Tomasa Ley Calcium [Mass/Vol] 8.8 mg/dL Normal 8.4-10.2 [facility] [place] Comment on above: Performed By: #### C BC #### [facility] [address] [address] [address] Tomasa Ley Chloride [Moles/Vol] 103 mmol/L Normal 98-107 [facility] Comment on above: Performed By: #### C BC #### [facility] [address] [place] [address] Dr. Tomasa Ley CO2 [Moles/Vol] 25.5 mmol/L Normal 22.0-30.0 [facility] Comment on above: Performed By: #### C BC #### [facility] [address] [place] [address] Dr. Tomasa Ley Creatinine [Mass/Vol] 1.01 mg/dL Normal 0.52-1.04 [facility] Comment on above: Performed By: #### C BC #### [facility] [address] [place] [address] Dr. Tomasa Ley EGFR-AF BAHAMIAN 60 mL/min/1.73m2 Normal >=60 [facility] Comment on above: Performed By: #### C BC #### [facility] [address] [place] [address] Dr. Tomasa Ley EGFR-NON AF BAHAMIAN 60 mL/min/1.73m2 Normal >=60 [facility] Comment on above: Performed By: #### C BC #### [facility] [address] [place] [address] Dr. Tomasa Ley Globulin (S) [Mass/Vol] 3.8 g/dL Normal [facility] Comment on above: Performed By: #### C BC #### [facility] [address] [address] [address] Tomasa Ley Glucose [Mass/Vol] 95 mg/dL Normal 74-106 [facility] Comment on above: Performed By: #### C BC #### [facility] [address] [address] [address] Tomasa Ley Potassium [Moles/Vol] 3.8 mmol/L Normal 3.4-5.0 [facility] Comment on above: Performed By: #### C BC #### [facility] [address] [address] [address] Tomasa Ley Protein [Mass/Vol] 7.7 g/dL Normal 6.1-8.2 [facility] [place] Comment on above: Performed By: #### C BC #### [facility] [address] [address] [address] Tomasa Ley Sodium [Moles/Vol] 137 mmol/L Normal 137-145 [facility] [place] Comment on above: Performed By: #### C BC #### [facility] [address] [place] [address] Dr. Tomasa Ley Urea nitrogen [Mass/Vol] 16.0 mg/dL Normal 7.0-17.0 [facility] Comment on above: Performed By: #### C BC #### [facility] [address] [place] [address] Dr. Tomasa Ley Urea nitrogen/Creatinine [Mass ratio] 15.8 mg/mg Normal [facility] Comment on above: Performed By: #### C BC #### [facility] [address] [address] [address] Tomasa Ley URINE MICROSCOPIC ONLYon BACTERIA NONE SEEN Normal NONE SEEN [facility] Comment on above: Performed By: #### P RINKU CHERRY ERUR #### [facility] [address] [address] [address] Tomasa Ley Bacteria identified Cx Nom (U) NOT INDICATED Normal [facility] Comment on above: Performed By: #### P RINKU CHERRY, ERUR #### [facility] [address] [address] [address] Tomasa Ley CAST NONE SEEN Normal NONE SEEN [facility] Comment on above: Performed By: #### P REGU, UMICRO, ERUR #### [facility] [address] [address] [address] Tomasa Ley Crystals LM Nom (Urine sed) NONE SEEN Normal NONE SEEN [facility] Comment on above: Performed By: #### P REGU, UMICRO, ERUR #### [facility] [address] [address] [address] Tomasa Ley Epithelial cells LM Ql (Urine sed) MODERATE Abnormal NONE SEEN /RARE [facility] Comment on above: Performed By: #### P REGU, UMICRO, ERUR #### [facility] [address] [address] [address] Tomasa Ley MUCOUS SMALL Abnormal NONE SEEN [facility] Comment on above: Performed By: #### P REGU, UMICRO, ERUR #### [facility] [address] [address] [address] Tomasa Ley RBC 5-10 Abnormal 0-[address] [facility] Comment on above: Performed By: #### P REGU, UMICRO, ERUR #### [facility] [address] [address] [address] Tomasa Ley WBC NONE SEEN Normal NONE SEEN [facility] Comment on above: Performed By: #### P REGU, UMICRO, ERUR #### [facility] [address] [address] [address] Tomasa Ley US SINGLE QUAD RT [...] PATTY MATHEW Date: 2021-07-12 09:[address] [facility] CBC AUTO DIFFon 12-23-2020 BASO # 0.1 103/ul Normal 0.0-0.[address] [facility] Comment on above: Performed By: #### C BC #### [facility] [address] [address] [address] Tomsaa Ley Basophils/100 WBC (Bld) 0.7 % Normal 0.2-2.[address] [facility] Comment on above: Performed By: #### C BC #### [facility] [address] [place] [address] Dr. Tomasa Ley EO # 0.1 103/ul Normal 0.0-0.[address] [facility] Comment on above: Performed By: #### C BC #### [facility] [address] [place] [address] Dr. Tomasa Ley Eosinophils/100 WBC (Bld) 1.6 % Normal 0.9-7.[address] [facility] Comment on above: Performed By: #### C BC #### [facility] [address] [place] [address] Dr. Tomasa Ley Erythrocyte distribution width (RBC) [Ratio] 16.4 % Critically high 11.0-15.[address] [facility] Comment on above: Performed By: #### C BC #### [facility] [address] [place] [address] Dr. Tomasa Ley Hematocrit (Bld) [Volume fraction] 41.7 % Normal 36.0-48.[address] [facility] Comment on above: Performed By: #### C BC #### [facility] [address] [place] [address] Dr. Tomasa Ley Hemoglobin (Bld) [Mass/Vol] 13.1 g/dL Normal 12.0-16.[address] [facility] Comment on above: Performed By: #### C BC #### [facility] [address] [place] [address] Dr. Tomasa Ley IG # 0.01 10e3/ul Normal 0.00-0.03 [facility] Comment on above: Performed By: #### C BC #### [facility] [address] [place] [address] Dr. Tomasa Ley IG % 0.1 % Normal 0.0-0.5 [facility] Comment on above: Performed By: #### C BC #### [facility] [address] [place] [address] Dr. Tomasa Ley LYMPH # 1.9 103/ul Normal 1.2-3.8 [facility] Comment on above: Performed By: #### C BC #### [facility] [address] [place] [address] Dr. Tomasa Ley Lymphocytes/100 WBC (Bld) 25.6 % Normal 20.5-60.0 [facility] Comment on above: Performed By: #### C BC #### [facility] [address] [place] [address] Dr. Tomasa Ley MANUAL DIFF REQ NO Normal [facility] Comment on above: Performed By: #### C BC #### [facility] [address] [place] [address] Dr. Tomasa Ley MCH (RBC) [Entitic mass] 25.4 pg Critically low 26.7-34.0 [facility] Comment on above: Performed By: #### C BC #### [facility] [address] [place] [address] Dr. Tomasa Ley MCHC (RBC) [Mass/Vol] 31.4 g/dL Normal 29.9-35.2 [facility] Comment on above: Performed By: #### C BC #### [facility] [address] [place] [address] Dr. Tomasa Ley MCV (RBC) [Entitic vol] 80.8 fL Critically low 81.0-99.0 [facility] Comment on above: Performed By: #### C BC #### [facility] [address] [place] [address] Dr. Tomasa Ley MONO # 0.7 103/ul Normal 0.3-0.8 [facility] Comment on above: Performed By: #### C BC #### [facility] [address] [place] [address] Dr. Tomasa Ley Monocytes/100 WBC (Bld) 10.0 % Normal 1.7-12.0 [facility] Comment on above: Performed By: #### C BC #### [facility] [address] [place] [address] Dr. Tomasa Ley NEUT # 4.6 103/ul Normal 1.4-6.5 [facility] Comment on above: Performed By: #### C BC #### [facility] [address] [place] [address] Dr. Tomasa Ley Neutrophils/100 WBC (Bld) 62.0 % Normal 43.0-75.0 [facility] Comment on above: Performed By: #### C BC #### [facility] [address] [place] [address] Dr. Tomasa Ley Platelet mean volume (Bld) [Entitic vol] 11.5 fL Normal 9.5-13.[address] [facility] Comment on above: Performed By: #### C BC #### [facility] [address] [place] [address] Dr. Tomasa Ley PLT 244 103/ul Normal 150-[address] [facility] Comment on above: Performed By: #### C BC #### [facility] [address] [place] [address] Dr. Tomasa Ley RBC 5.16 106/ul Normal 4.20-5.[address] [facility] Comment on above: Performed By: #### C BC #### [facility] [address] [place] [address] Dr. Tomasa Ley WBC 7.4 103/ul Normal 4.0-11.[address] [facility] Comment on above: Performed By: #### C BC #### [facility] [address] [place] [address] Dr. Tomasa Ley CULTURE URINEon 12-23-2020 CULTURE URINE Culture Observations : NO GROWTH. Normal [facility] Comment on above: Performed By: #### C BC #### [facility] [address] [place] [address] Dr. Tomasa Ley PROF 14(COMP METB)on 021 Albumin [Mass/Vol] 3.7 g/dL Normal 3.5-5.0 [facility] [place] Comment on above: Performed By: #### C BC #### [facility] [address] [place] [address] Dr. Tomasa Ley Albumin/Globulin [Mass ratio] 1.0 {ratio} Normal [facility] Comment on above: Performed By: #### C BC #### [facility] [address] [place] [address] Dr. Tomasa Ley ALP [Catalytic activity/Vol] 83 U/L Normal 38-126 [facility] Comment on above: Performed By: #### C BC #### [facility] [address] [place] [address] Dr. Tomasa Ley ALT [Catalytic activity/Vol] 23 U/L Normal 9-52 [facility] Comment on above: Performed By: #### C BC #### [facility] [address] [place] [address] Dr. Tomasa Ley Anion gap [Moles/Vol] 11.4 mmol/L Normal [facility] Comment on above: Performed By: #### C BC #### [facility] [address] [place] [address] Dr. Tomasa Ley AST [Catalytic activity/Vol] 19 U/L Normal 14-36 [facility] Comment on above: Performed By: #### C BC #### [facility] [address] [place] [address] Dr. Tomasa Ley Bilirubin [Mass/Vol] 0.3 mg/dL Normal 0.2-1.3 [facility] Comment on above: Performed By: #### C BC #### [facility] [address] [place] [address] Dr. Tomasa Ley Calcium [Mass/Vol] 8.4 mg/dL Normal 8.4-10.2 [facility] Comment on above: Performed By: #### C BC #### [facility] [address] [address] [address] Tomasa Ley Chloride [Moles/Vol] 101 mmol/L Normal 98-107 [facility] Comment on above: Performed By: #### C BC #### [facility] [address] [place] [address] Dr. Tomasa Ley CO2 [Moles/Vol] 29.4 mmol/L Normal 22.0-30.0 [facility] Comment on above: Performed By: #### C BC #### [facility] [address] [place] [address] Dr. Tomasa Ley Creatinine [Mass/Vol] 1.03 mg/dL Normal 0.52-1.04 [facility] Comment on above: Performed By: #### C BC #### [facility] [address] [place] [address] Dr. Tomasa Ley EGFR-AF BAHAMIAN >60 Normal >=60 [facility] Comment on above: Performed By: #### C BC #### [facility] [address] [place] [address] Dr. Tomasa Ley EGFR-NON AF BAHAMIAN >60 Normal >=60 [facility] Comment on above: Performed By: #### C BC #### [facility] [address] [place] [address] Dr. Tomasa Ley Globulin (S) [Mass/Vol] 3.6 g/dL Normal [facility] Comment on above: Performed By: #### C BC #### [facility] [address] [place] [address] Dr. Tomasa Ley Glucose [Mass/Vol] 85 mg/dL Normal 74-106 [facility] [place] Comment on above: Performed By: #### C BC #### [facility] [address] [place] [address] Dr. Tomasa Ley Potassium [Moles/Vol] 3.8 mmol/L Normal 3.4-5.0 [facility] Comment on above: Performed By: #### C BC #### [facility] [address] [place] [address] Dr. Tomasa Ley Protein [Mass/Vol] 7.3 g/dL Normal 6.1-8.2 [facility] [place] Comment on above: Performed By: #### C BC #### [facility] [address] [place] [address] Dr. Tomasa Ley Sodium [Moles/Vol] 138 mmol/L Normal 137-145 [facility] [place] Comment on above: Performed By: #### C BC #### [facility] [address] [place] [address] Dr. Tomasa Ley Urea nitrogen [Mass/Vol] 9.0 mg/dL Normal 7.0-17.0 [facility] Comment on above: Performed By: #### C BC #### [facility] [address] [place] [address] Dr. Tomasa Ley Urea nitrogen/Creatinine [Mass ratio] 8.7 mg/mg Normal [facility] Comment on above: Performed By: #### C BC #### [facility] [address] [place] [address] Dr. Tomasa Ley UA RANDOMon 12-23-2020 Bilirubin Ql (U) Negative Normal NEGATIVE [facility] Comment on above: Performed By: #### U A #### [facility] [address] [place] [address] Cedrick Kathleen Clarity (U) CLEAR Normal CLEAR [facility] Comment on above: Performed By: #### U A #### [facility] [address] [place] [address] Cedrick Kathleen Color (U) LT. YELLOW Normal YELLOW [facility] Comment on above: Performed By: #### U A #### [facility] [address] [place] [address] Cedrick Kathleen Glucose Ql (U) Negative Normal NEGATIVE [facility] Comment on above: Performed By: #### U A #### [facility] [address] [place] [address] Cedrick Kathleen Hemoglobin Ql (U) Negative Normal NEGATIVE [facility] Comment on above: Performed By: #### U A #### [facility] [address] [address] Cedrick Kathleen Ketones Ql (U) Negative Normal NEGATIVE [facility] Comment on above: Performed By: #### U A #### [facility] [address] [place], [place] [id number] Cedrick Kathleen LEUKOCYTES Negative Normal NEGATIVE [facility] Comment on above: Performed By: #### U A #### [facility] [address] [place], [place] [id number] Cedrick Kathleen Nitrite Ql (U) Negative Normal NEGATIVE [facility] Comment on above: Performed By: #### U A #### [facility] [address] [place], [place] [address] Cedrick Kathleen pH (U) 5.5 [pH] Normal 5-9 [facility] Comment on above: Performed By: #### U A #### [facility] [address] [place] [address] Cedrick Wang SPEC GRAVITY <=1.005 Abnormal 1.005-<=1.025 [facility] Comment on above: Performed By: #### U A #### [facility] [address] [place], [place] [address] Cedrick Kathleen UA PROTEIN Negative Normal NEGATIVE/ TRACE [facility] Comment on above: Performed By: #### U A #### [facility] [address] [place], [place] [address] Cedrick Wang Urobilinogen Qn (U) 0.2 {Sly'U}/dL Normal 0.2 - 1. 0 [facility] Comment on above: Performed By: #### U A #### [facility] [address] [place], [place] [address] Cedrick Kathleen US KIDNEYS BLADDERon 021 US [...] by: JABIER ALSTON Date: 2020-12-23 15:06 Normal [facility] Vital Signs Date Time Vital Sign Value Performing Clinician Facility 05-04-2024 08:03-0500 Body mass index (BMI) [Ratio] 34.11 kg/m2 Sabrina Head SUPERVISOR FELLING BUCKING Work Phone: [facility] 05-04-2024 08:03-0500 Body weight 92.99 kg Sabrina Head SUPERVISOR FELLING BUCKING Work Phone: [facility] 05-04-2024 08:03-0500 Diastolic blood pressure 74 mm[Hg] Sabrina Head SUPERVISOR [employer]ING [employer]CKING Work Phone: [facility] 05-04-2024 08:03-0500 Heart rate 53 /min Sabrina Head SUPERVISOR [employer]ING [employer]ING Work Phone: [facility] 05-04-2024 08:03-0500 Systolic blood pressure 110 mm[Hg] Sabrina Head SUPERVISOR FE[employer]ING [employer]CKING Work Phone: [facility] 02-09-2023 13:45-0400 Body height 158.12 cm Elin Bryan Other [employer] Other 02-09-2023 13:45-0400 Body mass index (BMI) [Ratio] 37.19 kg/m2 Elin Bryan Other [employer] Other 02-09-2023 13:45-0400 Body temperature 98.1 [degF] Elin Bryan Other [employer] Other 02-09-2023 13:45-0400 Body weight 92.99 kg Elin Bryan Other [employer] Other 02-09-2023 13:45-0400 Respiratory rate 18 /min Elin Bryan Other [employer] Other 02-09-2023 13:45-0400 SaO2% (BldA) [Mass fraction] 98 % Elin Randi Other [employer] Other Encounters Encounter Date Encounter Type Care Provider Facility Start: 05-18-2024 End: 05-18-2024 Telephone encounter Sabrina Head SUPERVISOR [employer]LLING [employer]ING Work Phone: [facility] Comment on above: Advice Only Start: 05-10-2024 End: 05-10-2024 Telephone encounter Lori Blackwell DRILLING 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 [facility] Comment on above: Medication Problem Start: 05-04-2024 End: 05-04-2024 Bamboo flowsheet Sabrina Head SUPERVISOR [employer] Work Phone: [facility] Start: 05-04-2024 End: 05-04-2024 Bamboo flowsheet Sabrina Head SUPERVISOR [employer]ING Work Phone: [facility] Start: 05-04-2024 End: 05-04-2024 Office outpatient new 60 minutes Sabrina Head SUPERVISOR [employer]ING [employer] Work Phone: [facility] Comment on above: [...] encounter procedure MD Lydia San Work Phone: [facility] Work Phone: Start: 02-09-2023 End: 10-08-2023 ambulatory MD Lydia San Work Phone: [facility] Other Start: 02-09-2023 Office outpatient visit 15 minutes Elin Bryna [facility] Start: 09-10-2022 ambulatory Rob eTjada acility:[facility] Start: 12-08-2021 End: 12-08-[address] [...] ice Visit [facility] [address] [facility] [address] [place] [address] Sabrina Head NP [address] [facility] [address] [place] [address] [facility] Start: 06-09-2024 End: 06-09-2024 Patient encounter procedure 06/09/2024 9:30 AM EST Off ice Visit [facility] [address] [facility] [address] [place] [address] Sabrina Head, CONY [address] [facility] [address] [place] [address] [facility] Start: 05-04-2024 End: 05-04-2024 Patient encounter procedure 05/04/2024 8:00 AM EST Off ice Visit [facility] [address] [facility] [address] [place] [address] Sabrina Head NP [address] [facility] [address] [place] [address] Arrived [facility] Comment on above: Arrived Immunizations Immunization Date Immunization Notes Care Provider Fa cility 07-11-2018 tetanus toxoid, reduced diphtheria toxoid, and acellular pertussis vaccine, adsorbed MD Lydia San Work Phone: [facility] 04-10-2011 human papilloma viru s vaccine, quadrivalent Elin Bryan Other [employer] Other Payers Date Payer Category Payer Self-pay [id number] 2021 [facility] [id number] 1992 Unknown [id number]. 593 1992 Unknown [id number] 06.20.840.1.717902.3.579.2. 593 1992 Unknown [id number] 2.16.840.1.550223.3.579.2. 593 1992 Unknown [id number] 2.16.840.1.699268.3.579.2. 593 1992 Unknown [id number] 2.16.840.1.950495.3.579.2. 593 1992 Unknown [id number] 2.16.840.1.991833.3.579.2. 593 1992 Unknown [id number] 2.16.840.1.042826.3.579.2. 1259 1992 Unknown [id number] 2.16.840.1.132457.3.579.2. 1259 1992 Unknown [id number] 2.16.840.1.556334.3.579.2. 1259 1992 Unknown [id number] 2.16.840.1.984345.3.579.2. 1259 1992 Unknown [id number] 2.16.840.1.105105.3.579.2. 1259 1959 Private Health Insurance [id number] 1959 Private Health Insurance [id number] 1959 Unknown [id number] 1959 Unknown [id number] Medicaid Medicaid [id number] Private Health Insurance [facility] [id number] Unknown MMO [id number] Unknown [id number] 2.16.840.1.935162.3.579.2. 531 Unknown [id number] 2.16840.1.631449.3.579.2. 531 Social History Date Type Detail Facility Unknown if ever smoked [employer] Other Start: 09-15-2023 End: 05-04-2024 Sex Assigned At [facility] Other Start: 07-20-2021 End: 09-15-2023 Tobacco smoking status NHIS Never smoked tobacco (finding) [facility] Start: 1990 Sex Assigned At Female [facility] Start: 09-15-2023 Tobacco use and exposure Smokeless [...] to give her medication time to work. [facility] 05-18-2024 Miscellaneous Notes Formattin g of [...] scheduled for 06/09/24. documented in this encounter [facility] 05-18-2024 Telephone encount er Note Patient [...] has a follow up scheduled for 06/09/24. [facility] 05-10-2024 Telephone encount er Note Order for Remeron sent. [facility] 05-10-2024 Miscellaneous Notes Formattin g of [...] to appt. Would like remeron sent to [facility] Patients Kahlil came in office for [...] from his appt. documented in this encounter [facility] 05-10-2024 Telephone encount er Note Contacted [...] to appt. Would like remeron sent to [facility] 05-10-2024 Telephone encount er Note Patients [...] on his way out from his appt. [facility] 05-04-2024 History of Presen t illness Narrative Images from the original note were not included. Lindsay Montilla is a 33 y.o. 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 Patient was referred by [facility]. Rosemarie, who is her pillowcase folder from [facility], is here today for additional support. HPI: Reason for visit: Lindsay Montilla has been experiencing problems with depression and anxiety for many years. She is here to discuss possible medication options to help her symptoms. Developmental History/Childhood: Raised primarily by bio mom between the [facility]. 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 She states she has not seen [...] was with for 6 years. Education: Attended [employer] and obtained her high school diploma. Also attended some courses at [employer]. Legal history: Denies Family history of mental [...] current , Kahlil, for 10 years. 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 Children: 1 daughter (6 years old) Living situation: Lives in home with and their daughter. They have 3 dogs, a bird and a snake. Occupation: Unemployed for the past 5 years. 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 Patient was seen Face to Face, Total time spent with patient was 60 minutes, which includes reviewing chart documents, previous notes/records, counseling and discussion with patient and/or coordination of care as described above. documented in this encounter [facility] 02-09-2023 Evaluation note Encounter Date Diagnosis [...] middle finger, initial encounter (ICD-10 - S69.92XA) [employer] Other 08-01-2023 History general Narrative - Reported* Type Description Date Medical History autoimmune disorder Medical History hyperprolactinemia Medical History Wilms tumor, [place] Surgical History Removal of left kidney 1998 Surgical History GALL BLADDER 12/2022 Hospitalization History Removal of left kidney 1 999 Hospitalization History GALL BLADDER Hospitalization History 1 CHILD [employer] Other Evaluation noteNo assessment information available [facility] Work Phone: Evaluation note* Diagnosis Mild episode [...] section and content) DATE CREATED AUTHOR 07/14/[address] [employer] [facility] DATE CREATED AUTHOR AUTHOR'S ORGANIZ ATION 12/10/2021 [facility] DATE CREATED AUTHOR AUTHOR'S ORGANIZ ATION 02/14/2023 [facility] DATE CREATED AUTHOR AUTHOR'S ORGANIZ ATION 05/05/2024 [facility] dical Specialists EPIC REASON FOR VISIT (unrecogniz ed section and content) Reason Comments Psychiatric Evaluation NEDA referral Specialty Diagnoses / Procedures Referred By Contac t Referred To Contact Behavioral Health Diagnoses Insomnia, unspecified Procedures [place] [employer]UATION [employer] MANAGEMENT Lydia San MD [address] [place] [address] Phone: tel: fax: Sabrina Head NP [address] [address] Phone: tel: fax: Referral ID Status Reason Start Date Expiration Date Visits Re quested Visits Authorized [id number] Closed 04/19/2024 10/16/2024 1 1 Reason Onset Date Comments Medication Problem 05/10/2024 Reason Onset Date Comments Advice Only 05/18/2024 Care Teams (unrecognized sec tion and content) Team Status: Active Member Role Status Dates Lydia San MD Primary Care Provider Active Team Status: Inactive Member Role Status Dates Lydia San MD Primary Care Provider Active Elin Bryan APRN Attending Provider Active Gold Stamper Relationship Specialty Start Date End Date Lydia San MD [address] [place] [address] PCP - General Family Medicine 09/15/23 Gold Stamper Relationship Specialty Start Date End Date Lydia San MD [address] [place] [address] PCP - General Family Medicine 09/15/23 Sabrina Head NP [address] [id number] Nurse Practitioner Behavioral Health 05/04/24 Gold Stamper Relationship Specialty Start Date End Date Lydia San MD [address] [place] [address] PCP - General Family Medicine 09/15/23 Sabrina Head NP [address] [facility] [address] [place] [address] Nurse Practitioner Behavioral Health 05/04/24 Gold Stamper Relationship Specialty Start Date End Date Lydia San MD [address] [place] [address] PCP - General Family Medicine 09/15/23 Sabrina Head NP [address] [address] Nurse Practitioner Behavioral Health 05/04/24 Goals (unrecognized [...] BE BASED ON THE PRIMARY CLINICAL RECORDS. [employer] provides no warranty or guarantee of the accuracy or completeness of information in this document.
--- NOTE | 2024-06-02 08:30 | CA_ITS ---
Patient Name: GEMA MONTILLA MR#: [id number] : 1990 Exam Date: 06/02/2024 Ordering Doctor: DR LYDIA ESTRELLA . ECHOCARDIOGRAM REPORT PROCEDURE: CA ECHO DOPPLER COMPLETE INDICATIONS: Chest pain, h/o kidney cancer - chemotherapy, nephrectomy COMPARISON: None. DESCRIPTION: COMPLETE ECHOCARDIOGRAM Real-time transthoracic echocardiography with 2D, M-mode, spectral and color flow Doppler performed. QUALITY: Technical quality was good. LEFT VENTRICLE: Normal chamber size. Normal left ventricular wall thickness. Normal systolic function. LV EF: Normal left ventricular ejection fraction, (55-60%). DIASTOLIC: Normal diastolic function. ATRIAL SEPTUM: Visually appears intact. LEFT ATRIUM: Normal chamber size. RIGHT ATRIUM: Normal chamber size. RIGHT VENTRICLE: Normal chamber size. Normal right ventricular systolic function. TRICUSPID VALVE: Normal mobility and thickness. No stenosis with trivial regurgitation. No evidence of pulmonary hypertension. RVSP 19 mmHg MITRAL VALVE: Normal mobility and thickness. No mitral valve prolapse. No evidence of mitral valve stenosis. There is no mitral annular calcification. Trivial mitral regurgitation. AORTIC VALVE: Normal trileaflet appearance. No visible sclerosis. Normal leaflet mobility. No evidence of aortic valve stenosis. No aortic regurgitation. AORTIC ROOT: Normal diameter and appearance. PULMONIC VALVE: Normal thickness and mobility. No stenosis. No regurgitation. PERICARDIUM: No evidence of pericardial effusion. IVC: Collapses with inspirations. PLEURA: CONCLUSION: 1. Normal ventricular size and systolic function. LVEF is 55-60%. 2. Normal diastolic function. 3. No significant valvular dysfunction. 4. Normal right sided pressures. Adult Echocardiography Procedure Report Left Ventricle LVEDD (3.7 - 5.6 cm): 4.48 cm LVESD (2.2 - 4.0 cm): 3.23 cm LVIVS thickness (0.6 - 1.2 cm): 0.89 cm LVPW thickness (0.5 - 1.0 cm): 0.75 cm e': 0.14 m/s E - e': 5.23 LVOT Max Gradient: 3.77 mm[Hg] LVOT Area (cm2): 0.97 m/s Peak Velocity (LVOT): 0.97 m/s Mean Velocity (LVOT): 0.61 m/s LVOT Diameter 1.98 cm Left Atrium LA Volume Index (2D A2C): 14.04 ml/m2 Left Atrium Systolic Dimension: 3.58 cm Mitral Valve MV E to A Ratio: 1.63 Mitral Valve A-Wave Peak Velocity: 0.44 m/s Mitral Valve E-Wave Peak Velocity: 0.72 m/s Right Ventricle Aorta AO Root Diam: 2.81 cm Aortic Valve AoV Area (Peak Anthony): 2.64 cm2, 2.64 cm2 AoV Area (VTI): 2.48 cm2, 2.48 cm2 Peak Velocity(Antegrade Flow): 1.13 m/s Peak Gradient(Antegrade Flow): 5.12 mm[Hg] Mean Velocity(Antegrade Flow): 0.80 m/s Mean Gradient(Antegrade Flow): 2.93 mm[Hg] Velocity Time Integral: 25.50 cm Tricuspid Valve Peak Velocity (Regurgitant Flow): 2.00 m/s Pulmonic Valve Mean Gradient: 1.57 mm[Hg] Mean Velocity: 0.58 m/s Peak Velocity: 0.86 m/s, 0.81 m/s Peak Gradient: 2.63 mm[Hg], 2.96 mm[Hg] Right Atrium Right Atrium Systolic Pressure: 41.41 ml, 41.41 ml Dictated by: Willem Joshua M.D. on 06/02/2024 at 18:45 Approved by: Willem Joshua M.D. on 06/02/2024 at 18:47
--- NOTE | 2024-06-02 09:41 | PC.NURSE ---
Nursing Note Cardiac Stress Test Reviewed: Medication, allergies and patient history reviewed. Stress Test: [x ] Patient tolerated stress test well. [ ] Patient unable to tolerate walking on treadmill. Switched to Lexiscan stress test. [x ] No chest pain noted per patient [ ] Chest pain that resolved prior to leaving stress lab. [ ] No dyspnea noted. [x ] Dyspnea that resolved prior to leaving stress lab. [x ] Patient left stress lab asymptomatic and hemodynamically stable. [ ] Patient taken to the Emergency Room due to non-resolving symptoms following stress test. [x] Patient achieved target heart rate. [ ] Patient unable to achieve target heart rate. [ ] Aminophylline administered as reversal agent to Lexiscan (Regadenoson). [ ] Nitro administered. Nursing Comments:Pt had regular TM stress test and tolerated well. Pt started to have some SOB and leg cramping toward the end of the test but this resolved within 3 minutes of rest. Pt left stress lab with no symptoms.
--- NOTE | 2024-06-02 10:41 | PM.STRESS ---
Stress Test Stress Test Requesting physician: Juan San Procedure: Exercise stress test General Information: Reason for Stress Test: Chest pain Cardiac History and Risk Factors: No personal history. Brother and grandfather have unspecified cardiovascular disease. Resting 12 - Lead Electrocardiogram: Normal sinus rhythm at a rate of 64. Possible right bundle conduction delay No ST-segment abnormalities Flattened/biphasic T-waves in aVL and V3 Stress Test: Protocol: Camilo protocol was followed Exercise capacity: Good exercise capacity. Total exercise time of 6 minutes 58 seconds reached Camilo stage 3 at 3.4MPH, 14% grade, & 9.9 METs. Blood pressure: Initial: 104/76, Maximum: 180/94 Rate & rhythm: Patient remained in sinus rhythm during the exercise and recovery portions of the study.? The maximum heart rate was 176, which was 93% of the maximum predicted heart rate. ST-segments & T-waves: There were no T-wave changes or ST-segment changes when compared to the baseline EKG. Patient response/symptoms: There were no symptoms similar to the chief complaint. Interpretation: Normal exercise stress test without electrocardiographical evidence of ischemia. Asymptomatic of chief complaint. Alvarado treadmill score is 7, which places patient in a low risk category. Clinical correlation required.
== END 2024-06-02 08:07 | disposition home or self-care (01) ==
LOC: CARD 08:06
PROVIDERS: PCP Family Medicine; Visit Provider Family Medicine
DX: R07.9 Chest pain, unspecified (principal); M79.606 Pain in leg, unspecified
CPT/HCPCS: 93017; 93306

== ENCOUNTER 2024-06-04 09:21 | Outpatient (OUT) | payer BC, SELFPAY ==
--- NOTE | 2024-06-04 09:24 | US_ITS ---
The [address] [address] Patient Name: GEMA MONTILLA MRN: [id number] date: 1990 Sex: F Assigned Patient Location: US Current Patient Location: US Accession/Order Number: [id number] Exam Date: 06/04/2024 09:30 Report Date: 06/04/2024 10:29 At the request of: LYDIA ESTRELLA Procedure: US renal bladder EXAMINATION: US renal bladder HISTORY: Abnormal Renal Function COMPARISON: No relevant comparison available. TECHNIQUE: Ultrasound examination was performed of the bladder. FINDINGS: Right Kidney: Normal in size, contour and echotexture. The cortex measures 1.2 cm. Area of anechoic echogenicity measuring 1.4 cm, cortical cyst. No hydronephrosis or obstructing nephrolithiasis. No solid cortical mass Height: 7.70 cm Length: 11.23 cm Width: 7.14 cm Left Kidney: Surgically absent The urinary bladder is normal in appearance. Prevoid volume ML. Post void volume 2 mL Ureteral jets: Visualized on the right, not visualized in the left No ascites US/US renal bladder IMPRESSION: 1.4 cm right cortical cyst Electronically authenticated by: VINAY BURROUGHS Date: 06/04/2024 10:29
--- OUTSIDE RECORDS SUMMARY | 2024-06-04 09:25 | XMS_ITS | CCD ---
Author Organization [facility] CliniSywa Care Team Providers Care Veneer Sander Name Role Phone SAMEER, DR FREEMAN Admitting [...] Unavailable MD Lydia San Primary Care Provider [phone] TETE Bryan Attending Provider Lydia San Primary Care Unavailable Elin Bryan Admitting Unavailable Elin Bryan Attending Unavailable Rob Coello Admitting Unavailab Rob Broderick Attending Unavailab le Lydia San Primary Care Unavailable Lydia San MD Primary Care Provider [phone] FER ROMAN Attending Unavailable ROMAN, PENOLA P Referring Unavailable EFR ROMAN Referring Unavailable FER ROMAN Attending Unavailable FER ROMAN Attending Unavailable FER ROMAN Referring Unavailable SABRINA HEAD Attending Unavailable LYDIA SAN Referring Unavailable Sabrina Head NP Unavailable Allergies Allergy Classification Reported Allergen(s) Allergy Type Date of Onset Reaction(s) Facility (1 source) HYDROcodone Drug Allergy [facility] Repository (5 sources) buPROPion Drug Allergy 4 Other [facility] Healthcare (5 sources) Escitalopram Drug Allergy 4 Other [facility] Healthcare (5 sources) Wound Dressing Adhesive Drug Intolerance 3 [facility] Healthcare Medications Current Medications Medication [...] Discontinued (Side effects) 21 day ethinyl estradiol 0.149367 mg/hr / etonogestrel 0.005 mg/hr vaginal system [...] tablet 1 05/10/2024 05/18/2024 Discontinued (Side effects) [place] (No Known Home Meds) (1 source) Start: 07-20-2021 [place] (No Known Home Meds) Active July 20, [...] Drug Class(es) Dates Sig (Normalized) Sig (Original) [id number] actuat albuterol 0.09 mg/actuat metered dose [...] 2018 1:00am July 20, 2021 4:10pm Vit 29-Eutx-Abbyr-Dha ( + Dha) 28 mg iron- 975 mcg-200 mg Combo Pack (1 source) Start: 06-18-2018 End: 07-20-2021 Vit 23-Svdp-Wwuph-Dha ( + Dha) 28 mg iron- 975 [...] 3V*on 023 XR hand LT min 3V* [facility] [place] [address] XRay Report Signed Patient: Lindsay Montilla MR#: [id number] 0 : 1990 Acct:[id number] Age/Sex: 32 / F ADM Date: 02/09/23 Loc: XDUC Room: Type: [facility] Attending Dr: Elin Bryan APRN Copies [...] Kathleen Cheng M.D.02/09/2023 3:30 PM Dictation Location: [place] [address] Transcribed By: [facility] 02/09/23 1530 Dictated By: Kathleen Cheng MD 02/09/23 1529 Signed By: 02/09/23 153 Normal [facility] XR hand LT min 3V* [facility] [employer] Other XR hand LT min 3V* [facility] Main [facility] [employer] Other XR hand LT min 3V* [address] [facility] [employer] Other XR hand LT min 3V* JOSE Velazquez [address] [place] [employer] Other XR hand LT min 3V* XRay Report [employer] Other XR hand LT min 3V* Signed [employer] Other XR hand LT min 3V* Patient: Lindsay Montilla MR#: [id number] [employer] Other XR hand LT min 3V* 0 [employer] Other XR hand LT min 3V* : 1990 Acct:[id number] [employer] Other XR hand LT min 3V* Age/Sex: 32 / F ADM Date: 02/09/23 [employer] Other XR hand LT min 3V* Loc: XDUCLY Room: Type: [facility] [employer] Other XR hand LT min 3V* Attending Dr: Elin Bryan PHOTO[employer] Other XR hand LT min 3V* Copies to: Elin Bryan [employer] Other XR hand LT min 3V* Ordering Provider: Elin Bryan APRN [employer] Other XR hand LT min 3V* Date of Service: 02/09/23 [employer] Other XR hand LT min 3V* XR/XR hand LT min 3V*: LEFT HAND INJURY [employer] Other XR hand LT min 3V* LEFT HAND - 3 views [employer] Other XR hand LT min 3V* CLINICAL DATA: Crush injury of the left fingers this morning. Pain and swelling at the third and [employer] Other XR hand LT min 3V* fourth digits. No rt [employer] Other XR hand LT min 3V* COMPARISON: None [employer] Other XR hand LT min 3V* AP, lateral and oblique views were obtained. There is no evidence of fracture or dislocation. [employer] Other XR hand LT min 3V* There are no significant soft tissue abnormalities. [employer] Other XR hand LT min 3V* XR/XR hand LT min 3V* [employer] Other XR hand LT min 3V* IMPRESSION: [employer] Other XR hand LT min 3V* NO ACUTE BONY INJURY. [employer] Other XR hand LT min 3V* Impression dictated by: Kathleen Cheng M.D.02/09/2023 3:30 PM [employer] Other XR hand LT min 3V* Dictation Location: [place] [address] [employer] Other XR hand LT min 3V* Transcribed By: MARLA 02/09/23 1530 [employer] Other XR hand LT min 3V* Dictated By: Kathleen Cheng MD 02/09/23 1529 [employer] Other XR hand LT min 3V* Signed By: [employer] Other XR hand LT min 3V* 02/09/23 1530 [place] [employer] Other GI PANEL (PCR)on 12-08-2021 Adenovirus F 40/41 Not detected Normal NOT DETECTED Th [facility] Comment on above: Performed By: #### G IPANEL #### [facility] [address] [address] [address] Tomasa Ley Astrovirus Not detected Normal NOT DETECTED [facility] Comment on above: Performed By: #### G IPANEL #### [facility] [address] [place] [address] Dr. Tomasa Ley C. Diff toxin A/B Not detected Normal NOT DETECTED [facility] Comment on above: Performed By: #### G IPANEL #### [facility] [address] [address] [address] Tomasa Ley Campylobacter Not detected Normal NOT DETECTED The [facility] Comment on above: Performed By: #### G IPANEL #### [facility] [address] [place] [address] Dr. Tomasa Ley Cryptosporidium Not detected Normal NOT DETECTED [facility] Comment on above: Performed By: #### G IPANEL #### [facility] [address] [place] [address] Dr. Tomasa Ley Cyclos. Cayetanensis Not detected Normal NOT DETECTED [facility] Comment on above: Performed By: #### G IPANEL #### [facility] [address] [place] [address] Dr. Tomasa Ley E. Coli O157 Not Applicable Normal Not Applicable [facility] Comment on above: Performed By: #### G IPANEL #### [facility] [address] [place] [address] Dr. Tomasa Ley E. histolytica Not detected Normal NOT DETECTED The [facility] Comment on above: Performed By: #### G IPANEL #### [facility] [address] [place] [address] Dr. Tomasa Ley EAEC Not detected Normal NOT DETECTED [facility] Comment on above: Performed By: #### G IPANEL #### [facility] [address] [place] [address] Dr. Tomasa Ley EIEC Not detected Normal NOT DETECTED [facility] Comment on above: Performed By: #### G IPANEL #### [facility] [address] [address] [address] Tomasa Ley EPEC Not detected Normal NOT DETECTED [facility] Comment on above: Performed By: #### G IPANEL #### [facility] [address] [address] [address] Tomasa Ley ETEC Not detected Normal NOT DETECTED [facility] Comment on above: Performed By: #### G IPANEL #### [facility] [address] [address] [address] Tomasa Zuñiga Lamblia Not detected Normal NOT DETECTED [facility] Comment on above: Performed By: #### G IPANEL #### [facility] [address] [address] [address] Tomasa LOO CONTROLS PASSED Normal [facility] Comment on above: Performed By: #### G IPANEL #### [facility] [address] [place] [address] Dr. Tomasa SNYDER HEADER GI PANEL BACTERIA Normal T [facility] Comment on above: Performed By: #### G IPANEL #### [facility] [address] [address] [address] Tomasa RUCKER ECOLI GI PANEL DIARRHEAGENIC E.COLI / SHIGELLA Normal [facility] Comment on above: Performed By: #### G IPANEL #### [facility] [address] [place] [address] Dr. Tomasa RUCKER INFO SEE BELOW Normal [facility] Comment on above: Result Comment: EAEC - Enteroaggregative E. Coli EPEC- Enteropathogenic E. Coli ETEC- Enterotoxigenic E. Coli lt/st STEC- Shigella-like toxin-producing E. Coli stx1/stx2 EIEC- Shigella/Enteroinvasive E. Coli Performed By: #### G IPANEL #### [facility] [address] [place] [address] Dr. Tomasa RUCKER PARASITES GI PANEL PARASITES Normal [facility] Comment on above: Performed By: #### G IPANEL #### [facility] [address] [address] [address] [facility] PANEL VIRUSES Normal [facility] Comment on above: Performed By: #### G IPANEL #### [facility] [address] [place] [address] Dr. Tomasa Ley Norovirus GI/GII Not detected Normal NOT DETECTED [facility] Comment on above: Performed By: #### G IPANEL #### [facility] [address] [place] [address] Dr. Tomasa Ley P. Shigelloides Not detected Normal NOT DETECTED [facility] Comment on above: Performed By: #### G IPANEL #### [facility] [address] [place] [address] Dr. Tomasa Ley Rotavirus A Not detected Normal NOT DETECTED [facility] Comment on above: Performed By: #### G IPANEL #### [facility] [address] [place] [address] Dr. Tomasa Ley Salmonella Not detected Normal NOT DETECTED [facility] Comment on above: Performed By: #### G IPANEL #### [facility] [address] [place] [address] Dr. Tomasa Ley Sapovirus Not detected Normal NOT DETECTED [facility] Comment on above: Performed By: #### G IPANEL #### [facility] [address] [place] [address] Dr. Tomasa Ley STEC Not detected Normal NOT DETECTED [facility] Comment on above: Performed By: #### G IPANEL #### [facility] [address] [place] [address] Dr. Tomasa Ley Vibrio Not detected Normal NOT DETECTED [facility] Comment on above: Performed By: #### G IPANEL #### [facility] [address] [place] [address] Dr. Tomasa Ley Vibrio Cholera Not detected Normal NOT DETECTED [facility] Comment on above: Performed By: #### G IPANEL #### [facility] [address] [place] [address] Dr. Tomasa Ley Y. Enterocolitica Not detected Normal NOT DETECTED [facility] Comment on above: Performed By: #### G IPANEL #### [facility] [address] [place] [address] Dr. Tomasa Ley US PELVIS AND TRANSVAGon [...] VINAY BURROUGHS Date: 2021-11-12 19:43 Normal [facility] AMYLASEon 10-28-2021 Amylase [Catalytic activity/Vol] 36 U/L Normal 25-115 [facility] Comment on above: Performed By: #### C BC #### [facility] [address] [place] [address] Dr. Tomasa Ley CBC AUTO DIFFon 10-28-2021 BASO # 0.0 103/ul Normal 0.0-0.1 [facility] Comment on above: Performed By: #### C BC #### [facility] [address] [place] [address] Dr. Tomasa Ley Basophils/100 WBC (Bld) 0.4 % Normal 0.2-2.0 [facility] Comment on above: Performed By: #### C BC #### [facility] [address] [place] [address] Dr. Tomasa Ley EO # 0.1 103/ul Normal 0.0-0.7 [facility] Comment on above: Performed By: #### C BC #### [facility] [address] [place] [address] Dr. Tomasa Ley Eosinophils/100 WBC (Bld) 0.6 % Critically low 0.9-7.0 [facility] Comment on above: Performed By: #### C BC #### [facility] [address] [place] [address] Dr. Tomasa Ley Erythrocyte distribution width (RBC) [Ratio] 15.2 % Critically high 11.0-15.0 [facility] Comment on above: Performed By: #### C BC #### [facility] [address] [place] [address] Dr. Tomasa Ley Hematocrit (Bld) [Volume fraction] 45.1 % Normal 36.0-48.0 [facility] Comment on above: Performed By: #### C BC #### [facility] [address] [place] [address] Dr. Tomasa Ley Hemoglobin (Bld) [Mass/Vol] 14.2 g/dL Normal 12.0-16.0 [facility] Comment on above: Performed By: #### C BC #### [facility] [address] [place] [address] Dr. Tomasa Ley IG # 0.02 10e3/ul Normal 0.00-0.03 [facility] Comment on above: Performed By: #### C BC #### [facility] [address] [place] [address] Dr. Tomasa Ley IG % 0.3 % Normal 0.0-0.5 [facility] Comment on above: Performed By: #### C BC #### [facility] [address] [place] [address] Dr. Tomasa Ley LYMPH # 1.6 103/ul Normal 1.2-3.8 [facility] Comment on above: Performed By: #### C BC #### [facility] [address] [place] [address] Dr. Tomasa eLy Lymphocytes/100 WBC (Bld) 19.6 % Critically low 20.5-60.0 [facility] Comment on above: Performed By: #### C BC #### [facility] [address] [place] [address] Dr. Tomasa Ley MANUAL DIFF REQ NO Normal [facility] Comment on above: Performed By: #### C BC #### [facility] [address] [address] [address] Tomasa Ley MCH (RBC) [Entitic mass] 25.9 pg Critically low 26.7-34.0 [facility] Comment on above: Performed By: #### C BC #### [facility] [address] [place] [address] Dr. Tomasa Ley MCHC (RBC) [Mass/Vol] 31.5 g/dL Normal 29.9-35.2 [facility] Comment on above: Performed By: #### C BC #### [facility] [address] [place] [address] Dr. Tomasa Ley MCV (RBC) [Entitic vol] 82.1 fL Normal 81.0-99.0 [facility] Comment on above: Performed By: #### C BC #### [facility] [address] [place] [address] Dr. Tomasa Ley MONO # 0.6 103/ul Normal 0.3-0.8 [facility] Comment on above: Performed By: #### C BC #### [facility] [address] [place] [address] Dr. Tomasa Ley Monocytes/100 WBC (Bld) 7.5 % Normal 1.7-12.0 [facility] Comment on above: Performed By: #### C BC #### [facility] [address] [place] [address] Dr. Tomasa Ley NEUT # 5.7 103/ul Normal 1.4-6.5 [facility] Comment on above: Performed By: #### C BC #### [facility] [address] [place] [address] Dr. Tomasa Ley Neutrophils/100 WBC (Bld) 71.6 % Normal 43.0-75.0 [facility] Comment on above: Performed By: #### C BC #### [facility] [address] [place] [address] Dr. Tomasa Ley Platelet mean volume (Bld) [Entitic vol] 11.3 fL Normal 9.5-13.5 [facility] Comment on above: Performed By: #### C BC #### [facility] [address] [place], [place] [address] Dr. Tomasa Ley PLT 246 103/ul Normal 150-450 [facility] Comment on above: Performed By: #### C BC #### [facility] [address] [place], [place] [address] Dr. Tomasa Ley RBC 5.49 106/ul Critically high 4.20-5.40 [facility] Comment on above: Performed By: #### C BC #### [facility] [address] [place], [place] [address] Dr. Tomasa Ley WBC 8.0 103/ul Normal 4.0-11.0 [facility] Comment on above: Performed By: #### C BC #### [facility] [address] [place], [place] [address] ABD/PELVIS WO CONon [...] VINAY ALVAREZ Date: 2021-10-28 10:13 Normal [facility] CULTURE URINEon 10-28-2021 CULTURE URINE Culture Observations : NO GROWTH. Normal [facility] Comment on above: Performed By: #### P RINKU CHERRY, ERUR #### [facility] [address] [address] [address] Tomasa Ley ER URINE PROFILEon 2 Bilirubin Ql (U) Negative Normal NEGATIVE [facility] Comment on above: Performed By: #### U MICRO, ERUR #### [facility] [address] [address] [address] Tomasa Ley Clarity (U) CLEAR Normal CLEAR [facility] Comment on above: Performed By: #### U MICRO, ERUR #### [facility] [address] [address] [address] Tomasa Ley Color (U) LT. YELLOW Normal YELLOW [facility] Comment on above: Performed By: #### U MICRO, ERUR #### [facility] [address] [address] [address] Tomasa ESTEBAN A micrscopic examination will be performed if indicated. Normal [facility] Comment on above: Performed By: #### U MICRO, ERUR #### [facility] [address] [address] [address] Tomasa Ley Glucose Ql (U) Negative Normal NEGATIVE [facility] Comment on above: Performed By: #### U MICRO, ERUR #### [facility] [address] [address] [address] Tomasa Ley Hemoglobin Ql (U) Negative Normal NEGATIVE [facility] Comment on above: Performed By: #### U MICRO, ERUR #### [facility] [address] [address] [address] Tomasa Ley Ketones Ql (U) Negative Normal NEGATIVE [facility] Comment on above: Performed By: #### U MICRO, ERUR #### [facility] [address] [place] [address] Dr. Tomasa Ley LEUKOCYTES SMALL Abnormal NEGATIVE [facility] Comment on above: Performed By: #### U MICRO, ERUR #### [facility] [address] [address] [address] Tomasa Ley Nitrite Ql (U) Negative Normal NEGATIVE [facility] Comment on above: Performed By: #### U MICRO, ERUR #### [facility] [address] [address] [address] Tomasa Ley pH (U) 5.5 [pH] Normal 5-9 [facility] Comment on above: Performed By: #### U MICRO, ERUR #### [facility] [address] [address] [address] Tomasa Ley SPEC GRAVITY 1.020 Normal 1.005-<=1.025 [facility] Comment on above: Performed By: #### U MICRO, ERUR #### [facility] [address] [address] [address] Tomasa Ley UA PROTEIN Negative Normal NEGATIVE/ TRACE [facility] Comment on above: Performed By: #### U MICRO, ERUR #### [facility] [address] [place] [address] Dr. Tomasa Ley UR MICRO IND INDICATED Normal [facility] Comment on above: Performed By: #### U MICRO, ERUR #### [facility] [address] [place] [address] Dr. Tomasa Ley Urobilinogen Qn (U) 0.2 {Sly'U}/dL Normal 0.2 - 1. 0 [facility] Comment on above: Performed By: #### U MICRO, ERUR #### [facility] [address] [place] [address] Dr. Tomasa Ley LIPASEon 10-28-2021 Lipase [Catalytic activity/Vol] 142.0 U/L Normal 73.0-393.0 [facility] Comment on above: Performed By: #### C BC #### [facility] [address] [place] [address] Dr. Tomasa Ley PROF 14(COMP METB)on 022 Albumin [Mass/Vol] 3.9 g/dL Normal 3.4-5.0 [facility] Comment on above: Performed By: #### C BC #### [facility] [address] [place] [address] Dr. Tomasa Ley Albumin/Globulin [Mass ratio] 1.0 {ratio} Normal [facility] Comment on above: Performed By: #### C BC #### [facility] [address] [place] [address] Dr. Tomasa Ley ALP [Catalytic activity/Vol] 107 U/L Normal 46-116 [facility] Comment on above: Performed By: #### C BC #### [facility] [address] [place] [address] Dr. Tomasa Ley ALT [Catalytic activity/Vol] 24 U/L Normal 14-59 [facility] Comment on above: Performed By: #### C BC #### [facility] [address] [place] [address] Dr. Tomasa Ley Anion gap [Moles/Vol] 13.4 mmol/L Normal [facility] Comment on above: Performed By: #### C BC #### [facility] [address] [place] [address] Dr. Tomasa Ley AST [Catalytic activity/Vol] 18 U/L Normal 15-37 [facility] Comment on above: Performed By: #### C BC #### [facility] [address] [place] [address] Dr. Tomasa Ley Bilirubin [Mass/Vol] 0.2 mg/dL Normal 0.2-1.0 [facility] Comment on above: Performed By: #### C BC #### [facility] [address] [place] [address] Dr. Tomasa Ley Calcium [Mass/Vol] 8.8 mg/dL Normal 8.5-10.1 [facility] Comment on above: Performed By: #### C BC #### [facility] [address] [place] [address] Dr. Tomasa Ley Chloride [Moles/Vol] 103 mmol/L Normal 98-107 [facility] Comment on above: Performed By: #### C BC #### [facility] [address] [place] [address] Dr. Tomasa Ley CO2 [Moles/Vol] 27.6 mmol/L Normal 21.0-32.0 [facility] Comment on above: Performed By: #### C BC #### [facility] [facility] [address] [place] [address] Dr. Tomasa Ley Creatinine [Mass/Vol] 1.07 mg/dL Critically high 0.55-1.02 [facility] Comment on above: Performed By: #### C BC #### [facility] [address] [place] [address] Dr. Tomasa Ley EGFR-AF BELIZEAN >60 Normal >=60 [facility] Comment on above: Performed By: #### C BC #### [facility] [address] [place] [address] Dr. Tomasa Ley EGFR-NON AF BELIZEAN >60 Normal >=60 [facility] Comment on above: Performed By: #### C BC #### [facility] [address] [place] [address] Dr. Tomasa Ley Globulin (S) [Mass/Vol] 3.8 g/dL Normal [facility] Comment on above: Performed By: #### C BC #### [facility] [address] [place] [address] Dr. Tomasa Ley Glucose [Mass/Vol] 90 mg/dL Normal 74-106 [facility] Comment on above: Performed By: #### C BC #### [facility] [address] [place] [address] Dr. Tomasa Ley Potassium [Moles/Vol] 4.0 mmol/L Normal 3.5-5.1 [facility] Comment on above: Performed By: #### C BC #### [facility] [address] [place] [address] Dr. Tomasa Ley Protein [Mass/Vol] 7.7 g/dL Normal 6.4-8.2 [facility] Comment on above: Performed By: #### C BC #### [facility] [address] [place] [address] Dr. Tomasa Ley Sodium [Moles/Vol] 140 mmol/L Normal 136-145 [facility] Comment on above: Performed By: #### C BC #### [facility] [address] [place] [address] Dr. Tomasa eLy Urea nitrogen [Mass/Vol] 9.0 mg/dL Normal 7.0-18.0 [facility] Comment on above: Performed By: #### C BC #### [facility] [address] [place] [address] Dr. Tomasa Ley Urea nitrogen/Creatinine [Mass ratio] 8.4 mg/mg Normal [facility] Comment on above: Performed By: #### C BC #### [facility] [address] [place] [address] Dr. Tomasa Ley URINE MICROSCOPIC ONLYon BACTERIA SMALL Abnormal NONE SEEN [facility] Comment on above: Performed By: #### U MICRO, ERUR #### [facility] [address] [place] [address] Dr. Tomasa Ley Bacteria identified Cx Nom (U) INDICATED Normal [facility] Comment on above: Performed By: #### U MICRO, ERUR #### [facility] [address] [address] [address] Tomasa Ley CAST NONE SEEN Normal NONE SEEN [facility] Comment on above: Performed By: #### U MICRO, ERUR #### [facility] [address] [address] [address] Tomasa Ley Crystals LM Nom (Urine sed) NONE SEEN Normal NONE SEEN [facility] Comment on above: Performed By: #### U MICRO, ERUR #### [facility] [address] [address] [address] Tomasa Ley Epithelial cells LM Ql (Urine sed) MODERATE Abnormal NONE SEEN /RARE [facility] Comment on above: Performed By: #### U MICRO, ERUR #### [facility] [address] [place] [address] Dr. Tomasa Ley MUCOUS NONE SEEN Normal NONE SEEN [facility] Comment on above: Performed By: #### U MICRO, ERUR #### [facility] [address] [place] [address] Dr. Tomasa Ley RBC 2-5 Abnormal 0-2 [facility] Comment on above: Performed By: #### U MICRO, ERUR #### [facility] [address] [place] [address] Dr. Tomasa Ley WBC 5-10 Abnormal NONE SEEN [facility] Comment on above: Performed By: #### U MICRO, ERUR #### [facility] [address] [place] [address] Dr. Tomasa Ley NM HEPATOBILIARY SCAN W [...] by: PATTY MATHEW Date: 2021-07-20 11:49 Normal [facility] Physician Referralon 022 Physician Referral [id number] Normal [facility] AMYLASEon 07-12-2021 Amylase [Catalytic activity/Vol] 35 U/L Normal 31-110 [facility] Comment on above: Performed By: #### C BC #### [facility] [address] [place] [address] Dr. Tomasa Ley CBC AUTO DIFFon 07-12-2021 BASO # 0.0 103/ul Normal 0.0-0.1 [facility] Comment on above: Performed By: #### C BC #### [facility] [address] [place] [address] Dr. Tomasa Ley Basophils/100 WBC (Bld) 0.5 % Normal 0.2-2.0 [facility] Comment on above: Performed By: #### C BC #### [facility] [address] [place] [address] Dr. Tomasa Ley EO # 0.1 103/ul Normal 0.0-0.7 [facility] Comment on above: Performed By: #### C BC #### [facility] [address] [place] [address] Dr. Tomasa Ley Eosinophils/100 WBC (Bld) 1.1 % Normal 0.9-7.0 [facility] Comment on above: Performed By: #### C BC #### [facility] [address] [place] [address] Dr. Tomasa Ley Erythrocyte distribution width (RBC) [Ratio] 16.2 % Critically high 11.0-15.0 [facility] Comment on above: Performed By: #### C BC #### [facility] [address] [place] [address] Dr. Tomasa Ley Hematocrit (Bld) [Volume fraction] 43.6 % Normal 36.0-48.0 [facility] Comment on above: Performed By: #### C BC #### [facility] [address] [place] [address] Dr. Tomasa Ley Hemoglobin (Bld) [Mass/Vol] 14.2 g/dL Normal 12.0-16.0 [facility] Comment on above: Performed By: #### C BC #### [facility] [address] [place] [address] Dr. Tomasa Ley IG # 0.02 10e3/ul Normal 0.00-0.03 [facility] Comment on above: Performed By: #### C BC #### [facility] [address] [place] [address] Dr. Tomasa Ley IG % 0.3 % Normal 0.0-0.5 [facility] Comment on above: Performed By: #### C BC #### [facility] [address] [place] [address] Dr. Tomasa Ley LYMPH # 2.0 103/ul Normal 1.2-3.8 [facility] Comment on above: Performed By: #### C BC #### [facility] [address] [place] [address] Dr. Tomasa Ley Lymphocytes/100 WBC (Bld) 25.8 % Normal 20.5-60.0 [facility] Comment on above: Performed By: #### C BC #### [facility] [address] [place] [address] Dr. Tomasa Ley MANUAL DIFF REQ NO Normal [facility] Comment on above: Performed By: #### C BC #### [facility] [address] [place] [address] Dr. Tomasa Ley MCH (RBC) [Entitic mass] 26.6 pg Critically low 26.7-34.0 [facility] Comment on above: Performed By: #### C BC #### [facility] [address] [place] [address] Dr. Tomasa Ley MCHC (RBC) [Mass/Vol] 32.6 g/dL Normal 29.9-35.2 [facility] Comment on above: Performed By: #### C BC #### [facility] [address] [place] [address] Dr. Tomasa Ley MCV (RBC) [Entitic vol] 81.6 fL Normal 81.0-99.0 [facility] Comment on above: Performed By: #### C BC #### [facility] [address] [place] [address] Dr. Tomasa Ley MONO # 0.7 103/ul Normal 0.3-0.8 [facility] Comment on above: Performed By: #### C BC #### [facility] [address] [place] [address] Dr. Tomasa Ley Monocytes/100 WBC (Bld) 9.1 % Normal 1.7-12.0 [facility] Comment on above: Performed By: #### C BC #### [facility] [address] [place] [address] Dr. Tomasa Ley NEUT # 5.0 103/ul Normal 1.4-6.5 [facility] Comment on above: Performed By: #### C BC #### [facility] [address] [place] [address] Dr. Tomasa Ley Neutrophils/100 WBC (Bld) 63.2 % Normal 43.0-75.0 [facility] Comment on above: Performed By: #### C BC #### [facility] [address] [place] [address] Dr. Tomasa Ley Platelet mean volume (Bld) [Entitic vol] 11.0 fL Normal 9.5-13.5 [facility] Comment on above: Performed By: #### C BC #### [facility] [address] [place] [address] Dr. Tomasa Ley PLT 236 103/ul Normal 150-450 [facility] Comment on above: Performed By: #### C BC #### [facility] [address] [place] [address] Dr. Tomasa Ley RBC 5.34 106/ul Normal 4.20-5.40 [facility] Comment on above: Performed By: #### C BC #### [facility] [address] [place] [address] Dr. Tomasa Ley WBC 7.9 103/ul Normal 4.0-11.0 [facility] Comment on above: Performed By: #### C BC #### [facility] [address] [address] [address] Tomasa Ley ER URINE PROFILEon 2 Bilirubin Ql (U) Negative Normal NEGATIVE [facility] Comment on above: Performed By: #### P REGU, UMICRO, ERUR #### [facility] [address] [place] [address] Dr. Tomasa Ley Clarity (U) CLEAR Normal CLEAR [facility] Comment on above: Performed By: #### P REGU, UMICRO, ERUR #### [facility] [address] [place] [address] Dr. Tomasa Ley Color (U) LT. YELLOW Normal YELLOW [facility] Comment on above: Performed By: #### P REGU, UMICRO, ERUR #### [facility] [address] [place] [address] Dr. Tomasa ESTEBAN A micrscopic examination will be performed if indicated. Normal [facility] Comment on above: Performed By: #### P REGU, UMICRO, ERUR #### [facility] [address] [place] [address] Dr. Tomasa Ley Glucose Ql (U) Negative Normal NEGATIVE [facility] Comment on above: Performed By: #### P REGU, UMICRO, ERUR #### [facility] [address] [address] [address] Tomasa Ley Hemoglobin Ql (U) TRACE-INTACT Abnormal NEGATIVE [place] Comment on above: Performed By: #### P REGU, UMICRO, ERUR #### [facility] [address] [place] [address] Dr. Tomasa Ley Ketones Ql (U) Negative Normal NEGATIVE [facility] Comment on above: Performed By: #### P REGU, UMICRO, ERUR #### [facility] [address] [address] [address] Tomasa Ley LEUKOCYTES Negative Normal NEGATIVE [facility] Comment on above: Performed By: #### P REGU, UMICRO, ERUR #### [facility] [address] [address] [address] Tomasa Ley Nitrite Ql (U) Negative Normal NEGATIVE [facility] Comment on above: Performed By: #### P REGU, UMICRO, ERUR #### [facility] [address] [address] [address] Tomasa Ley pH (U) 5.5 [pH] Normal 5-9 [facility] Comment on above: Performed By: #### P REGU, UMICRO, ERUR #### [facility] [address] [place] [address] Dr. Tomasa Ley SPEC GRAVITY >=1.030 Abnormal 1.005-<=1.025 [facility] Comment on above: Performed By: #### P REGU, UMICRO, ERUR #### [facility] [address] [address] [address] Tomasa Ley UA PROTEIN Negative Normal NEGATIVE/ TRACE [facility] Comment on above: Performed By: #### P REGU, UMICRO, ERUR #### [facility] [address] [address] [address] Tomasa Ley UR MICRO IND INDICATED Normal [facility] Comment on above: Performed By: #### P REGU, UMICRO, ERUR #### [facility] [address] [address] [address] Tomasa Ley Urobilinogen Qn (U) 0.2 {Sly'U}/dL Normal 0.2 - 1. 0 [facility] Comment on above: Performed By: #### P REGU, UMICRO, ERUR #### [facility] [address] [address] [address] Tomasa Ley LIPASEon 07-12-2021 Lipase [Catalytic activity/Vol] 140.0 U/L Normal 23.0-300.0 [facility] Comment on above: Performed By: #### C BC #### [facility] [address] [place] [address] Dr. Tomasa Ley URon 07-12-2021 , QUAL Negative Normal NEGATIVE [facility] Comment on above: Performed By: #### P REGU, UMICRO, ERUR #### [facility] [address] [place] [address] Dr. Tomasa Ley PROF 14(COMP METB)on 022 Albumin [Mass/Vol] 3.9 g/dL Normal 3.5-5.0 [facility] Comment on above: Performed By: #### C BC #### [facility] [address] [place] [address] Dr. Tomasa Ley Albumin/Globulin [Mass ratio] 1.0 {ratio} Normal [facility] Comment on above: Performed By: #### C BC #### [facility] [address] [place] [address] Dr. Tomasa Ley ALP [Catalytic activity/Vol] 102 U/L Normal 38-126 [facility] Comment on above: Performed By: #### C BC #### [facility] [address] [place] [address] Dr. Tomasa eLy ALT [Catalytic activity/Vol] 15 U/L Normal 9-52 [facility] Comment on above: Performed By: #### C BC #### [facility] [address] [place] [address] Dr. Tomasa Ley Anion gap [Moles/Vol] 12.3 mmol/L Normal [facility] Comment on above: Performed By: #### C BC #### [facility] [address] [place] [address] Dr. Tomasa Ley AST [Catalytic activity/Vol] 14 U/L Normal 14-36 [facility] Comment on above: Performed By: #### C BC #### [facility] [address] [place] [address] Dr. Tomasa Ley Bilirubin [Mass/Vol] 0.3 mg/dL Normal 0.2-1.3 [facility] Comment on above: Performed By: #### C BC #### [facility] [address] [place] [address] Dr. Tomasa Ley Calcium [Mass/Vol] 8.8 mg/dL Normal 8.4-10.2 [facility] Comment on above: Performed By: #### C BC #### [facility] [address] [address] [address] Tomasa Ley Chloride [Moles/Vol] 103 mmol/L Normal 98-107 [facility] Comment on above: Performed By: #### C BC #### [facility] [address] [place] [address] Dr. Tomasa Ley CO2 [Moles/Vol] 25.5 mmol/L Normal 22.0-30.0 [facility] Comment on above: Performed By: #### C BC #### [facility] [address] [place] [address] Dr. Tomasa Ley Creatinine [Mass/Vol] 1.01 mg/dL Normal 0.52-1.04 [facility] Comment on above: Performed By: #### C BC #### [facility] [address] [place] [address] Dr. Tomasa Ley EGFR-AF BELIZEAN 60 mL/min/1.73m2 Normal >=60 [facility] Comment on above: Performed By: #### C BC #### [facility] [address] [place] [address] Dr. Tomasa Ley EGFR-NON AF BELIZEAN 60 mL/min/1.73m2 Normal >=60 [facility] Comment on above: Performed By: #### C BC #### [facility] [address] [place] [address] Dr. Tomasa Ley Globulin (S) [Mass/Vol] 3.8 g/dL Normal [facility] Comment on above: Performed By: #### C BC #### [facility] [address] [address] [address] Tomasa Ley Glucose [Mass/Vol] 95 mg/dL Normal 74-106 [facility] Comment on above: Performed By: #### C BC #### [facility] [address] [address] [address] Tomasa Ley Potassium [Moles/Vol] 3.8 mmol/L Normal 3.4-5.0 [facility] Comment on above: Performed By: #### C BC #### [facility] [address] [address] [address] Tomasa Ley Protein [Mass/Vol] 7.7 g/dL Normal 6.1-8.2 [facility] Comment on above: Performed By: #### C BC #### [facility] [address] [address] [address] Tomasa Ley Sodium [Moles/Vol] 137 mmol/L Normal 137-145 [facility] Comment on above: Performed By: #### C BC #### [facility] [address] [place] [address] Dr. Tomasa Ley Urea nitrogen [Mass/Vol] 16.0 mg/dL Normal 7.0-17.0 [facility] Comment on above: Performed By: #### C BC #### [facility] [address] [place] [address] Dr. Tomasa Ley Urea nitrogen/Creatinine [Mass ratio] 15.8 mg/mg Normal [facility] Comment on above: Performed By: #### C BC #### [facility] [address] [address] [address] Tomasa Ley URINE MICROSCOPIC ONLYon BACTERIA NONE SEEN Normal NONE SEEN [facility] Comment on above: Performed By: #### P RINKU CHERRY ERUR #### [facility] [address] [address] [address] Tomasa Ley Bacteria identified Cx Nom (U) NOT INDICATED Normal [facility] Comment on above: Performed By: #### P RINKU CHERRY, ERUR #### [facility] [address] [address] [address] Tomasa Ley CAST NONE SEEN Normal NONE SEEN [facility] Comment on above: Performed By: #### P REGU, UMICRO, ERUR #### [facility] [address] [address] [address] Tomasa Ley Crystals LM Nom (Urine sed) NONE SEEN Normal NONE SEEN [facility] Comment on above: Performed By: #### P REGU, UMICRO, ERUR #### [facility] [address] [address] [address] Tomasa Ley Epithelial cells LM Ql (Urine sed) MODERATE Abnormal NONE SEEN /RARE [facility] Comment on above: Performed By: #### P REGU, UMICRO, ERUR #### [facility] [address] [address] [address] Tomasa Ley MUCOUS SMALL Abnormal NONE SEEN [facility] Comment on above: Performed By: #### P REGU, UMICRO, ERUR #### [facility] [address] [address] [address] Tomasa Ley RBC 5-10 Abnormal 0-2 [facility] Comment on above: Performed By: #### P REGU, UMICRO, ERUR #### [facility] [address] [address] [address] Tomasa Ley WBC NONE SEEN Normal NONE SEEN [facility] Comment on above: Performed By: #### P REGU, UMICRO, ERUR #### [facility] [address] [address] [address] Tomasa Ley US SINGLE QUAD RT [...] PATTY MATHEW Date: 2021-07-12 09:45 Normal [facility] CBC AUTO DIFFon 12-23-2020 BASO # 0.1 103/ul Normal 0.0-0.1 [facility] Comment on above: Performed By: #### C BC #### [facility] [address] [address] [address] Tomasa Ley Basophils/100 WBC (Bld) 0.7 % Normal 0.2-2.0 [facility] Comment on above: Performed By: #### C BC #### [facility] [address] [place] [address] Dr. Tomasa Ley EO # 0.1 103/ul Normal 0.0-0.7 [facility] Comment on above: Performed By: #### C BC #### [facility] [address] [place] [address] Dr. Tomasa Ley Eosinophils/100 WBC (Bld) 1.6 % Normal 0.9-7.0 [facility] Comment on above: Performed By: #### C BC #### [facility] [address] [place] [address] Dr. Tomasa Ley Erythrocyte distribution width (RBC) [Ratio] 16.4 % Critically high 11.0-15.0 [facility] Comment on above: Performed By: #### C BC #### [facility] [address] [place] [address] Dr. Tomasa Ley Hematocrit (Bld) [Volume fraction] 41.7 % Normal 36.0-48.0 [facility] Comment on above: Performed By: #### C BC #### [facility] [address] [place] [address] Dr. Tomasa Ley Hemoglobin (Bld) [Mass/Vol] 13.1 g/dL Normal 12.0-16.0 [facility] Comment on above: Performed By: #### C BC #### [facility] [address] [place] [address] Dr. Tomasa Ley IG # 0.01 10e3/ul Normal 0.00-0.03 [facility] Comment on above: Performed By: #### C BC #### [facility] [address] [place] [address] Dr. Tomasa Ley IG % 0.1 % Normal 0.0-0.5 [facility] Comment on above: Performed By: #### C BC #### [facility] [address] [place] [address] Dr. Tomasa Ley LYMPH # 1.9 103/ul Normal 1.2-3.8 [facility] Comment on above: Performed By: #### C BC #### [facility] [address] [place] [address] Dr. Tomasa Ley Lymphocytes/100 WBC (Bld) 25.6 % Normal 20.5-60.0 [facility] Comment on above: Performed By: #### C BC #### [facility] [address] [place] [address] Dr. Tomasa Ley MANUAL DIFF REQ NO Normal [facility] Comment on above: Performed By: #### C BC #### [facility] [address] [place] [address] Dr. Tomasa Ley MCH (RBC) [Entitic mass] 25.4 pg Critically low 26.7-34.0 [facility] Comment on above: Performed By: #### C BC #### [facility] [address] [place] [address] Dr. Tomasa Ley MCHC (RBC) [Mass/Vol] 31.4 g/dL Normal 29.9-35.2 [facility] Comment on above: Performed By: #### C BC #### [facility] [address] [place] [address] Dr. Tomasa Ley MCV (RBC) [Entitic vol] 80.8 fL Critically low 81.0-99.0 [facility] Comment on above: Performed By: #### C BC #### [facility] [address] [place] [address] Dr. Tomasa Ley MONO # 0.7 103/ul Normal 0.3-0.8 [facility] Comment on above: Performed By: #### C BC #### [facility] [address] [place] [address] Dr. Tomasa Ley Monocytes/100 WBC (Bld) 10.0 % Normal 1.7-12.0 [facility] Comment on above: Performed By: #### C BC #### [facility] [address] [place] [address] Dr. Tomasa Ley NEUT # 4.6 103/ul Normal 1.4-6.5 [facility] Comment on above: Performed By: #### C BC #### [facility] [address] [place] [address] Dr. Tomasa Ley Neutrophils/100 WBC (Bld) 62.0 % Normal 43.0-75.0 [facility] Comment on above: Performed By: #### C BC #### [facility] [address] [place] [address] Dr. Tomasa Ley Platelet mean volume (Bld) [Entitic vol] 11.5 fL Normal 9.5-13.5 [facility] Comment on above: Performed By: #### C BC #### [facility] [address] [place] [address] Dr. Tomasa Ley PLT 244 103/ul Normal 150-450 [facility] Comment on above: Performed By: #### C BC #### [facility] [address] [place] [address] Dr. Tomasa Ley RBC 5.16 106/ul Normal 4.20-5.40 [facility] Comment on above: Performed By: #### C BC #### [facility] [address] [place] [address] Dr. Tomasa Ley WBC 7.4 103/ul Normal 4.0-11.0 [facility] Comment on above: Performed By: #### C BC #### [facility] [address] [place] [address] Dr. Tomasa Ley CULTURE URINEon 12-23-2020 CULTURE URINE Culture Observations : NO GROWTH. Normal [facility] Comment on above: Performed By: #### C BC #### [facility] [address] [place] [address] Dr. Tomasa Ley PROF 14(COMP METB)on 021 Albumin [Mass/Vol] 3.7 g/dL Normal 3.5-5.0 [facility] Comment on above: Performed By: #### C BC #### [facility] [address] [place] [address] Dr. Tomasa Ley Albumin/Globulin [Mass ratio] 1.0 {ratio} Normal [facility] Comment on above: Performed By: #### C BC #### [facility] [address] [place] [address] Dr. Tomasa Ley ALP [Catalytic activity/Vol] 83 U/L Normal 38-126 [facility] Comment on above: Performed By: #### C BC #### [facility] [address] [place] [address] Dr. Tomasa Ley ALT [Catalytic activity/Vol] 23 U/L Normal 9-52 [facility] Comment on above: Performed By: #### C BC #### [facility] [address] [place] [address] Dr. Tomasa Ley Anion gap [Moles/Vol] 11.4 mmol/L Normal [facility] Comment on above: Performed By: #### C BC #### [facility] [address] [place] [address] Dr. Tomasa Ley AST [Catalytic activity/Vol] 19 U/L Normal 14-36 [facility] Comment on above: Performed By: #### C BC #### [facility] [address] [place] [address] Dr. Tomasa Ley Bilirubin [Mass/Vol] 0.3 mg/dL Normal 0.2-1.3 [facility] Comment on above: Performed By: #### C BC #### [facility] [address] [place] [address] Dr. Tomasa Ley Calcium [Mass/Vol] 8.4 mg/dL Normal 8.4-10.2 [facility] Comment on above: Performed By: #### C BC #### [facility] [address] [address] [address] Tomasa Ley Chloride [Moles/Vol] 101 mmol/L Normal 98-107 [facility] Comment on above: Performed By: #### C BC #### [facility] [address] [place] [address] Dr. Tomasa Ley CO2 [Moles/Vol] 29.4 mmol/L Normal 22.0-30.0 [facility] Comment on above: Performed By: #### C BC #### [facility] [address] [place] [address] Dr. Tomasa Ley Creatinine [Mass/Vol] 1.03 mg/dL Normal 0.52-1.04 [facility] Comment on above: Performed By: #### C BC #### [facility] [address] [place] [address] Dr. Tomasa Ley EGFR-AF BELIZEAN >60 Normal >=60 [facility] Comment on above: Performed By: #### C BC #### [facility] [address] [place] [address] Dr. Tomasa Ley EGFR-NON AF BELIZEAN >60 Normal >=60 [facility] Comment on above: Performed By: #### C BC #### [facility] [address] [place] [address] Dr. Tomasa Ley Globulin (S) [Mass/Vol] 3.6 g/dL Normal [facility] Comment on above: Performed By: #### C BC #### [facility] [address] [place] [address] Dr. Tomasa Ley Glucose [Mass/Vol] 85 mg/dL Normal 74-106 [facility] Comment on above: Performed By: #### C BC #### [facility] [address] [place] [address] Dr. Tomasa Ley Potassium [Moles/Vol] 3.8 mmol/L Normal 3.4-5.0 [facility] Comment on above: Performed By: #### C BC #### [facility] [address] [place] [address] Dr. Tomasa Ley Protein [Mass/Vol] 7.3 g/dL Normal 6.1-8.2 [facility] Comment on above: Performed By: #### C BC #### [facility] [address] [place] [address] Dr. Tomasa Ley Sodium [Moles/Vol] 138 mmol/L Normal 137-145 [facility] Comment on above: Performed By: #### C BC #### [facility] [address] [place] [address] Dr. Tomasa Ley Urea nitrogen [Mass/Vol] 9.0 mg/dL Normal 7.0-17.0 [facility] Comment on above: Performed By: #### C BC #### [facility] [address] [place] [address] Dr. Tomasa Ley Urea nitrogen/Creatinine [Mass ratio] 8.7 mg/mg Normal [facility] Comment on above: Performed By: #### C BC #### [facility] [address] [place] [address] Dr. Tomasa Ley UA RANDOMon 12-23-2020 Bilirubin Ql (U) Negative Normal NEGATIVE [facility] Comment on above: Performed By: #### U A #### [facility] [address] [place] [address] Cedrick Kathleen Clarity (U) CLEAR Normal CLEAR [facility] Comment on above: Performed By: #### U A #### [facility] [address] [place] [address] Cedrick Kathleen Color (U) LT. YELLOW Normal YELLOW [facility] Comment on above: Performed By: #### U A #### [facility] [address] [place] [address] Cedrick Kathleen Glucose Ql (U) Negative Normal NEGATIVE [facility] Comment on above: Performed By: #### U A #### [facility] [address] [place] [address] Cedrick Kathleen Hemoglobin Ql (U) Negative Normal NEGATIVE [facility] Comment on above: Performed By: #### U A #### [facility] [address] [address] Cedrick Kathleen Ketones Ql (U) Negative Normal NEGATIVE [facility] Comment on above: Performed By: #### U A #### [facility] [address] [place], [place] [id number] Cedrick Kathleen LEUKOCYTES Negative Normal NEGATIVE [facility] Comment on above: Performed By: #### U A #### [facility] [address] [place], [place] [id number] Cedrick Kathleen Nitrite Ql (U) Negative Normal NEGATIVE [facility] Comment on above: Performed By: #### U A #### [facility] [address] [place], [place] [id number] Cedrick Kathleen pH (U) 5.5 [pH] Normal 5-9 [facility] Comment on above: Performed By: #### U A #### [facility] [address] [place] [address] Cedrick Wang SPEC GRAVITY <=1.005 Abnormal 1.005-<=1.025 [facility] Comment on above: Performed By: #### U A #### [facility] [address] [place], [place] [id number] Cedrick Kathleen UA PROTEIN Negative Normal NEGATIVE/ TRACE [facility] Comment on above: Performed By: #### U A #### [facility] [address] [place], [place] [address] Cedrick Wang Urobilinogen Qn (U) 0.2 {Sly'U}/dL Normal 0.2 - 1. 0 [facility] Comment on above: Performed By: #### U A #### [facility] [address] [place], [place] [address] Cedrick Kathleen US KIDNEYS BLADDERon 021 US [...] by: JABIER ALSTON Date: 2020-12-23 15:06 Normal [facility] Vital Signs Date Time Vital Sign Value Performing Clinician Facility 05-04-2024 08:03-0500 Body mass index (BMI) [Ratio] 34.11 kg/m2 Sabrina Head [employer] SUPER[employer] Work Phone: [facility] 05-04-2024 08:03-0500 Body weight 92.99 kg Sabrina Head [employer]CH SUPERVISOR Work Phone: [facility] 05-04-2024 08:03-0500 Diastolic blood pressure 74 mm[Hg] Sabrina Head [employer] SUPERVISOR Work Phone: [facility] 05-04-2024 08:03-0500 Heart rate 53 /min Sabrina Head [employer]AN[employer] SUPERVISOR Work Phone: [facility] 05-04-2024 08:03-0500 Systolic blood pressure 110 mm[Hg] Sabrina Head [employer]ANCH SUPERVISOR Work Phone: [facility] 02-09-2023 13:45-0400 Body height 158.12 cm Elin Bryan Other [employer] Other 02-09-2023 13:45-0400 Body mass index (BMI) [Ratio] 37.19 kg/m2 Elin Bryan Other [employer] Other 02-09-2023 13:45-0400 Body temperature 98.1 [degF] Elin Bryan Other [employer] Other 02-09-2023 13:45-0400 Body weight 92.99 kg Elin Bryan Other [employer] Other 02-09-2023 13:45-0400 Respiratory rate 18 /min Elin Bryan Other [employer] Other 02-09-2023 13:45-0400 SaO2% (BldA) [Mass fraction] 98 % Elin Randi Other [employer] Other Encounters Encounter Date Encounter Type Care Provider Facility Start: 05-18-2024 End: 05-18-2024 Telephone encounter Sabrina Head RANCH SUPERVISOR Work Phone: [facility] Comment on above: Advice Only Start: 05-10-2024 End: 05-10-2024 Telephone encounter Lori Blackwell SANE NURSE [facility] Comment on above: Medication Problem Start: 05-04-2024 End: 05-04-2024 Bamboo flowsheet Sabrina Head RANCH SUPERVISOR Work Phone: [facility] Start: 05-04-2024 End: 05-04-2024 Bamboo flowsheet Sabrina Head RANCH SUPERVISOR Work Phone: [facility] Start: 05-04-2024 End: 05-04-2024 Office outpatient new 60 minutes Sabrina Head RANCH SUPERVISOR Work Phone: [facility] Comment on above: [...] encounter procedure MD Lydia San Work Phone: [facility] Work Phone: Start: 02-09-2023 End: 10-08-2023 ambulatory MD Lydia San Work Phone: [facility] [employer] Other Start: 02-09-2023 Office outpatient visit 15 minutes Elin Bryan [facility] Start: 09-10-2022 ambulatory Rob Tejada acility:[facility] Start: 12-08-2021 End: 12-08-[address] [...] ice Visit [facility] [address] [facility] [address] [place] [address] Sabrina Head NP [address] [facility] [address] [place] [address] [facility] Start: 06-09-2024 End: 06-09-2024 Patient encounter procedure 06/09/2024 9:30 AM EST Off ice Visit [facility] [address] [facility] [address] [place] [address] Sabrina Head, CONY [address] [facility] [address] [place] [address] [facility] Start: 05-04-2024 End: 05-04-2024 Patient encounter procedure 05/04/2024 8:00 AM EST Off ice Visit [facility] [address] [facility] [address] [place] [address] Sabrina Head NP [address] [facility] [address] [place] [address] Arrived [facility] Comment on above: Arrived Immunizations Immunization Date Immunization Notes Care Provider Fa cility 07-11-2018 tetanus toxoid, reduced diphtheria toxoid, and acellular pertussis vaccine, adsorbed MD Lydia San Work Phone: [facility] 04-10-2011 human papilloma viru s vaccine, quadrivalent Elin Bryan Other [employer] Other Payers Date Payer Category Payer Self-pay [id number] 2021 [facility] [id number] 1992 Unknown [id number]. 593 1992 Unknown [id number] 06.20.840.1.516698.3.579.2. 593 1992 Unknown [id number] 2.16.840.1.167197.3.579.2. 593 1992 Unknown [id number] 2.16.840.1.537304.3.579.2. 593 1992 Unknown [id number] 2.16.840.1.706312.3.579.2. 593 1992 Unknown [id number] 2.16.840.1.073442.3.579.2. 593 1992 Unknown [id number] 2.16.840.1.632868.3.579.2. 1259 1992 Unknown [id number] 2.16.840.1.377987.3.579.2. 1259 1992 Unknown [id number] 2.16.840.1.047020.3.579.2. 1259 1992 Unknown [id number] 2.16.840.1.613636.3.579.2. 1259 1992 Unknown [id number] 2.16.840.1.139532.3.579.2. 1259 1959 Private Health Insurance [id number] 1959 Private Health Insurance [id number] 1959 Unknown [id number] 1959 Unknown [id number] Medicaid Medicaid [id number] Private Health Insurance [facility] [id number] Unknown MMO [id number] Unknown [id number] 2.16.840.1.474638.3.579.2. 531 Unknown [id number] 2.16840.1.525935.3.579.2. 531 Social History Date Type Detail Facility Unknown if ever smoked [employer] Other Start: 09-15-2023 End: 05-04-2024 Sex Assigned At [facility] [employer] Other Start: 07-20-2021 End: 09-15-2023 Tobacco smoking status NHIS Never smoked tobacco (finding) [facility] Start: 1990 Sex Assigned At Female F [facility] Start: 09-15-2023 Tobacco use and exposure [...] to give her medication time to work. [facility] 05-18-2024 Miscellaneous Notes Formattin g of [...] scheduled for 06/09/24. documented in this encounter [facility] 05-18-2024 Telephone encount er Note Patient [...] has a follow up scheduled for 06/09/24. [facility] 05-10-2024 Telephone encount er Note Order for Remeron sent. [facility] 05-10-2024 Miscellaneous Notes Formattin g of [...] to appt. Would like remeron sent to [facility] Patients Kahlil came in office for [...] from his appt. documented in this encounter [facility] 05-10-2024 Telephone encount er Note Contacted [...] to appt. Would like remeron sent to [facility] 05-10-2024 Telephone encount er Note Patients [...] on his way out from his appt. [facility] 05-04-2024 History of Presen t illness Narrative Images from the original note were not included. Lindsay Montilla is a 33 y.o. 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 Patient was referred by [facility]. Rosemarie, who is her behavioral health case manager from [facility], is here today for additional support. HPI: Reason for visit: Lindsay Montilla has been experiencing problems with depression and anxiety for many years. She is here to discuss possible medication options to help her symptoms. Developmental History/Childhood: Raised primarily by bio mom between the [facility]. Patient reports being diagnosed with Wilm's tumor [...] of Behcet's syndrome and had seen an marker delivery in [place] previously. She states she has not seen [...] was with for 6 years. Education: Attended [employer] and obtained her high school diploma. Also attended some courses at [employer]. Legal history: Denies Family history of mental [...] current , Kahlil, for 10 years. 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 Children: 1 daughter (6 years old) Living situation: Lives in home with and their daughter. They have 3 dogs, a bird and a snake. Occupation: Unemployed for the past 5 years. 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 Patient was seen Face to Face, Total time spent with patient was 60 minutes, which includes reviewing chart documents, previous notes/records, counseling and discussion with patient and/or coordination of care as described above. documented in this encounter [facility] 02-09-2023 Evaluation note Encounter Date Diagnosis [...] middle finger, initial encounter (ICD-10 - S69.92XA) [employer] Other 08-01-2023 History general Narrative - Reported* Type Description Date Medical History autoimmune disorder Medical History hyperprolactinemia Medical History Wilms tumor, [place] Surgical History Removal of left kidney 1998 Surgical History GALL BLADDER 12/2022 Hospitalization History Removal of left kidney 1 999 Hospitalization History GALL BLADDER Hospitalization History 1 CHILD [employer] Other Evaluation noteNo assessment information available [facility] Work Phone: Evaluation note* Diagnosis Mild episode of recurrent major depressive disorder (HCC) (CMS/HCC) MYRANDA (generalized anxiety disorder) (CMS/HCC) Generalized anxiety disorder History of hyperprolactinemia Wilm's tumor (nephroblastoma), 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, so described [facility] Diagnosis Mild episode of recurrent major depressive disorder (HCC) (CMS/HCC) MYRANAD (generalized anxiety disorder) (CMS/HCC) Generalized anxiety disorder documented in this encounter [facility] Summary Purpose Family History No Family History Records FoundNo Family History Records FoundNo Family History Records FoundNo Family History Records Found Advance Directives Advance Directive Response Recorded Date/ Time Advance Directives No February 28, 2017 11:19am Additional Source Comments INFORMATION SOURCE (unrecogn ized section and content) DATE CREATED AUTHOR 07/14/2021 [facility] DATE CREATED AUTHOR AUTHOR'S ORGANIZ ATION 12/10/2021 [facility] DATE CREATED AUTHOR AUTHOR'S ORGANIZ ATION 02/14/2023 [facility] DATE CREATED AUTHOR AUTHOR'S ORGANIZ ATION 05/05/2024 [facility] EPIC REASON FOR VISIT (unrecogniz ed section and content) Reason Comments Psychiatric Evaluation NEDA referral Specialty Diagnoses / Procedures Referred By Contac t Referred To Contact Behavioral Health Diagnoses Insomnia, unspecified Procedures [place] [facility]UATION [employer] MANAGEMENT Lydia San MD [address] [place] [address] Phone: tel: fax: Sabrina Head NP [address] [address] Phone: tel: fax: Referral ID Status Reason Start Date Expiration Date Visits Re quested Visits Authorized [id number] Closed 04/19/2024 10/16/2024 1 1 Reason Onset Date Comments Medication Problem 05/10/2024 Reason Onset Date Comments Advice Only 05/18/2024 Care Teams (unrecognized sec tion and content) Team Status: Active Member Role Status Dates Lydia San MD Primary Care Provider Active Team Status: Inactive Member Role Status Dates Lydia San MD Primary Care Provider Active Elin Bryan APRN Attending Provider Active Veneer Sander Relationship Specialty Start Date End Date Lydia San MD [address] [place] [address] PCP - General Family Medicine 09/15/23 Veneer Sander Relationship Specialty Start Date End Date Lydia San MD [address] [place] [address] PCP - General Family Medicine 09/15/23 Sabrina Haed NP [address] [id number] Nurse Practitioner Behavioral Health 05/04/24 Veneer Sander Relationship Specialty Start Date End Date Lydia San MD [address] [place] [address] PCP - General Family Medicine 09/15/23 Sabrina Head NP 112 [facility] [address] [place] [address] Nurse Practitioner Behavioral Health 05/04/24 Veneer Sander Relationship Specialty Start Date End Date Lydia San MD [address] [place] [address] PCP - General Family Medicine 09/15/23 Sabrina Head NP [address] [id number] Nurse Practitioner Behavioral Health 05/04/24 Goals (unrecognized [...] BE BASED ON THE PRIMARY CLINICAL RECORDS. [employer] provides no warranty or guarantee of the accuracy or completeness of information in this document.
== END 2024-06-04 09:22 | disposition home or self-care (01) ==
LOC: US 09:21
PROVIDERS: PCP Family Medicine; Visit Provider Family Medicine
DX: N28.9 Disorder of kidney and ureter, unspecified (principal); N28.1 Cyst of kidney, acquired
CPT/HCPCS: 76770

== ENCOUNTER 2024-06-16 15:46 | Outpatient (OUT) | payer BC, SELFPAY ==
--- NOTE | 2024-06-16 15:51 | US_ITS ---
The [address] [address] Patient Name: GEMA MONTILLA MRN: [id number] date: 1990 Sex: F Assigned Patient Location: Current Patient Location: Accession/Order Number: [id number] Exam Date: 06/16/2024 16:06 Report Date: 06/17/2024 07:46 At the request of: LYDIA ESTRELLA Procedure: US venous doppler LE BI EXAMINATION: US venous doppler LE BI HISTORY: Leg Pain COMPARISON: No relevant comparison available. FINDINGS: REGION: Bilateral lower extremities THROMBI: None. COMPRESSIBILITY: Normal compressibility. FLOW: Normal waveform and antegrade flow between 5 and 20 cm/s. OTHER: None. US/US venous doppler LE BI IMPRESSION: 1. No deep vein thrombus within the right or left lower extremity. Electronically authenticated by: PATTY MATHEW Date: 06/17/2024 07:46
--- NOTE | 2024-06-16 16:05 | XR_ITS ---
The [address] [address] Patient Name: GEMA MONTILLA MRN: [id number] date: 1990 Sex: F Assigned Patient Location: US Current Patient Location: US Accession/Order Number: [id number] Exam Date: 06/16/2024 15:55 Report Date: 06/17/2024 10:19 At the request of: LYDIA ESTRELLA Procedure: XR lumbar spine min 4V EXAMINATION: XR lumbar spine min 4V HISTORY: Leg Pain ; low back pain radiating into lower extremities COMPARISON: No relevant comparison available. FINDINGS: BONES: No significant spondylosis, scoliosis, fracture, or visible bony lesion. DISC SPACES: No significant disc height narrowing, subluxation, or endplate abnormality. PARASPINOUS: Negative. No paraspinous abnormality is seen. OTHER: Negative. XR/XR lumbar spine min 4V IMPRESSION: 1. No appreciable acute abnormality or significant degenerative changes. Electronically authenticated by: PATTY MATHEW Date: 06/17/2024 10:19
--- OUTSIDE RECORDS SUMMARY | 2024-06-16 16:07 | XMS_ITS | CCD ---
Author Organization [facility] CliniSyvt Care Team Providers Care Metallographer Name Role Phone SAMEER, DR FREEMAN Admitting [...] DR FREEMAN Primary Care Unavailable HOPlacido, DR FREEAMN Consulting Unavailable ZIEBALEKSEY, DR PATTY Vu Consulting Unavailable Elin Bryan Unavailable MD Lydia San Primary Care Provider [phone] TETE Bryan Attending Provider Lydia San Primary Care Unavailable Elin Bryan Admitting Unavailable Elin Bryan Attending Unavailable Rob Coello Admitting Unavailab Rob Broderick Attending Unavailab le Lydia San Primary Care Unavailable Lydia San MD Primary Care Provider [phone] FER ROMAN Attending Unavailable ROMAN, PENOLA P Referring Unavailable FER ROMAN Referring Unavailable FER ROMAN Attending Unavailable FER ROMAN Attending Unavailable FER ROMAN Referring Unavailable SABRINA HEAD Attending Unavailable LYDIA SAN Referring Unavailable Sabrina Head NP Unavailable [phone] Allergies Allergy Classification Reported Allergen(s) Allergy Type Date of Onset Reaction(s) Facility (1 source) HYDROcodone Drug Allergy [facility] (5 sources) buPROPion Drug Allergy 4 Other [facility] Healthcare (5 sources) Escitalopram Drug Allergy 4 Other [facility] Healthcare (5 sources) Wound Dressing Adhesive Drug Intolerance 3 [facility] Medications Current Medications Medication [...] Discontinued (Side effects) 21 day ethinyl estradiol 0.691103 mg/hr / etonogestrel 0.005 mg/hr vaginal system [...] tablet 1 05/10/2024 05/18/2024 Discontinued (Side effects) Evart (No Known Home Meds) (1 source) Start: 07-20-2021 Evart (No Known Home Meds) Active July 20, [...] Drug Class(es) Dates Sig (Normalized) Sig (Original) [id number] 200 actuat albuterol 0.09 mg/actuat metered dose [...] 2018 1:00am July 20, 2021 4:10pm Vit 84-Svjb-Lftme-Dha ( + Dha) 28 mg iron- 975 mcg-200 mg Combo Pack (1 source) Start: 06-18-2018 End: 07-20-2021 Vit 12-Pmiv-Latcl-Dha ( + Dha) 28 mg iron- 975 [...] 3V*on 023 XR hand LT min 3V* [facility] [place] [address] XRay Report Signed Patient: Lindsay Montilla MR#: [id number] 0 : 1990 Acct:[id number] Age/Sex: 32 / F ADM Date: 02/09/23 Loc: XDUC Room: Type: [facility] Attending Dr: Elin Bryan APRN Copies [...] Kathleen Cheng M.D.02/09/2023 3:30 PM Dictation Location: [place] [address] Transcribed By: [facility] 02/09/23 1530 Dictated By: Kathleen Cheng MD 02/09/23 1529 Signed By: 02/09/23 153 Normal [facility] XR hand LT min 3V* [facility] Other XR hand LT min 3V* [facility] [employer] Other XR hand LT min 3V* [facility] Other XR hand LT min 3V* JOSE Velazquez [address] [place] [facility] Other XR hand LT min 3V* XRay Report [employer] Other XR hand LT min 3V* Signed [employer] Other XR hand LT min 3V* Patient: Lindsay Montilla MR#: [id number] [place] [employer] Other XR hand LT min 3V* 0 [employer] Other XR hand LT min 3V* : 1990 Acct:[id number] [employer] Other XR hand LT min 3V* Age/Sex: 32 / F ADM Date: 02/09/23 [employer] Other XR hand LT min 3V* Loc: XDUCLY Room: Type: [facility] [employer] Other XR hand LT min 3V* Attending Dr: Elin Bryan 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 Pain and swelling at the third and [employer] Other XR hand LT min 3V* fourth digits. No rt [employer] Other XR hand LT min 3V* COMPARISON: None [employer] Other XR hand LT min 3V* AP, lateral and oblique views were obtained. There is no evidence of fracture or dislocation. [employer] Other XR hand LT min 3V* There are no significant soft tissue abnormalities. [employer] Other XR hand LT min 3V* XR/XR hand LT min 3V* [employer] Other XR hand LT min 3V* IMPRESSION: [employer] Other XR hand LT min 3V* NO ACUTE BONY INJURY. [employer] Other XR hand LT min 3V* Impression dictated by: Kathleen Cheng M.D.02/09/2023 3:30 PM [employer] Other XR hand LT min 3V* Dictation Location: [place] [address] [employer] Other XR hand LT min 3V* Transcribed By: MARLA 02/09/23 1530 [employer] Other XR hand LT min 3V* Dictated By: Kathleen Cheng MD 02/09/23 1529 [employer] Other XR hand LT min 3V* Signed By: [employer] Other XR hand LT min 3V* 02/09/23 1530 Nor [employer] Other GI PANEL (PCR)on 12-08-2021 Adenovirus F 40/41 Not detected Normal NOT DETECTED [facility] Comment on above: Performed By: #### G IPANEL #### [facility] [address] [place] [address] [address] Tomasa Ley Astrovirus Not detected Normal NOT DETECTED [facility] Comment on above: Performed By: #### G IPANEL #### [facility] [address] [place] [address] Dr. Tomasa Ley C. Diff toxin A/B Not detected Normal NOT DETECTED [facility] Comment on above: Performed By: #### G IPANEL #### [facility] [address] [place] [address] [address] Tomasa Ley Campylobacter Not detected Normal NOT DETECTED [facility] Comment on above: Performed By: #### G IPANEL #### [facility] [address] [place] [address] Dr. Tomasa Ley Cryptosporidium Not detected Normal NOT DETECTED [facility] Comment on above: Performed By: #### G IPANEL #### [facility] [address] [place] [address] Dr. Tomasa Ley Cyclos. Cayetanensis Not detected Normal NOT DETECTED [facility] Comment on above: Performed By: #### G IPANEL #### [facility] [address] [place] [address] Dr. Tomasa Ley E. Coli O157 Not Applicable Normal Not Applicable [facility] Comment on above: Performed By: #### G IPANEL #### [facility] [address] [place] [address] Dr. Tomasa Ley E. histolytica Not detected Normal NOT DETECTED [facility] Comment on above: Performed By: #### G IPANEL #### [facility] [address] [place] [address] Dr. Tomasa Ley EAEC Not detected Normal NOT DETECTED [facility] Comment on above: Performed By: #### G IPANEL #### [facility] [address] [place] [address] Dr. Tomasa Ley EIEC Not detected Normal NOT DETECTED [facility] Comment on above: Performed By: #### G IPANEL #### [facility] [address] [place] [address] [address] Tomasa Ley EPEC Not detected Normal NOT DETECTED [facility] Comment on above: Performed By: #### G IPANEL #### [facility] [address] [place] [address] [address] Tomasa Ley ETEC Not detected Normal NOT DETECTED [facility] Comment on above: Performed By: #### G IPANEL #### [facility] [address] [place] [address] [address] Tomasa Zuñiga Lamblia Not detected Normal NOT DETECTED [facility] Comment on above: Performed By: #### G IPANEL #### [facility] [address] [place] [address] [address] Tomasa LOO CONTROLS PASSED Normal [facility] Comment on above: Performed By: #### G IPANEL #### [facility] [address] [place] [address] Dr. Tomasa SNYDER HEADER GI PANEL BACTERIA Normal [facility] Comment on above: Performed By: #### G IPANEL #### [facility] [address] [place] [address] [address] Tomasa RUCKER ECOLI GI PANEL DIARRHEAGENIC E.COLI / SHIGELLA Normal [facility] Comment on above: Performed By: #### G IPANEL #### [facility] [address] [place] [address] Dr. Tomasa RUCKER INFO SEE BELOW Normal [facility] Comment on above: Result Comment: EAEC - Enteroaggregative E. Coli EPEC- Enteropathogenic E. Coli ETEC- Enterotoxigenic E. Coli lt/st STEC- Shigella-like toxin-producing E. Coli stx1/stx2 EIEC- Shigella/Enteroinvasive E. Coli Performed By: #### G IPANEL #### [facility] [address] [place] [address] Dr. Tomasa RUCKER PARASITES GI PANEL PARASITES Normal [facility] Comment on above: Performed By: #### G IPANEL #### [facility] [address] [place] [address] [address] [facility] VIR[facility] Normal [facility] Comment on above: Performed By: #### G IPANEL #### [facility] [address] [place] [address] Dr. Tomasa Ley Norovirus GI/GII Not detected Normal NOT DETECTED [facility] Comment on above: Performed By: #### G IPANEL #### [facility] [address] [place] [address] Dr. Tomasa Ley P. Shigelloides Not detected Normal NOT DETECTED [facility] Comment on above: Performed By: #### G IPANEL #### [facility] [address] [place] [address] Dr. Tomasa Ley Rotavirus A Not detected Normal NOT DETECTED [facility] Comment on above: Performed By: #### G IPANEL #### [facility] [address] [place] [address] Dr. Tomasa Ley Salmonella Not detected Normal NOT DETECTED [facility] Comment on above: Performed By: #### G IPANEL #### [facility] [address] [place] [address] Dr. Tomasa Ley Sapovirus Not detected Normal NOT DETECTED [facility] Comment on above: Performed By: #### G IPANEL #### [facility] [address] [place] [address] Dr. Tomasa Ley STEC Not detected Normal NOT DETECTED [facility] Comment on above: Performed By: #### G IPANEL #### [facility] [address] [place] [address] Dr. Tomasa Ley Vibrio Not detected Normal NOT DETECTED [facility] Comment on above: Performed By: #### G IPANEL #### [facility] [address] [place] [address] Dr. Tomasa Ley Vibrio Cholera Not detected Normal NOT DETECTED [facility] Comment on above: Performed By: #### G IPANEL #### [facility] [address] [place] [address] Dr. Tomasa Ley Y. Enterocolitica Not detected Normal NOT DETECTED [facility] Comment on above: Performed By: #### G IPANEL #### [facility] [address] [place] [address] Dr. Tomasa Ley US PELVIS AND TRANSVAGon [...] VINAY BURROUGHS Date: 2021-11-12 19:43 Normal [facility] AMYLASEon 10-28-2021 Amylase [Catalytic activity/Vol] 36 U/L Normal 25-115 [facility] Comment on above: Performed By: #### C BC #### [facility] [address] [place] [address] Dr. Tomasa Ley CBC AUTO DIFFon 10-28-2021 BASO # 0.0 103/ul Normal 0.0-0.1 [facility] Comment on above: Performed By: #### C BC #### [facility] [address] [place] [address] Dr. Tomasa Ley Basophils/100 WBC (Bld) 0.4 % Normal 0.2-2.0 [facility] Comment on above: Performed By: #### C BC #### [facility] [address] [place] [address] Dr. Tomasa Ley EO # 0.1 103/ul Normal 0.0-0.7 [facility] Comment on above: Performed By: #### C BC #### [facility] [address] [place] [address] Dr. Tomasa Ley Eosinophils/100 WBC (Bld) 0.6 % Critically low 0.9-7.0 [facility] Comment on above: Performed By: #### C BC #### [facility] [address] [place] [address] Dr. Tomasa Ley Erythrocyte distribution width (RBC) [Ratio] 15.2 % Critically high 11.0-15.0 [facility] Comment on above: Performed By: #### C BC #### [facility] [address] [place] [address] Dr. Tomasa Ley Hematocrit (Bld) [Volume fraction] 45.1 % Normal 36.0-48.0 [facility] Comment on above: Performed By: #### C BC #### [facility] [address] [place] [address] Dr. Tomasa Ley Hemoglobin (Bld) [Mass/Vol] 14.2 g/dL Normal 12.0-16.0 [facility] Comment on above: Performed By: #### C BC #### [facility] [address] [place] [address] Dr. Tomasa Ley IG # 0.02 10e3/ul Normal 0.00-0.03 [facility] Comment on above: Performed By: #### C BC #### [facility] [address] [place] [address] Dr. Tomasa Ley IG % 0.3 % Normal 0.0-0.5 [facility] Comment on above: Performed By: #### C BC #### [facility] [address] [place] [address] Dr. Tomasa Lye LYMPH # 1.6 103/ul Normal 1.2-3.8 [facility] Comment on above: Performed By: #### C BC #### [facility] [address] [place] [address] Dr. Tomasa Ley Lymphocytes/100 WBC (Bld) 19.6 % Critically low 20.5-60.0 [facility] Comment on above: Performed By: #### C BC #### [facility] [address] [place] [address] Dr. Tomasa Ley MANUAL DIFF REQ NO Normal [facility] Comment on above: Performed By: #### C BC #### [facility] [address] [place] [address] [address] Tomasa Ley MCH (RBC) [Entitic mass] 25.9 pg Critically low 26.7-34.0 [facility] Comment on above: Performed By: #### C BC #### [facility] [address] [place] [address] Dr. Tomasa Ley MCHC (RBC) [Mass/Vol] 31.5 g/dL Normal 29.9-35.2 [facility] Comment on above: Performed By: #### C BC #### [facility] [address] [place] [address] Dr. Tomasa Ley MCV (RBC) [Entitic vol] 82.1 fL Normal 81.0-99.0 [facility] Comment on above: Performed By: #### C BC #### [facility] [address] [place] [address] Dr. Tomasa Ley MONO # 0.6 103/ul Normal 0.3-0.8 [facility] Comment on above: Performed By: #### C BC #### [facility] [address] [place] [address] Dr. Tomasa Ley Monocytes/100 WBC (Bld) 7.5 % Normal 1.7-12.0 [facility] Comment on above: Performed By: #### C BC #### [facility] [address] [place] [address] Dr. Tomasa Ley NEUT # 5.7 103/ul Normal 1.4-6.5 [facility] Comment on above: Performed By: #### C BC #### [facility] [address] [place] [address] Dr. Tomasa Ley Neutrophils/100 WBC (Bld) 71.6 % Normal 43.0-75.0 [facility] Comment on above: Performed By: #### C BC #### [facility] [address] [place] [address] Dr. Tomasa Ley Platelet mean volume (Bld) [Entitic vol] 11.3 fL Normal 9.5-13.5 [facility] Comment on above: Performed By: #### C BC #### [facility] [address] [place], [place] [address] Dr. Tomasa Ley PLT 246 103/ul Normal 150-450 [facility] Comment on above: Performed By: #### C BC #### [facility] [address] [place], [place] [address] Dr. Tomasa Ley RBC 5.49 106/ul Critically high 4.20-5.40 [facility] Comment on above: Performed By: #### C BC #### [facility] [address] [place], [place] [address] Dr. Tomasa Ley WBC 8.0 103/ul Normal 4.0-11.0 [facility] Comment on above: Performed By: #### C BC #### [facility] [address] [place], [place] [address] ABD/PELVIS WO CONon [...] VINAY ALVAREZ Date: 2021-10-28 10:13 Normal [facility] CULTURE URINEon 10-28-2021 CULTURE URINE Culture Observations : NO GROWTH. Normal [facility] Comment on above: Performed By: #### P RINKU CHERRY, ERUR #### [facility] [address] [address] [address] Tomasa Ley ER URINE PROFILEon 2 Bilirubin Ql (U) Negative Normal NEGATIVE [facility] Comment on above: Performed By: #### U MICRO, ERUR #### [facility] [address] [address] [address] Tomasa Ley Clarity (U) CLEAR Normal CLEAR [facility] Comment on above: Performed By: #### U MICRO, ERUR #### [facility] [address] [address] [address] Tomasa Ley Color (U) LT. YELLOW Normal YELLOW [facility] Comment on above: Performed By: #### U MICRO, ERUR #### [facility] [address] [address] [address] Tomasa ESTEBAN A micrscopic examination will be performed if indicated. Normal [facility] Comment on above: Performed By: #### U MICRO, ERUR #### [facility] [address] [address] [address] Tomasa Ley Glucose Ql (U) Negative Normal NEGATIVE [facility] Comment on above: Performed By: #### U MICRO, ERUR #### [facility] [address] [address] [address] Tomasa Ley Hemoglobin Ql (U) Negative Normal NEGATIVE [facility] Comment on above: Performed By: #### U MICRO, ERUR #### [facility] [address] [address] [address] Tomasa Ley Ketones Ql (U) Negative Normal NEGATIVE [facility] Comment on above: Performed By: #### U MICRO, ERUR #### [facility] [address] [place] [address] Dr. Tomasa Ley LEUKOCYTES SMALL Abnormal NEGATIVE [facility] Comment on above: Performed By: #### U MICRO, ERUR #### [facility] [address] [address] [address] Tomasa Ley Nitrite Ql (U) Negative Normal NEGATIVE [facility] Comment on above: Performed By: #### U MICRO, ERUR #### [facility] [address] [address] [address] Tomasa Ley pH (U) 5.5 [pH] Normal 5-9 [facility] Comment on above: Performed By: #### U MICRO, ERUR #### [facility] [address] [address] [address] Tomasa Ley SPEC GRAVITY 1.020 Normal 1.005-<=1.025 [facility] Comment on above: Performed By: #### U MICRO, ERUR #### [facility] [address] [address] [address] Tomasa Ley UA PROTEIN Negative Normal NEGATIVE/ TRACE [facility] Comment on above: Performed By: #### U MICRO, ERUR #### [facility] [address] [place] [address] Dr. Tomasa Ley UR MICRO IND INDICATED Normal [facility] Comment on above: Performed By: #### U MICRO, ERUR #### [facility] [address] [place] [address] Dr. Tomasa Ley Urobilinogen Qn (U) 0.2 {Sly'U}/dL Normal 0.2 - 1. 0 [facility] Comment on above: Performed By: #### U MICRO, ERUR #### [facility] [address] [place] [address] Dr. Tomasa Ley LIPASEon 10-28-2021 Lipase [Catalytic activity/Vol] 142.0 U/L Normal 73.0-393.0 [facility] Comment on above: Performed By: #### C BC #### [facility] [address] [place] [address] Dr. Tomasa Ley PROF 14(COMP METB)on 022 Albumin [Mass/Vol] 3.9 g/dL Normal 3.4-5.0 [facility] Comment on above: Performed By: #### C BC #### [facility] [address] [place] [address] Dr. Tomasa Ley Albumin/Globulin [Mass ratio] 1.0 {ratio} Normal [facility] Comment on above: Performed By: #### C BC #### [facility] [address] [place] [address] Dr. Tomasa Ley ALP [Catalytic activity/Vol] 107 U/L Normal 46-116 [facility] Comment on above: Performed By: #### C BC #### [facility] [address] [place] [address] Dr. Tomasa Ley ALT [Catalytic activity/Vol] 24 U/L Normal 14-59 [facility] Comment on above: Performed By: #### C BC #### [facility] [address] [place] [address] Dr. Tomasa Ley Anion gap [Moles/Vol] 13.4 mmol/L Normal [facility] Comment on above: Performed By: #### C BC #### [facility] [address] [place] [address] Dr. Tomasa Ley AST [Catalytic activity/Vol] 18 U/L Normal 15-37 [facility] Comment on above: Performed By: #### C BC #### [facility] [address] [place] [address] Dr. Tomasa Ley Bilirubin [Mass/Vol] 0.2 mg/dL Normal 0.2-1.0 [facility] Comment on above: Performed By: #### C BC #### [facility] [address] [place] [address] Dr. Tomasa Ley Calcium [Mass/Vol] 8.8 mg/dL Normal 8.5-10.1 [facility] Comment on above: Performed By: #### C BC #### [facility] [address] [place] [address] Dr. Tomasa Ley Chloride [Moles/Vol] 103 mmol/L Normal 98-107 [facility] Comment on above: Performed By: #### C BC #### [facility] [address] [place] [address] Dr. Tomasa Ley CO2 [Moles/Vol] 27.6 mmol/L Normal 21.0-32.0 [facility] Comment on above: Performed By: #### C BC #### [facility] [address] [place] [address] Dr. Tomasa Ley Creatinine [Mass/Vol] 1.07 mg/dL Critically high 0.55-1.02 [facility] Comment on above: Performed By: #### C BC #### [facility] [address] [place] [address] Dr. Tomasa Ley EGFR-AF MOROCCAN >60 Normal >=60 [facility] Comment on above: Performed By: #### C BC #### [facility] [address] [place] [address] Dr. Tomasa Ley EGFR-NON AF MOROCCAN >60 Normal >=60 [facility] Comment on above: Performed By: #### C BC #### [facility] [address] [place] [address] Dr. Tomasa Ley Globulin (S) [Mass/Vol] 3.8 g/dL Normal [facility] Comment on above: Performed By: #### C BC #### [facility] [address] [place] [address] Dr. Tomasa Ley Glucose [Mass/Vol] 90 mg/dL Normal 74-106 [facility] Comment on above: Performed By: #### C BC #### [facility] [address] [place] [address] Dr. Tomasa Ley Potassium [Moles/Vol] 4.0 mmol/L Normal 3.5-5.1 [facility] Comment on above: Performed By: #### C BC #### [facility] [address] [place] [address] Dr. Tomasa Ley Protein [Mass/Vol] 7.7 g/dL Normal 6.4-8.2 [facility] Comment on above: Performed By: #### C BC #### [facility] [address] [place] [address] Dr. Tomasa Ley Sodium [Moles/Vol] 140 mmol/L Normal 136-145 [facility] Comment on above: Performed By: #### C BC #### [facility] [address] [place] [address] Dr. Tomasa Ley Urea nitrogen [Mass/Vol] 9.0 mg/dL Normal 7.0-18.0 [facility] Comment on above: Performed By: #### C BC #### [facility] [address] [place] [address] Dr. Tomasa Ley Urea nitrogen/Creatinine [Mass ratio] 8.4 mg/mg Normal [facility] Comment on above: Performed By: #### C BC #### [facility] [address] [place] [address] Dr. Tomasa Ley URINE MICROSCOPIC ONLYon BACTERIA SMALL Abnormal NONE SEEN [facility] Comment on above: Performed By: #### U MICRO, ERUR #### [facility] [address] [place] [address] Dr. Tomasa Ley Bacteria identified Cx Nom (U) INDICATED Normal [facility] Comment on above: Performed By: #### U MICRO, ERUR #### [facility] [address] [address] [address] Tomasa Ley CAST NONE SEEN Normal NONE SEEN [facility] Comment on above: Performed By: #### U MICRO, ERUR #### [facility] [address] [address] [address] Tomasa Ley Crystals LM Nom (Urine sed) NONE SEEN Normal NONE SEEN [facility] Comment on above: Performed By: #### U MICRO, ERUR #### [facility] [address] [address] [address] Tomasa eLy Epithelial cells LM Ql (Urine sed) MODERATE Abnormal NONE SEEN /RARE [facility] Comment on above: Performed By: #### U MICRO, ERUR #### [facility] [address] [place] [address] Dr. Tomasa Ley MUCOUS NONE SEEN Normal NONE SEEN [facility] Comment on above: Performed By: #### U MICRO, ERUR #### [facility] [address] [place] [address] Dr. Tomasa Ley RBC 2-5 Abnormal 0-2 [facility] Comment on above: Performed By: #### U MICRO, ERUR #### [facility] [address] [place] [address] Dr. Tomasa Ley WBC 5-10 Abnormal NONE SEEN [facility] Comment on above: Performed By: #### U MICRO, ERUR #### [facility] [address] [place] [address] Dr. Tomasa Ley NM HEPATOBILIARY SCAN W [...] by: PATTY MATHEW Date: 2021-07-20 11:49 Normal [facility] Physician Referralon 022 Physician Referral [id number] Normal [facility] AMYLASEon 07-12-2021 Amylase [Catalytic activity/Vol] 35 U/L Normal 31-110 [facility] Comment on above: Performed By: #### C BC #### [facility] [address] [place] [address] Dr. Tomasa Ley CBC AUTO DIFFon 07-12-2021 BASO # 0.0 103/ul Normal 0.0-0.1 [facility] Comment on above: Performed By: #### C BC #### [facility] [address] [place] [address] Dr. Tomasa Ley Basophils/100 WBC (Bld) 0.5 % Normal 0.2-2.0 [facility] Comment on above: Performed By: #### C BC #### [facility] [address] [place] [address] Dr. Tomasa Ley EO # 0.1 103/ul Normal 0.0-0.7 [facility] Comment on above: Performed By: #### C BC #### [facility] [address] [place] [address] Dr. Tomasa eLy Eosinophils/100 WBC (Bld) 1.1 % Normal 0.9-7.0 [facility] Comment on above: Performed By: #### C BC #### [facility] [address] [place] [address] Dr. Tomasa Ley Erythrocyte distribution width (RBC) [Ratio] 16.2 % Critically high 11.0-15.0 [facility] Comment on above: Performed By: #### C BC #### [facility] [address] [place] [address] Dr. Tomasa Ley Hematocrit (Bld) [Volume fraction] 43.6 % Normal 36.0-48.0 [facility] Comment on above: Performed By: #### C BC #### [facility] [address] [place] [address] Dr. Tomasa Ley Hemoglobin (Bld) [Mass/Vol] 14.2 g/dL Normal 12.0-16.0 [facility] Comment on above: Performed By: #### C BC #### [facility] [address] [place] [address] Dr. Tomasa Ley IG # 0.02 10e3/ul Normal 0.00-0.03 [facility] Comment on above: Performed By: #### C BC #### [facility] [address] [place] [address] Dr. Tomasa Ley IG % 0.3 % Normal 0.0-0.5 [facility] Comment on above: Performed By: #### C BC #### [facility] [address] [place] [address] Dr. Tomasa Ley LYMPH # 2.0 103/ul Normal 1.2-3.8 [facility] Comment on above: Performed By: #### C BC #### [facility] [address] [place] [address] Dr. Tomasa Ley Lymphocytes/100 WBC (Bld) 25.8 % Normal 20.5-60.0 [facility] Comment on above: Performed By: #### C BC #### [facility] [address] [place] [address] Dr. Tomasa Ley MANUAL DIFF REQ NO Normal [facility] Comment on above: Performed By: #### C BC #### [facility] [address] [place] [address] Dr. Tomasa Ley MCH (RBC) [Entitic mass] 26.6 pg Critically low 26.7-34.0 [facility] Comment on above: Performed By: #### C BC #### [facility] [address] [place] [address] Dr. Tomasa Ley MCHC (RBC) [Mass/Vol] 32.6 g/dL Normal 29.9-35.2 [facility] Comment on above: Performed By: #### C BC #### [facility] [address] [place] [address] Dr. Tomasa Ley MCV (RBC) [Entitic vol] 81.6 fL Normal 81.0-99.0 [facility] Comment on above: Performed By: #### C BC #### [facility] [address] [place] [address] Dr. Tomasa Ley MONO # 0.7 103/ul Normal 0.3-0.8 [facility] Comment on above: Performed By: #### C BC #### [facility] [address] [place] [address] Dr. Tomasa Ley Monocytes/100 WBC (Bld) 9.1 % Normal 1.7-12.0 [facility] Comment on above: Performed By: #### C BC #### [facility] [address] [place] [address] Dr. Tomasa Ley NEUT # 5.0 103/ul Normal 1.4-6.5 [facility] Comment on above: Performed By: #### C BC #### [facility] [address] [place] [address] Dr. Tomasa Ley Neutrophils/100 WBC (Bld) 63.2 % Normal 43.0-75.0 [facility] Comment on above: Performed By: #### C BC #### [facility] [address] [place] [address] Dr. Tomasa Ley Platelet mean volume (Bld) [Entitic vol] 11.0 fL Normal 9.5-13.5 [facility] Comment on above: Performed By: #### C BC #### [facility] [address] [place] [address] Dr. Tomasa Ley PLT 236 103/ul Normal 150-450 [facility] Comment on above: Performed By: #### C BC #### [facility] [address] [place] [address] Dr. Tomasa Ley RBC 5.34 106/ul Normal 4.20-5.40 [facility] Comment on above: Performed By: #### C BC #### [facility] [address] [place] [address] Dr. Tomasa Ley WBC 7.9 103/ul Normal 4.0-11.0 [facility] Comment on above: Performed By: #### C BC #### [facility] [address] [address] [address] Tomasa Lye ER URINE PROFILEon 2 Bilirubin Ql (U) Negative Normal NEGATIVE [facility] Comment on above: Performed By: #### P REGU, UMICRO, ERUR #### [facility] [address] [place] [address] Dr. Tomasa Ley Clarity (U) CLEAR Normal CLEAR [facility] Comment on above: Performed By: #### P REGU, UMICRO, ERUR #### [facility] [address] [place] [address] Dr. Tomasa Ley Color (U) LT. YELLOW Normal YELLOW [facility] Comment on above: Performed By: #### P REGU, UMICRO, ERUR #### [facility] [address] [place] [address] Dr. Tomasa ESTEBAN A micrscopic examination will be performed if indicated. Normal [facility] Comment on above: Performed By: #### P REGU, UMICRO, ERUR #### [facility] [address] [place] [address] Dr. Tomasa Ley Glucose Ql (U) Negative Normal NEGATIVE [facility] Comment on above: Performed By: #### P REGU, UMICRO, ERUR #### [facility] [address] [address] [address] Tomasa Ley Hemoglobin Ql (U) TRACE-INTACT Abnormal NEGATIVE [facility] Comment on above: Performed By: #### P REGU, UMICRO, ERUR #### [facility] [address] [place] [address] Dr. Tomasa Ley Ketones Ql (U) Negative Normal NEGATIVE [facility] Comment on above: Performed By: #### P REGU, UMICRO, ERUR #### [facility] [address] [address] [address] Tomasa Ley LEUKOCYTES Negative Normal NEGATIVE [facility] Comment on above: Performed By: #### P REGU, UMICRO, ERUR #### [facility] [address] [address] [address] Tomasa Ley Nitrite Ql (U) Negative Normal NEGATIVE [facility] Comment on above: Performed By: #### P REGU, UMICRO, ERUR #### [facility] [address] [address] [address] Tomasa Ley pH (U) 5.5 [pH] Normal 5-9 [facility] Comment on above: Performed By: #### P REGU, UMICRO, ERUR #### [facility] [address] [place] [address] Dr. Tomasa Ley SPEC GRAVITY >=1.030 Abnormal 1.005-<=1.025 [facility] Comment on above: Performed By: #### P REGU, UMICRO, ERUR #### [facility] [address] [address] [address] Tomasa Ley UA PROTEIN Negative Normal NEGATIVE/ TRACE [facility] Comment on above: Performed By: #### P REGU, UMICRO, ERUR #### [facility] [address] [address] [address] Tomasa Ley UR MICRO IND INDICATED Normal [facility] Comment on above: Performed By: #### P REGU, UMICRO, ERUR #### [facility] [address] [address] [address] Tomasa Ley Urobilinogen Qn (U) 0.2 {Sly'U}/dL Normal 0.2 - 1. 0 [facility] Comment on above: Performed By: #### P REGU, UMICRO, ERUR #### [facility] [address] [address] [address] Tomasa Ley LIPASEon 07-12-2021 Lipase [Catalytic activity/Vol] 140.0 U/L Normal 23.0-300.0 [facility] Comment on above: Performed By: #### C BC #### [facility] [address] [place] [address] Dr. Tomasa Ley URon 07-12-2021 , QUAL Negative Normal NEGATIVE [facility] Comment on above: Performed By: #### P REGU, UMICRO, ERUR #### [facility] [address] [place] [address] Dr. Tomasa Ley PROF 14(COMP METB)on 022 Albumin [Mass/Vol] 3.9 g/dL Normal 3.5-5.0 [facility] Comment on above: Performed By: #### C BC #### [facility] [address] [place] [address] Dr. Tomasa Ley Albumin/Globulin [Mass ratio] 1.0 {ratio} Normal [facility] Comment on above: Performed By: #### C BC #### [facility] [address] [place] [address] Dr. Tomasa Ley ALP [Catalytic activity/Vol] 102 U/L Normal 38-126 [facility] Comment on above: Performed By: #### C BC #### [facility] [address] [place] [address] Dr. Tomasa Ley ALT [Catalytic activity/Vol] 15 U/L Normal 9-52 [facility] Comment on above: Performed By: #### C BC #### [facility] [address] [place] [address] Dr. Tomasa Ley Anion gap [Moles/Vol] 12.3 mmol/L Normal [facility] Comment on above: Performed By: #### C BC #### [facility] [address] [place] [address] Dr. Tomasa Ley AST [Catalytic activity/Vol] 14 U/L Normal 14-36 [facility] Comment on above: Performed By: #### C BC #### [facility] [address] [place] [address] Dr. Tomasa Ley Bilirubin [Mass/Vol] 0.3 mg/dL Normal 0.2-1.3 [facility] Comment on above: Performed By: #### C BC #### [facility] [address] [place] [address] Dr. Tomasa Ley Calcium [Mass/Vol] 8.8 mg/dL Normal 8.4-10.2 [facility] Comment on above: Performed By: #### C BC #### [facility] [address] [address] [address] Tomasa Ley Chloride [Moles/Vol] 103 mmol/L Normal 98-107 [facility] Comment on above: Performed By: #### C BC #### [facility] [address] [place] [address] Dr. Tomasa Ley CO2 [Moles/Vol] 25.5 mmol/L Normal 22.0-30.0 [facility] Comment on above: Performed By: #### C BC #### [facility] [address] [place] [address] Dr. Tomasa Ley Creatinine [Mass/Vol] 1.01 mg/dL Normal 0.52-1.04 [facility] Comment on above: Performed By: #### C BC #### [facility] [address] [place] [address] Dr. Tomasa Ley EGFR-AF MOROCCAN 60 mL/min/1.73m2 Normal >=60 [facility] Comment on above: Performed By: #### C BC #### [facility] [address] [place] [address] Dr. Tomasa Ley EGFR-NON AF MOROCCAN 60 mL/min/1.73m2 Normal >=60 [facility] Comment on above: Performed By: #### C BC #### [facility] [address] [place] [address] Dr. Tomasa Ley Globulin (S) [Mass/Vol] 3.8 g/dL Normal [facility] Comment on above: Performed By: #### C BC #### [facility] [address] [address] [address] Tomasa Ley Glucose [Mass/Vol] 95 mg/dL Normal 74-106 [facility] Comment on above: Performed By: #### C BC #### [facility] [address] [address] [address] Tomasa Ley Potassium [Moles/Vol] 3.8 mmol/L Normal 3.4-5.0 [facility] Comment on above: Performed By: #### C BC #### [facility] [address] [address] [address] Tomasa Ley Protein [Mass/Vol] 7.7 g/dL Normal 6.1-8.2 [facility] Comment on above: Performed By: #### C BC #### [facility] [address] [address] [address] Tomasa Ley Sodium [Moles/Vol] 137 mmol/L Normal 137-145 [facility] Comment on above: Performed By: #### C BC #### [facility] [address] [place] [address] Dr. Tomasa Ley Urea nitrogen [Mass/Vol] 16.0 mg/dL Normal 7.0-17.0 [facility] Comment on above: Performed By: #### C BC #### [facility] [address] [place] [address] Dr. Tomasa Ley Urea nitrogen/Creatinine [Mass ratio] 15.8 mg/mg Normal [facility] Comment on above: Performed By: #### C BC #### [facility] [address] [address] [address] Tomasa Ley URINE MICROSCOPIC ONLYon BACTERIA NONE SEEN Normal NONE SEEN [facility] Comment on above: Performed By: #### P RINKU CHERRY ERUR #### [facility] [address] [address] [address] Tomasa Ley Bacteria identified Cx Nom (U) NOT INDICATED Normal [facility] Comment on above: Performed By: #### P RINKU CHERRY, ERUR #### [facility] [address] [address] [address] Tomasa Ley CAST NONE SEEN Normal NONE SEEN [facility] Comment on above: Performed By: #### P REGU, UMICRO, ERUR #### [facility] [address] [address] [address] Tomasa Ley Crystals LM Nom (Urine sed) NONE SEEN Normal NONE SEEN [facility] Comment on above: Performed By: #### P REGU, UMICRO, ERUR #### [facility] [address] [address] [address] Tomasa Ley Epithelial cells LM Ql (Urine sed) MODERATE Abnormal NONE SEEN /RARE [facility] Comment on above: Performed By: #### P REGU, UMICRO, ERUR #### [facility] [address] [address] [address] Tomasa Ley MUCOUS SMALL Abnormal NONE SEEN [facility] Comment on above: Performed By: #### P REGU, UMICRO, ERUR #### [facility] [address] [address] [address] Tomasa Ley RBC 5-10 Abnormal 0-2 [facility] Comment on above: Performed By: #### P REGU, UMICRO, ERUR #### [facility] [address] [address] [address] Tomasa Ley WBC NONE SEEN Normal NONE SEEN [facility] Comment on above: Performed By: #### P REGU, UMICRO, ERUR #### [facility] [address] [address] [address] Tomasa Ley US SINGLE QUAD RT [...] PATTY MATHEW Date: 2021-07-12 09:45 Normal [facility] CBC AUTO DIFFon 12-23-2020 BASO # 0.1 103/ul Normal 0.0-0.1 [facility] Comment on above: Performed By: #### C BC #### [facility] [address] [address] [address] Tomasa Ley Basophils/100 WBC (Bld) 0.7 % Normal 0.2-2.0 [facility] Comment on above: Performed By: #### C BC #### [facility] [address] [place] [address] Dr. Tomasa Ley EO # 0.1 103/ul Normal 0.0-0.7 [facility] Comment on above: Performed By: #### C BC #### [facility] [address] [place] [address] Dr. Tomasa Ley Eosinophils/100 WBC (Bld) 1.6 % Normal 0.9-7.0 [facility] Comment on above: Performed By: #### C BC #### [facility] [address] [place] [address] Dr. Tomasa Ley Erythrocyte distribution width (RBC) [Ratio] 16.4 % Critically high 11.0-15.0 [facility] Comment on above: Performed By: #### C BC #### [facility] [address] [place] [address] Dr. Tomasa Ley Hematocrit (Bld) [Volume fraction] 41.7 % Normal 36.0-48.0 [facility] Comment on above: Performed By: #### C BC #### [facility] [address] [place] [address] Dr. Tomasa Ley Hemoglobin (Bld) [Mass/Vol] 13.1 g/dL Normal 12.0-16.0 [facility] Comment on above: Performed By: #### C BC #### [facility] [address] [place] [address] Dr. Tomasa Ley IG # 0.01 10e3/ul Normal 0.00-0.03 [facility] Comment on above: Performed By: #### C BC #### [facility] [address] [place] [address] Dr. Tomasa Ley IG % 0.1 % Normal 0.0-0.5 [facility] Comment on above: Performed By: #### C BC #### [facility] [address] [place] [address] Dr. Tomasa Ley LYMPH # 1.9 103/ul Normal 1.2-3.8 [facility] Comment on above: Performed By: #### C BC #### [facility] [address] [place] [address] Dr. Tomasa Ley Lymphocytes/100 WBC (Bld) 25.6 % Normal 20.5-60.0 [facility] Comment on above: Performed By: #### C BC #### [facility] [address] [place] [address] Dr. Tomasa Ley MANUAL DIFF REQ NO Normal [facility] Comment on above: Performed By: #### C BC #### [facility] [address] [place] [address] Dr. Tomasa Ley MCH (RBC) [Entitic mass] 25.4 pg Critically low 26.7-34.0 [facility] Comment on above: Performed By: #### C BC #### [facility] [address] [place] [address] Dr. Tomasa Ley MCHC (RBC) [Mass/Vol] 31.4 g/dL Normal 29.9-35.2 [facility] Comment on above: Performed By: #### C BC #### [facility] [address] [place] [address] Dr. Tomasa Ley MCV (RBC) [Entitic vol] 80.8 fL Critically low 81.0-99.0 [facility] Comment on above: Performed By: #### C BC #### [facility] [address] [place] [address] Dr. Tomasa Ley MONO # 0.7 103/ul Normal 0.3-0.8 [facility] Comment on above: Performed By: #### C BC #### [facility] [address] [place] [address] Dr. Tomasa Ley Monocytes/100 WBC (Bld) 10.0 % Normal 1.7-12.0 [facility] Comment on above: Performed By: #### C BC #### [facility] [address] [place] [address] Dr. Tomasa Ley NEUT # 4.6 103/ul Normal 1.4-6.5 [facility] Comment on above: Performed By: #### C BC #### [facility] [address] [place] [address] Dr. Tomasa Ley Neutrophils/100 WBC (Bld) 62.0 % Normal 43.0-75.0 [facility] Comment on above: Performed By: #### C BC #### [facility] [address] [place] [address] Dr. Tomasa Ley Platelet mean volume (Bld) [Entitic vol] 11.5 fL Normal 9.5-13.5 [facility] Comment on above: Performed By: #### C BC #### [facility] [address] [place] [address] Dr. Tomasa Ley PLT 244 103/ul Normal 150-450 [facility] Comment on above: Performed By: #### C BC #### [facility] [address] [place] [address] Dr. Tomasa Ley RBC 5.16 106/ul Normal 4.20-5.40 [facility] Comment on above: Performed By: #### C BC #### [facility] [address] [place] [address] Dr. Tomasa Ley WBC 7.4 103/ul Normal 4.0-11.0 [facility] Comment on above: Performed By: #### C BC #### [facility] [address] [place] [address] Dr. Tomasa Ley CULTURE URINEon 12-23-2020 CULTURE URINE Culture Observations : NO GROWTH. Normal [facility] Comment on above: Performed By: #### C BC #### [facility] [address] [place] [address] Dr. Tomasa Ley PROF 14(COMP METB)on 021 Albumin [Mass/Vol] 3.7 g/dL Normal 3.5-5.0 [facility] Comment on above: Performed By: #### C BC #### [facility] [address] [place] [address] Dr. Tomasa Ley Albumin/Globulin [Mass ratio] 1.0 {ratio} Normal [facility] Comment on above: Performed By: #### C BC #### [facility] [address] [place] [address] Dr. Tomasa Ley ALP [Catalytic activity/Vol] 83 U/L Normal 38-126 [facility] Comment on above: Performed By: #### C BC #### [facility] [address] [place] [address] Dr. Tomasa Ley ALT [Catalytic activity/Vol] 23 U/L Normal 9-52 [facility] Comment on above: Performed By: #### C BC #### [facility] [address] [place] [address] Dr. Tomasa Ley Anion gap [Moles/Vol] 11.4 mmol/L Normal [facility] Comment on above: Performed By: #### C BC #### [facility] [address] [place] [address] Dr. Tomasa Ley AST [Catalytic activity/Vol] 19 U/L Normal 14-36 [facility] Comment on above: Performed By: #### C BC #### [facility] [address] [place] [address] Dr. Tomasa Ley Bilirubin [Mass/Vol] 0.3 mg/dL Normal 0.2-1.3 [facility] Comment on above: Performed By: #### C BC #### [facility] [address] [place] [address] Dr. Tomasa Ley Calcium [Mass/Vol] 8.4 mg/dL Normal 8.4-10.2 [facility] Comment on above: Performed By: #### C BC #### [facility] [address] [address] [address] Tomasa Ley Chloride [Moles/Vol] 101 mmol/L Normal 98-107 [facility] Comment on above: Performed By: #### C BC #### [facility] [address] [place] [address] Dr. Tomasa Ley CO2 [Moles/Vol] 29.4 mmol/L Normal 22.0-30.0 [facility] Comment on above: Performed By: #### C BC #### [facility] [address] [place] [address] Dr. Tomasa Ley Creatinine [Mass/Vol] 1.03 mg/dL Normal 0.52-1.04 [facility] Comment on above: Performed By: #### C BC #### [facility] [address] [place] [address] Dr. Tomasa Ley EGFR-AF MOROCCAN >60 Normal >=60 [facility] Comment on above: Performed By: #### C BC #### [facility] [address] [place] [address] Dr. Tomasa Ley EGFR-NON AF MOROCCAN >60 Normal >=60 [facility] Comment on above: Performed By: #### C BC #### [facility] [address] [place] [address] Dr. Tomasa Ley Globulin (S) [Mass/Vol] 3.6 g/dL Normal [facility] Comment on above: Performed By: #### C BC #### [facility] [address] [place] [address] Dr. Tomasa Ley Glucose [Mass/Vol] 85 mg/dL Normal 74-106 [facility] Comment on above: Performed By: #### C BC #### [facility] [address] [place] [address] Dr. Tomasa Ley Potassium [Moles/Vol] 3.8 mmol/L Normal 3.4-5.0 [facility] Comment on above: Performed By: #### C BC #### [facility] [address] [place] [address] Dr. Tomasa Ley Protein [Mass/Vol] 7.3 g/dL Normal 6.1-8.2 [facility] Comment on above: Performed By: #### C BC #### [facility] [address] [place] [address] Dr. Tomasa Ley Sodium [Moles/Vol] 138 mmol/L Normal 137-145 [facility] Comment on above: Performed By: #### C BC #### [facility] [address] [place] [address] Dr. Tomasa Ley Urea nitrogen [Mass/Vol] 9.0 mg/dL Normal 7.0-17.0 [facility] Comment on above: Performed By: #### C BC #### [facility] [address] [place] [address] Dr. Tomasa Ley Urea nitrogen/Creatinine [Mass ratio] 8.7 mg/mg Normal [facility] Comment on above: Performed By: #### C BC #### [facility] [address] [place] [address] Dr. Tomasa Ley UA RANDOMon 12-23-2020 Bilirubin Ql (U) Negative Normal NEGATIVE [facility] Comment on above: Performed By: #### U A #### [facility] [address] [place] [address] Cedrick Kathleen Clarity (U) CLEAR Normal CLEAR [facility] Comment on above: Performed By: #### U A #### [facility] [address] [place] [address] Cedrick Kathleen Color (U) LT. YELLOW Normal YELLOW [facility] Comment on above: Performed By: #### U A #### [facility] [address] [place] [address] Cedrick Kathleen Glucose Ql (U) Negative Normal NEGATIVE [facility] Comment on above: Performed By: #### U A #### [facility] [address] [place] [address] Cedrick Kathleen Hemoglobin Ql (U) Negative Normal NEGATIVE [facility] Comment on above: Performed By: #### U A #### [facility] [address] [address] Cedrick Kathleen Ketones Ql (U) Negative Normal NEGATIVE [facility] Comment on above: Performed By: #### U A #### [facility] [address] [place], [place] [id number] Cedrick Kathleen LEUKOCYTES Negative Normal NEGATIVE [facility] Comment on above: Performed By: #### U A #### [facility] [address] [place], [place] [address] Cedrick Kathleen Nitrite Ql (U) Negative Normal NEGATIVE [facility] Comment on above: Performed By: #### U A #### [facility] [address] [place], [place] [address] Cedrick Kathleen pH (U) 5.5 [pH] Normal 5-9 [facility] Comment on above: Performed By: #### U A #### [facility] [address] [place] [address] Cedrick Wang SPEC GRAVITY <=1.005 Abnormal 1.005-<=1.025 [facility] Comment on above: Performed By: #### U A #### [facility] [address] [place], [place] [address] Cedrick Kathleen UA PROTEIN Negative Normal NEGATIVE/ TRACE [facility] Comment on above: Performed By: #### U A #### [facility] [address] [place], [place] [address] Cedrick Wang Urobilinogen Qn (U) 0.2 {Sly'U}/dL Normal 0.2 - 1. 0 [facility] Comment on above: Performed By: #### U A #### [facility] [address] [place], [place] [address] Cedrick Kathleen US KIDNEYS BLADDERon 021 US [...] by: JABIER ALSTON Date: 2020-12-23 15:06 Normal [facility] Vital Signs Date Time Vital Sign Value Performing Clinician Facility 05-04-2024 08:03-0500 Body mass index (BMI) [Ratio] 34.11 kg/m2 Sabrina Head SURVEY PARTY CHIEF Work Phone: [facility] 05-04-2024 08:03-0500 Body weight 92.99 kg Sabrina Head SURVEY PARTY CHIEF Work Phone: [facility] 05-04-2024 08:03-0500 Diastolic blood pressure 74 mm[Hg] Sabrina Head SURVEY PARTY CHIEF Work Phone: [facility] 05-04-2024 08:03-0500 Heart rate 53 /min Sabrina Head SURVEY PARTY CHIEF Work Phone: [facility] 05-04-2024 08:03-0500 Systolic blood pressure 110 mm[Hg] Sabrina Head SURVEY PARTY CHIEF Work Phone: [facility] 02-09-2023 13:45-0400 Body height 158.12 cm Elin Bryan Other [facility] [employer] Other 02-09-2023 13:45-0400 Body mass index (BMI) [Ratio] 37.19 kg/m2 Elin Bryan Other [facility] Other 02-09-2023 13:45-0400 Body temperature 98.1 [degF] Elin Bryan Other [facility] Other 02-09-2023 13:45-0400 Body weight 92.99 kg Elin Bryan Other [facility] Other 02-09-2023 13:45-0400 Respiratory rate 18 /min Elin Bryan Other [facility] Other 02-09-2023 13:45-0400 SaO2% (BldA) [Mass fraction] 98 % Elin Randi Other [facility] Other Encounters Encounter Date Encounter Type Care Provider Facility Start: 05-18-2024 End: 05-18-2024 Telephone encounter Sabrina Head SURVEY PARTY CHIEF Work Phone: [facility] Comment on above: Advice Only Start: 05-10-2024 End: 05-10-2024 Telephone encounter Lori Blackwell CONSTRUCTION SUPERVISOR/CARPENTER [facility] Comment on above: Medication Problem Start: 05-04-2024 End: 05-04-2024 Bamboo flowsheet Sabrina Head SURVEY PARTY CHIEF Work Phone: [facility] Start: 05-04-2024 End: 05-04-2024 Bamboo flowsheet Sabrina Head SURVEY PARTY CHIEF Work Phone: [facility] Start: 05-04-2024 End: 05-04-2024 Office outpatient new 60 minutes Sabrina Head SURVEY PARTY CHIEF Work Phone: [facility] Comment on above: [...] encounter procedure MD Lydia San Work Phone: [facility] Work Phone: Start: 02-09-2023 End: 10-08-2023 ambulatory MD Lydia San Work Phone: [facility] [employer] Other Start: 02-09-2023 Office outpatient visit 15 minutes Elin Bryan [facility] Start: 09-10-2022 ambulatory Rob Tejada acility:[facility] Start: 12-08-2021 End: 12-08-[address] [...] ice Visit [facility] [address] [facility] [address] [place] [address] Sabrina Head NP [address] [facility] [address] [place] [address] [facility] Start: 06-09-2024 End: 06-09-2024 Patient encounter procedure 06/09/2024 9:30 AM EST Off ice Visit [facility] [address] [facility] [address] [place] [address] Sabrina Head, CONY [address] [facility] [address] [place] [address] [facility] Start: 05-04-2024 End: 05-04-2024 Patient encounter procedure 05/04/2024 8:00 AM EST Off ice Visit [facility] [address] [facility] [address] [place] [id number] Sabrina Head NP [address] [facility] [address] [place] [address] Arrived [facility] Comment on above: Arrived Immunizations Immunization Date Immunization Notes Care Provider Fa cility 07-11-2018 tetanus toxoid, reduced diphtheria toxoid, and acellular pertussis vaccine, adsorbed MD Lydia San Work Phone: [facility] 04-10-2011 human papilloma viru s vaccine, quadrivalent Elin Bryan Other [employer] Other Payers Date Payer Category Payer Self-pay [id number] 2021 [facility] [id number] 1992 Unknown [id number] 06.20.840.1.277974.3.579.2. 593 1992 Unknown [id number] 06.20.840.1.806378.3.579.2. 593 1992 Unknown [id number] 2.16.840.1.409206.3.579.2. 593 1992 Unknown [id number] 2.16.840.1.410443.3.579.2. 593 1992 Unknown [id number] 2.16.840.1.314301.3.579.2. 593 1992 Unknown [id number] 2.16.840.1.064531.3.579.2. 593 1992 Unknown [id number] 2.16.840.1.686220.3.579.2. 1259 1992 Unknown [id number] 2.16.840.1.326076.3.579.2. 1259 1992 Unknown [id number] 2.16.840.1.636373.3.579.2. 1259 1992 Unknown [id number] 2.16.840.1.061161.3.579.2. 1259 1992 Unknown [id number] 2.16.840.1.180138.3.579.2. 1259 1959 Private Health Insurance [id number] 1959 Private Health Insurance [id number] 1959 Unknown [id number] 1959 Unknown [id number] Medicaid Medicaid [id number] Private Health Insurance RUST [id number] Unknown MMO [id number] Unknown [id number] 2.16.840.1.037800.3.579.2. 531 Unknown [id number] 2.16840.1.226880.3.579.2. 531 Social History Date Type Detail Facility Unknown if ever smoked [employer] [facility] [employer] Other Start: 09-15-2023 End: 05-04-2024 Sex Assigned At [facility] [employer] Other Start: 07-20-2021 End: 09-15-2023 Tobacco smoking status NHIS Never smoked tobacco (finding) [facility] Start: 1990 Sex Assigned At Female [facility] Start: 09-15-2023 Tobacco use [...] to give her medication time to work. [facility] 05-18-2024 Miscellaneous Notes Formattin g of this [...] scheduled for 06/09/24. documented in this encounter [facility] 05-18-2024 Telephone encount er Note Patient called [...] has a follow up scheduled for 06/09/24. [facility] 05-10-2024 Telephone encount er Note Order for Remeron sent. [facility] 05-10-2024 Miscellaneous Notes Formattin g of this [...] to appt. Would like remeron sent to [facility] Patients Kahlil came in office for [...] from his appt. documented in this encounter [facility] 05-10-2024 Telephone encount er Note Contacted on [...] to appt. Would like remeron sent to [facility] 05-10-2024 Telephone encount er Note Patients Kahlil [...] on his way out from his appt. [facility] 05-04-2024 History of Presen t illness Narrative Images from the original note were not included. Lindsay Montilla is a 33 y.o. 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 Patient was referred by [facility]. Rosemarie, who is her case technician from [facility], is here today for additional support. HPI: Reason for visit: Lindsay Montilla has been experiencing problems with depression and anxiety for many years. She is here to discuss possible medication options to help her symptoms. Developmental History/Childhood: Raised primarily by bio mom between the [facility]. Patient reports being diagnosed with Wilm's tumor [...] of Behcet's syndrome and had seen an harness repairer in [place] previously. She states she has not seen [...] was with for 6 years. Education: Attended [employer] and obtained her high school diploma. Also attended some courses at [employer]. Legal history: Denies Family history of mental [...] , Kahlil, for 10 years. 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 Children: 1 daughter (6 years old) Living situation: Lives in home with and their daughter. They have 3 dogs, a bird and a snake. Occupation: Unemployed for the past 5 years. 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 Patient was seen Face to Face, Total time spent with patient was 60 minutes, which includes reviewing chart documents, previous notes/records, counseling and discussion with patient and/or coordination of care as described above. documented in this encounter [facility] 02-09-2023 Evaluation note Encounter Date Diagnosis Assessment [...] middle finger, initial encounter (ICD-10 - S69.92XA) [facility] Other 08-01-2023 History general Narrative - Reported* Type Description Date Medical History autoimmune disorder Medical History hyperprolactinemia Medical History Wilms tumor, [place] Surgical History Removal of left kidney 1998 Surgical History GALL BLADDER 12/2022 Hospitalization History Removal of left kidney 1 999 Hospitalization History GALL BLADDER Hospitalization History 1 CHILD [employer] [facility] [employer] Other Evaluation noteNo assessment information available [facility] Work Phone: Evaluation note* Diagnosis Mild [...] section and content) DATE CREATED AUTHOR 07/14/2021 [place] [facility] DATE CREATED AUTHOR AUTHOR'S ORGANIZ ATION 12/10/2021 [facility] DATE CREATED AUTHOR AUTHOR'S ORGANIZ ATION 02/14/2023 [facility] DATE CREATED AUTHOR AUTHOR'S ORGANIZ ATION 05/05/2024 [facility] d[facility] Specialists EPIC REASON FOR VISIT (unrecogniz ed section and content) Reason Comments Psychiatric Evaluation NEDA referral Specialty Diagnoses / Procedures Referred By Contac t Referred To Contact Behavioral Health Diagnoses Insomnia, unspecified Procedures IN UNLISTED EVALUATION AND MANAGEMENT Lydia San MD [address] [place] [address] Phone: tel: fax: Sabrina Head NP [address] [address] Phone: tel: fax: Referral ID Status Reason Start Date Expiration Date Visits Re quested Visits Authorized [id number] Closed 04/19/2024 10/16/2024 1 1 Reason Onset Date Comments Medication Problem 05/10/2024 Reason Onset Date Comments Advice Only 05/18/2024 Care Teams (unrecognized sec tion and content) Team Status: Active Member Role Status Dates Lydia San MD Primary Care Provider Active Team Status: Inactive Member Role Status Dates Lydia San MD Primary Care Provider Active Elin Bryan APRN Attending Provider Active Metallographer Relationship Specialty Start Date End Date Lydia San MD [address] [place] [address] PCP - General Family Medicine 09/15/23 Metallographer Relationship Specialty Start Date End Date Lydia San MD [address] [place] [address] PCP - General Family Medicine 09/15/23 Sabrina Head NP [address] [id number] Nurse Practitioner Behavioral Health 05/04/24 Metallographer Relationship Specialty Start Date End Date Lydia San MD [address] [place] [address] PCP - General Family Medicine 09/15/23 Sabrina Head NP 112 [facility] [address] [place] [address] Nurse Practitioner Behavioral Health 05/04/24 Metallographer Relationship Specialty Start Date End Date Lydia San MD [address] [place] [address] PCP - General Family Medicine 09/15/23 Sabrina Head NP [address] [id number] Nurse Practitioner Behavioral Health 05/04/24 Goals (unrecognized [...] BE BASED ON THE PRIMARY CLINICAL RECORDS. [employer] provides no warranty or guarantee of the accuracy or completeness of information in this document.
== END 2024-06-16 15:47 | disposition home or self-care (01) ==
LOC: US 15:46
PROVIDERS: PCP Family Medicine; Visit Provider Family Medicine
DX: M79.661 Pain in right lower leg (principal); M79.662 Pain in left lower leg; M79.606 Pain in leg, unspecified
CPT/HCPCS: 72110; 93970

== ENCOUNTER 2024-08-19 09:55 | Outpatient (OUT) | payer BC, SELFPAY ==
--- NOTE | 2024-08-19 09:59 | US_ITS ---
The [address] [address] Patient Name: GEMA MONTILLA MRN: [id number] date: 1990 Sex: F Assigned Patient Location: US Current Patient Location: US Accession/Order Number: [id number] Exam Date: 08/19/2024 12:06 Report Date: 08/19/2024 12:09 At the request of: LYDIA ESTRELLA MD Procedure: US renal BI BILATERAL RENAL AND BLADDER ULTRASOUND CLINICAL HISTORY: Right flank pain for the past 4 days. Prior left nephrectomy COMPARISON: 06/04/2024 Estimation of renal size is approximately 11.5 on the right. The left kidney is surgically absent and there are no masses at the nephrectomy bed. No shadowing calculi or hydronephrosis are identified. There is a cyst at the lower pole the right kidney measuring 15 mm in size. There is no perinephric fluid. The urinary bladder is partially distended with a volume of 287 mL. No contour or intraluminal abnormalities are seen. US/US renal BI IMPRESSION: PRIOR LEFT NEPHRECTOMY. NO RIGHT OBSTRUCTIVE UROPATHY. SMALL RIGHT RENAL CYST. Impression dictated by: Kathleen Cheng M.D.08/19/2024 12:09 PM Dictation Location: [place] [address] Electronically authenticated by: [id number] Date: 08/19/2024 12:09
--- OUTSIDE RECORDS SUMMARY | 2024-08-19 10:02 | XMS_ITS | CCD ---
Author Organization [facility] Team Providers Care Tractor Distributor Name Role Phone SAMEER, DR FREEMAN Admitting Unavailable HOY, DR FREEMAN Attending Unavailable HOY, DR FREEMAN Primary Care Unavailable HOY, DR FREEMAN Consulting Unavailable ALSTONJABIER Consulting Unavailable HOY, DR FREEMAN Admitting Unavailable HOY, DR FREEMAN Attending Unavailable HOY, DR FREEMAN Primary Care Unavailable HOY, DR FREEMAN Consulting Unavailable HOY, DR FREEMAN Admitting Unavailable HOY, DR FREEMAN Attending Unavailable HOY, DR FREEMAN Primary Care Unavailable HOY, DR FREEMAN Consulting Unavailable MANJEET, DR VINAY Wise Consulting Unavailable SAMEER, DR FREEMAN Primary Care Unavailable JOHANNY, DR BIRD Admitting Unavailable HAY, DR BIRD Attending Unavailable ZIEBER, DR PATTY Vu Consulting Unavailable HAY, DR BIRD Consulting Unavailable SAMEER, DR FREEMAN Primary Care Unavailable HAY, DR BIRD Admitting Unavailable JOHANNY, DR BIRD Attending Unavailable JOHANNY, DR BIRD Consulting Unavailable VINAY ALVAREZ Consulting Unavailable HOY, DR FREEMAN Admitting Unavailable HOY, DR FREEMAN Attending Unavailable HOY, DR FREEMAN Primary Care Unavailable HOY, DR FREEMAN Consulting Unavailable ZIEBALESKEY, DR PATTY Vu Consulting Unavailable Elin Bryan Unavailable MD Lydia San Primary Care Provider [phone] TETE Bryan Attending Provider Lydia San Primary Care Unavailable Elin Bryan Admitting Unavailable Elin Bryan Attending Unavailable Rob Coello Admitting Unavailab Rob Broderick Attending Unavailab Lydia Isbell Primary Care Unavailable Lydia San MD Primary Care Provider [phone] Sabrina Head NP Unavailable [phone] SABRINA HEAD Attending Unavailable RACHAEL STARR Attending Unavailable SABRINA HEAD Referring Unavailable FER ROMAN Attending Unavailable FER ROMAN Referring Unavailable FER ROMAN Referring Unavailable FER ROMAN Attending Unavailable ESTER MIRANDA Attending UnavailFER Nolasco Attending Unavailable FER ROMAN Referring Unavailable SABRINA HEAD Attending Unavailable LYDIA SAN Referring Unavailable Allergies Allergy Classification Reported Allergen(s) Allergy Type Date of Onset Reaction(s) Facility (1 source) HYDROcodone Drug Allergy [facility] Repository (7 sources) buPROPion Drug Allergy 4 Other [facility] Healthcare (7 sources) Escitalopram Drug Allergy 4 Other [facility] (7 sources) Wound Dressing Adhesive Drug Intolerance 3 [facility] Medications Current Medications Medication Drug Class(es) Dates Sig (Normalized) Sig (Original) busPIRone hydrochloride 10 mg oral tablet (6 sources) Start: 03-01-2024 End: 06-23-2024 take 1 tablet by mouth in the morning busPIRone (Buspar) 10 MG tablet Take 10 mg by mouth in the morning and 10 mg before bedtime. 03/01/2024 06/23/2024 Discontinued (Other) DULoxetine 20 mg delayed release oral capsule (5 sources) Serotonin and Norepinephrine Reuptake Inhibitor Start: 06-14-2024 take 1 capsule by mouth once daily DULoxetine (Cymbalta) [address] capsule Take 20 mg by mouth Daily 06/14/2024 Active Start: 05-04-2024 End: 06-03-2024 take 1 capsule by mouth once daily DULoxetine (Cymbalta) [address] capsule Indications: Mild episode of recurrent major depressive disorder (HCC) (CMS/HCC) , MYRANDA (generalized anxiety disorder) (CMS/HCC) Take 1 capsule (20 mg) by mouth Daily Do not crush or chew. 30 capsule 1 05/04/2024 05/10/2024 Discontinued (Side effects) 21 day ethinyl estradiol 0.276052 mg/hr / etonogestrel 0.005 mg/hr vaginal system (7 sources) Progestin, Estrogen Start: 12-17-2023 etonogestrel-ethinyl estradiol (Nuvaring) 0.12-0.015 MG/24HR vaginal ring Indications: Encounter for surveillance of transdermal patch hormonal contraceptive device Insert 1 Ring into the vagina every 28 (twenty-eight) days Insert vaginal ring for 3 weeks, then remove for 1 week. 1 each 11 12/17/2023 Active mirtazapine 7.5 mg oral tablet (2 sources) Start: 05-10-2024 End: 06-09-2024 take 1 tablet by mouth at bedtime mirtazapine (Remeron) 7.5 MG tablet Indications: Mild episode of recurrent major depressive disorder (HCC) (CMS/HCC) , MYRANDA (generalized anxiety disorder) (CMS/HCC) Take 1 tablet (7.5 mg) by mouth at bedtime 30 tablet 1 05/10/2024 05/18/2024 Discontinued (Side effects) [place] (No Known Home Meds) (1 source) Start: 07-20-2021 [place] (No Known Home Meds) Active July 20, 2021 12:00am predniSONE 10 mg oral tablet (7 sources) take 1 tablet by mouth every twenty-four hours as needed predniSONE (Deltasone) 10 MG tablet Take 10 mg by mouth Daily as needed (During flairs) Active triamcinolone acetonide 1 mg/ml topical cream (7 sources) Corticosteroid Start: 12-17-2023 triamcinolone (Kenalog) 0.1 % cream Indications: Rash Apply topically 2 (two) times a day 30 g 3 12/17/2023 Active Completed/Discontinued Medications Medication Drug Class(es) Dates Sig (Normalized) Sig (Original) [id number] 200 actuat albuterol 0.09 mg/actuat metered dose [...] hours Ibuprofen Discontinued 800 MG PO Q6H 30 July 11, 2018 1:00am July 20, 2021 4:10pm Vit 72-Lzab-Qqvex-Dha ( + Dha) 28 mg iron- 975 mcg-200 mg Combo Pack (1 source) Start: 06-18-2018 End: 07-20-2021 Vit 48-Pffx-Nsmia-Dha ( + Dha) 28 mg iron- 975 mcg-200 mg Combo Pack Discontinued 1 PACKET PO Daily June 18, 2018 1:00am July 20, 2021 4:10pm Problems Active Problems Problem Classification Problem Date Documented Date Episodic/Chronic Abdominal pain (11 sources) Right lower quadrant pain; Translations: [Right upper quadrant pain] Onset: 07-20-2021 Episodic Anxiety disorders (11 sources) Generalized anxiety disorder; Translations: [Generalized anxiety disorder] Onset: 05-04-2024 05-04-2024 Chronic Cancer of kidney and renal pelvis (8 sources) Nephroblastoma of left kidney; Translations: [Malignant [...] in urine] Onset: 12-23-2020 Episodic Mood disorders (11 sources) Recurrent major depressive episodes, mild ; [...] predominantly involving limbs] Chronic 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; 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] Onset: 05-06-2024 05-06-2024 Chronic Other connective tissue disease (6 sources) Behcet's syndrome; 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] Onset: 05-06-2024 05-06-2024 Episodic Other diseases of kidney and ureters [...] Episodic Other nutritional; endocrine; and metabolic disorders (10 sources) H/O: endocrine disorder; Translations: [Personal history [...] 07-16-2021 Episodic Cancer; other and unspecified primary (7 sources) H/O: malignant neoplasm; Translations: [Personal history of malignant neoplasm, unspecified] Onset: 04-26-2024 Resolved: 04-26-2024 04-26-2024 Episodic Deficiency and other anemia (7 sources) Anemia; Translations: [Anemia, unspecified] Onset: 12-13-2015 Resolved: 04-26-2024 04-26-2024 Episodic Residual codes; unclassified (1 source) Acquired absence of kidney; Translations: [ACQUIRED ABSENCE OF KIDNEY] Onset: 12-28-2020 Episodic Results Test Name Value Interpretation Reference Range Facility XR hand LT min 3V*on 023 XR hand LT min 3V* [facility] [place] [address] [place] [address] XRay Report Signed Patient: Gema Raymond MR#: [id number] 0 : 1990 Acct:[id number] Age/Sex: 32 / F ADM Date: 02/09/23 Loc: XDUCLY Room: Type: [facility] Attending Dr: Elin Bryan APRN Copies [...] Kathleen Cheng M.D.02/09/2023 3:30 PM Dictation Location: [place] [address] Transcribed By: [facility] 02/09/23 1530 Dictated By: Kathleen Cheng MD 02/09/23 152 Signed By: 02/09/23 1530 Normal [facility] XR hand LT min 3V* [facility] Other XR hand LT min 3V* [facility] Other XR hand LT min 3V* [address] [place] [address] [facility] Other XR hand LT min 3V* [place] [address] [employer] Other XR hand LT min 3V* XRay Report [facility] Other XR hand LT min 3V* Signed [facility] Other XR hand LT min 3V* Patient: Gema Raymond MR#: [id number] [place] [facility] Other XR hand LT min 3V* 0 [employer] Other XR hand LT min 3V* : 1990 Acct:[id number] [employer] Other XR hand LT min 3V* Age/Sex: 32 / F ADM Date: 02/09/23 [place] Other XR hand LT min 3V* Loc: XDUCLY Room: Type: REG CLI [facility] Other XR hand LT min 3V* Attending Dr: Elin Bryan CYLINDER [employer]LE [employer]INER [employer] Other XR hand LT min 3V* Copies to: Elin Bryan BANNER [employer] Other XR hand LT min 3V* Ordering Provider: Elin Bryan APRN [employer] Other XR hand LT min 3V* Date of Service: 02/09/23 [facility] Other XR hand LT min 3V* XR/XR hand LT min 3V*: LEFT HAND INJURY [employer] Other XR hand LT min 3V* LEFT HAND - 3 views [facility] Other XR hand LT min 3V* CLINICAL DATA: Crush injury of the left fingers this morning. Pain and swelling at the third and [employer] Other XR hand LT min 3V* fourth digits. No rtSezion Other XR hand LT min 3V* COMPARISON: None [facility] Other XR hand LT min 3V* AP, lateral and oblique views were obtained. There is no evidence of fracture or dislocation. [employer] Other XR hand LT min 3V* There are no significant soft tissue abnormalities. [employer] Other XR hand LT min 3V* XR/XR hand LT min 3V* [employer] Other XR hand LT min 3V* IMPRESSION: [employer] Other XR hand LT min 3V* NO ACUTE BONY INJURY. [employer] Other XR hand LT min 3V* Impression dictated by: Kathleen Cheng M.D.02/09/2023 3:30 PM [employer] Other XR hand LT min 3V* Dictation Location: [place] [address] [employer] Other XR hand LT min 3V* Transcribed By: MARLA 02/09/23 1530 [facility] Other XR hand LT min 3V* Dictated By: Kathleen Cheng MD 02/09/23 1529 [employer] Other XR hand LT min 3V* Signed By: [facility] Other XR hand LT min 3V* 02/09/23 1530 [facility] Arch[facility] Other GI PANEL (PCR)on 12-08-2021 Adenovirus F 40/41 Not detected Normal NOT DETECTED [facility] Comment on above: Performed By: #### G IPANEL #### [facility] [address] [place] [address] Dr. Tomasa Ley Astrovirus Not detected Normal NOT DETECTED [facility] Comment on above: Performed By: #### G IPANEL #### [facility] [address] [place] [address] Dr. Tomasa Ley C. Diff toxin A/B Not detected Normal NOT DETECTED [facility] Comment on above: Performed By: #### G IPANEL #### [facility] [address] [place] [address] Dr. Tomasa Ley Campylobacter Not detected Normal NOT DETECTED [facility] Comment on above: Performed By: #### G IPANEL #### [facility] [address] [place] [address] Dr. Tomasa Ley Cryptosporidium Not detected Normal NOT DETECTED [facility] Comment on above: Performed By: #### G IPANEL #### [facility] [address] [place] [address] Dr. Tomasa Ley Cyclos. Cayetanensis Not detected Normal NOT DETECTED [facility] Comment on above: Performed By: #### G IPANEL #### [facility] [address] [place] [address] Dr. Tomasa Ley E. Coli O157 Not Applicable Normal Not Applicable [facility] Comment on above: Performed By: #### G IPANEL #### [facility] [address] [place] [address] Dr. Tomasa Ley E. histolytica Not detected Normal NOT DETECTED [facility] Comment on above: Performed By: #### G IPANEL #### [facility] [address] [place] [address] Dr. Tomasa Ley EAEC Not detected Normal NOT DETECTED [facility] Comment on above: Performed By: #### G IPANEL #### [facility] [address] [place] [address] Dr. Tomasa Ley EIEC Not detected Normal NOT DETECTED [facility] Comment on above: Performed By: #### G IPANEL #### [facility] [address] [place] [address] Dr. Tomasa Ley EPEC Not detected Normal NOT DETECTED [facility] Comment on above: Performed By: #### G IPANEL #### [facility] [address] [place] [address] Dr. Tomasa Ley ETEC Not detected Normal NOT DETECTED [facility] Comment on above: Performed By: #### G IPANEL #### [facility] [address] [place] [address] Dr. Tomasa Zuñiga Lamblia Not detected Normal NOT DETECTED [facility] Comment on above: Performed By: #### G IPANEL #### [facility] [address] [place] [address] Dr. Tomasa LOO CONTROLS PASSED Normal [facility] Comment on above: Performed By: #### G IPANEL #### [facility] [address] [place] [address] Dr. Tomasa DANIELSON [facility] HEADER GI PANEL BACTERIA Normal [facility] Comment on above: Performed By: #### G IPANEL #### [facility] [address] [place] [address] Dr. Tomasa RUCKER ECOLI GI PANEL DIARRHEAGENIC E.COLI / SHIGELLA Normal [facility] Comment on above: Performed By: #### G IPANEL #### [facility] [address] [place] [address] Dr. Tomasa RUCKER INFO SEE BELOW [facility] Comment on above: Result Comment: EAEC - Enteroaggregative E. Coli EPEC- Enteropathogenic E. Coli ETEC- Enterotoxigenic E. Coli lt/st STEC- Shigella-like toxin-producing E. Coli stx1/stx2 EIEC- Shigella/Enteroinvasive E. Coli Performed By: #### G IPANEL #### [facility] [address] [place] [address] [address] Tomasa RUCKER PARASITES GI PANEL PARASITES Normal [facility] Comment on above: Performed By: #### G IPANEL #### [facility] [address] [place] [address] [address] Tomasa RUCKER VIRUS GI PANEL VIRUSES Normal [facility] Comment on above: Performed By: #### G IPANEL #### [facility] [address] [place] [address] [address] Tomasa Ley Norovirus GI/GII Not detected Normal NOT DETECTED [facility] Comment on above: Performed By: #### G IPANEL #### [facility] [address] [place] [address] Dr. Tomasa Ley P. Shigelloides Not detected Normal NOT DETECTED [facility] Comment on above: Performed By: #### G IPANEL #### [facility] [address] [place] [address] [address] Tomasa Ley Rotavirus A Not detected Normal NOT DETECTED [facility] Comment on above: Performed By: #### G IPANEL #### [facility] [address] [place] [address] [address] Tomasa Ley Salmonella Not detected Normal NOT DETECTED [facility] Comment on above: Performed By: #### G IPANEL #### [facility] [address] [place] [address] [address] Tomasa Ley Sapovirus Not detected Normal NOT DETECTED [facility] Comment on above: Performed By: #### G IPANEL #### [facility] [address] [place] [address] Dr. Tomasa Ley STEC Not detected Normal NOT DETECTED [facility] Comment on above: Performed By: #### G IPANEL #### [facility] [address] [place] [address] Dr. Tomasa Ley Vibrio Not detected Normal NOT DETECTED [facility] Comment on above: Performed By: #### G IPANEL #### [facility] [address] [place] [address] [address] Tomasa Ley Vibrio Cholera Not detected Normal NOT DETECTED [facility] Comment on above: Performed By: #### G IPANEL #### [facility] [address] [place] [address] Dr. Tomasa Ley Y. Enterocolitica Not detected Normal NOT DETECTED [facility] Comment on above: Performed By: #### G IPANEL #### [facility] [address] [place] [address] Dr. Tomasa Ley US PELVIS AND TRANSVAGon [...] VINAY BURROUGHS Date: 2021-11-12 19:43 Normal [facility] AMYLASEon 10-28-2021 Amylase [Catalytic activity/Vol] 36 U/L Normal 25-115 [facility] Comment on above: Performed By: #### C BC #### [facility] [address] [place] [address] Dr. Tomasa Ley CBC AUTO DIFFon 10-28-2021 BASO # 0.0 103/ul Normal 0.0-0.1 [facility] Comment on above: Performed By: #### C BC #### [facility] [address] [place] [address] Dr. Tomasa Ley Basophils/100 WBC (Bld) 0.4 % Normal 0.2-2.0 [facility] Comment on above: Performed By: #### C BC #### [facility] [address] [place] [address] Dr. Tomasa Ley EO # 0.1 103/ul Normal 0.0-0.7 [facility] Comment on above: Performed By: #### C BC #### [facility] [address] [place] [address] Dr. Tomasa Ley Eosinophils/100 WBC (Bld) 0.6 % Critically low 0.9-7.0 [facility] Comment on above: Performed By: #### C BC #### [facility] [address] [place] [address] Dr. Tomasa Ley Erythrocyte distribution width (RBC) [Ratio] 15.2 % Critically high 11.0-15.0 [facility] Comment on above: Performed By: #### C BC #### [facility] [address] [place] [address] Dr. Tomasa Ley Hematocrit (Bld) [Volume fraction] 45.1 % Normal 36.0-48.0 [facility] Comment on above: Performed By: #### C BC #### [facility] [address] [place] [address] Dr. Tomasa Ley Hemoglobin (Bld) [Mass/Vol] 14.2 g/dL Normal 12.0-16.0 [facility] Comment on above: Performed By: #### C BC #### [facility] [address] [place] [address] Dr. Tomasa Ley IG # 0.02 10e3/ul Normal 0.00-0.03 [facility] Comment on above: Performed By: #### C BC #### [facility] [address] [place] [address] Dr. Tomasa Ley IG % 0.3 % Normal 0.0-0.5 [facility] Comment on above: Performed By: #### C BC #### [facility] [address] [place] [address] Dr. Tomasa Ley LYMPH # 1.6 103/ul Normal 1.2-3.8 [facility] Comment on above: Performed By: #### C BC #### [facility] [address] [place] [address] Dr. Tomasa Ley Lymphocytes/100 WBC (Bld) 19.6 % Critically low 20.5-60.0 [facility] Comment on above: Performed By: #### C BC #### [facility] [address] [place] [address] Dr. Tomasa Ley MANUAL DIFF REQ NO Normal [facility] Comment on above: Performed By: #### C BC #### [facility] [address] [place] [address] Dr. Tomasa Ley MCH (RBC) [Entitic mass] 25.9 pg Critically low 26.7-34.0 [facility] Comment on above: Performed By: #### C BC #### [facility] [address] [place] [address] Dr. Tomasa Ley MCHC (RBC) [Mass/Vol] 31.5 g/dL Normal 29.9-35.2 [facility] Comment on above: Performed By: #### C BC #### [facility] [address] [place] [address] Dr. Tomasa Ley MCV (RBC) [Entitic vol] 82.1 fL Normal 81.0-99.0 [facility] Comment on above: Performed By: #### C BC #### [facility] [address] [place] [address] Dr. Tomasa Ley MONO # 0.6 103/ul Normal 0.3-0.8 [facility] Comment on above: Performed By: #### C BC #### [facility] [address] [place] [address] Dr. Tomasa Ley Monocytes/100 WBC (Bld) 7.5 % Normal 1.7-12.0 [facility] Comment on above: Performed By: #### C BC #### [facility] [address] [place] [address] Dr. Tomasa Ley NEUT # 5.7 103/ul Normal 1.4-6.5 [facility] Comment on above: Performed By: #### C BC #### [facility] [address] [place] [address] Dr. Tomasa Ley Neutrophils/100 WBC (Bld) 71.6 % Normal 43.0-75.0 [facility] Comment on above: Performed By: #### C BC #### [facility] [address] [place], [place] [address] Dr. Tomasa Ley Platelet mean volume (Bld) [Entitic vol] 11.3 fL Normal 9.5-13.5 [facility] Comment on above: Performed By: #### C BC #### [facility] [address] [place], [place] [address] Dr. Tomasa Ley PLT 246 103/ul Normal 150-450 [facility] Comment on above: Performed By: #### C BC #### [facility] [address] [place], [place] [address] Dr. Tomasa Ley RBC 5.49 106/ul Critically high 4.20-5.40 [facility] Comment on above: Performed By: #### C BC #### [facility] [address] [place], [place] [address] Dr. Tomasa Ley WBC 8.0 103/ul Normal 4.0-11.0 [facility] Comment on above: Performed By: #### C BC #### [facility] [address] [place], [place] [address] ABD/PELVIS WO CONon [...] VINAY ALVAREZ Date: 2021-10-28 10:13 Normal [facility] CULTURE URINEon 10-28-2021 CULTURE URINE Culture Observations : NO GROWTH. Normal [facility] Comment on above: Performed By: #### P REGU, UMICRO, ERUR #### [facility] [address] [place], [place] [address] Dr. Tomasa Ley ER URINE PROFILEon 2 Bilirubin Ql (U) Negative Normal NEGATIVE [facility] Comment on above: Performed By: #### U MICRO, ERUR #### [facility] [address] [place], [place] [address] Dr. Tomasa Ley Clarity (U) CLEAR Normal CLEAR [facility] Comment on above: Performed By: #### U MICRO, ERUR #### [facility] [address] [place] [address] [address] Tomasa Ley Color (U) LT. YELLOW Normal YELLOW [facility] Comment on above: Performed By: #### U MICRO, ERUR #### [facility] [address] [place] [address] [address] Tomasa WASHINGTOND A micrscopic examination will be performed if indicated. Normal [facility] Comment on above: Performed By: #### U MICRO, ERUR #### [facility] [address] [place] [address] [address] Tomasa Ley Glucose Ql (U) Negative Normal NEGATIVE [facility] Comment on above: Performed By: #### U MICRO, ERUR #### [facility] [address] [place] [address] [address] Tomasa Ley Hemoglobin Ql (U) Negative Normal NEGATIVE [facility] Comment on above: Performed By: #### U MICRO, ERUR #### [facility] [address] [place] [address] [address] Tomasa Ley Ketones Ql (U) Negative Normal NEGATIVE [facility] Comment on above: Performed By: #### U MICRO, ERUR #### [facility] [address] [place] [address] [address] Tomasa Ley LEUKOCYTES SMALL Abnormal NEGATIVE [facility] Comment on above: Performed By: #### U MICRO, ERUR #### [facility] [address] [place] [address] [address] Tomasa Ley Nitrite Ql (U) Negative Normal NEGATIVE [facility] Comment on above: Performed By: #### U MICRO, ERUR #### [facility] [address] [place] [address] [address] Tomasa Ley pH (U) 5.5 [pH] Normal 5-9 [facility] Comment on above: Performed By: #### U MICRO, ERUR #### [facility] [address] [place] [address] [address] Tomasa Ley SPEC GRAVITY 1.020 Normal 1.005-<=1.025 [facility] Comment on above: Performed By: #### U MICRO, ERUR #### [facility] [address] [place] [address] Dr. Tomasa Ley UA PROTEIN Negative Normal NEGATIVE/ TRACE [facility] Comment on above: Performed By: #### U MICRO, ERUR #### [facility] [address] [place] [address] Dr. Tomasa Ley UR MICRO IND INDICATED Normal [facility] Comment on above: Performed By: #### U MICRO, ERUR #### [facility] [address] [place] [address] Dr. Tomasa Ley Urobilinogen Qn (U) 0.2 {Sly'U}/dL Normal 0.2 - 1. 0 [facility] Comment on above: Performed By: #### U MICRO, ERUR #### [facility] [address] [place] [address] Dr. Tomasa Ley LIPASEon 10-28-2021 Lipase [Catalytic activity/Vol] 142.0 U/L Normal 73.0-393.0 [facility] Comment on above: Performed By: #### C BC #### [facility] [address] [place] [address] Dr. Tomasa Ley PROF 14(COMP METB)on 022 Albumin [Mass/Vol] 3.9 g/dL Normal 3.4-5.0 [facility] Comment on above: Performed By: #### C BC #### [facility] [address] [place] [address] Dr. Tomasa Ley Albumin/Globulin [Mass ratio] 1.0 {ratio} Normal [facility] Comment on above: Performed By: #### C BC #### [facility] [address] [place] [address] Dr. Tomasa Ley ALP [Catalytic activity/Vol] 107 U/L Normal 46-116 [facility] Comment on above: Performed By: #### C BC #### [facility] [address] [place] [address] Dr. Tomasa Ley ALT [Catalytic activity/Vol] 24 U/L Normal 14-59 [facility] Comment on above: Performed By: #### C BC #### [facility] [address] [address] [address] Tomsaa Ley Anion gap [Moles/Vol] 13.4 mmol/L Normal [facility] Comment on above: Performed By: #### C BC #### [facility] [address] [address] [address] Tomasa Ley AST [Catalytic activity/Vol] 18 U/L Normal 15-37 [facility] Comment on above: Performed By: #### C BC #### [facility] [address] [address] [address] Tomasa Ley Bilirubin [Mass/Vol] 0.2 mg/dL Normal 0.2-1.0 [facility] Comment on above: Performed By: #### C BC #### [facility] [address] [address] [address] Tomasa Ley Calcium [Mass/Vol] 8.8 mg/dL Normal 8.5-10.1 [facility] Comment on above: Performed By: #### C BC #### [facility] [address] [address] [address] Tomasa Ley Chloride [Moles/Vol] 103 mmol/L Normal 98-107 [facility] Comment on above: Performed By: #### C BC #### [facility] [address] [address] [address] Tomasa Ley CO2 [Moles/Vol] 27.6 mmol/L Normal 21.0-32.[address] [facility] Comment on above: Performed By: #### C BC #### [facility] [address] [address] [address] Tomasa Ley Creatinine [Mass/Vol] 1.07 mg/dL Critically high 0.55-1.02 [facility] Comment on above: Performed By: #### C BC #### [facility] [address] [address] [address] Tomasa Ley EGFR-AF PALAUAN >60 Normal >=[address] [facility] Comment on above: Performed By: #### C BC #### [facility] [address] [place] [address] Dr. Tomasa Ley EGFR-NON AF PALAUAN >60 Normal >=60 [facility] Comment on above: Performed By: #### C BC #### [facility] [address] [place] [address] Dr. Tomasa Ley Globulin (S) [Mass/Vol] 3.8 g/dL Normal [facility] Comment on above: Performed By: #### C BC #### [facility] [address] [address] [address] Tomasa Ley Glucose [Mass/Vol] 90 mg/dL Normal 74-106 [facility] Comment on above: Performed By: #### C BC #### [facility] [address] [place] [address] Dr. Tomasa Ley Potassium [Moles/Vol] 4.0 mmol/L Normal 3.5-5.1 [facility] Comment on above: Performed By: #### C BC #### [facility] [address] [place] [address] Dr. Tomasa Ley Protein [Mass/Vol] 7.7 g/dL Normal 6.4-8.2 [facility] Comment on above: Performed By: #### C BC #### [facility] [address] [place] [address] Dr. Tomasa Ley Sodium [Moles/Vol] 140 mmol/L Normal 136-145 [facility] Comment on above: Performed By: #### C BC #### [facility] [address] [place] [address] Dr. Tomasa Ley Urea nitrogen [Mass/Vol] 9.0 mg/dL Normal 7.0-18.0 [facility] Comment on above: Performed By: #### C BC #### [facility] [address] [place] [address] Dr. Tomasa Ley Urea nitrogen/Creatinine [Mass ratio] 8.4 mg/mg Normal [facility] Comment on above: Performed By: #### C BC #### [facility] [address] [place] [address] Dr. Tomasa Ley URINE MICROSCOPIC ONLYon BACTERIA SMALL Abnormal NONE SEEN [facility] Comment on above: Performed By: #### U MICRO, ERUR #### [facility] [address] [place] [address] Dr. Tomasa Ley Bacteria identified Cx Nom (U) INDICATED Normal [facility] Comment on above: Performed By: #### U MICRO, ERUR #### [facility] [address] [place] [address] Dr. Tomasa Ley CAST NONE SEEN Normal NONE SEEN [facility] Comment on above: Performed By: #### U MICRO, ERUR #### [facility] [address] [place] [address] Dr. Tomasa Ley Crystals LM Nom (Urine sed) NONE SEEN Normal NONE SEEN [facility] Comment on above: Performed By: #### U MICRO, ERUR #### [facility] [address] [place] [address] Dr. Tomasa Ley Epithelial cells LM Ql (Urine sed) MODERATE Abnormal NONE SEEN /RARE [facility] Comment on above: Performed By: #### U MICRO, ERUR #### [facility] [address] [place] [address] Dr. Tomasa Ley MUCOUS NONE SEEN Normal NONE SEEN [facility] Comment on above: Performed By: #### U MICRO, ERUR #### [facility] [address] [place] [address] Dr. Tomasa Ley RBC 2-5 Abnormal 0-2 [facility] Comment on above: Performed By: #### U MICRO, ERUR #### [facility] [address] [place] [address] Dr. Tomasa Ley WBC 5-10 Abnormal NONE SEEN [facility] Comment on above: Performed By: #### U MICRO, ERUR #### [facility] [address] [place] [address] Dr. Tomasa Ley NM HEPATOBILIARY SCAN W [...] by: PATTY MATHEW Date: 2021-07-20 11:49 Normal [facility] Physician Referralon 022 Physician Referral [id number] [facility] AMYLASEon 07-12-2021 Amylase [Catalytic activity/Vol] 35 U/L Normal 31-110 [facility] Comment on above: Performed By: #### C BC #### [facility] [address] [place] [address] Dr. Tomasa Ley CBC AUTO DIFFon 07-12-2021 BASO # 0.0 103/ul Normal 0.0-0.1 [facility] Comment on above: Performed By: #### C BC #### [facility] [address] [place] [address] Dr. Tomasa Ley Basophils/100 WBC (Bld) 0.5 % Normal 0.2-2.0 [facility] Comment on above: Performed By: #### C BC #### [facility] [address] [place] [address] Dr. Tomasa Ley EO # 0.1 103/ul Normal 0.0-0.7 [facility] Comment on above: Performed By: #### C BC #### [facility] [address] [place] [address] Dr. Tomasa Ley Eosinophils/100 WBC (Bld) 1.1 % Normal 0.9-7.0 [facility] Comment on above: Performed By: #### C BC #### [facility] [address] [place] [address] Dr. Tomasa Ley Erythrocyte distribution width (RBC) [Ratio] 16.2 % Critically high 11.0-15.0 [facility] Comment on above: Performed By: #### C BC #### [facility] [address] [place] [address] Dr. Tomasa Ley Hematocrit (Bld) [Volume fraction] 43.6 % Normal 36.0-48.0 [facility] Comment on above: Performed By: #### C BC #### [facility] [address] [place] [address] Dr. Tomasa Ley Hemoglobin (Bld) [Mass/Vol] 14.2 g/dL Normal 12.0-16.0 [facility] Comment on above: Performed By: #### C BC #### [facility] [address] [place] [address] Dr. Tomasa Ley IG # 0.02 10e3/ul Normal 0.00-0.03 [facility] Comment on above: Performed By: #### C BC #### [facility] [address] [place] [address] Dr. Tomasa Ley IG % 0.3 % Normal 0.0-0.5 [facility] Comment on above: Performed By: #### C BC #### [facility] [address] [place] [address] Dr. Tomasa Ley LYMPH # 2.0 103/ul Normal 1.2-3.8 [facility] Comment on above: Performed By: #### C BC #### [facility] [address] [place] [address] Dr. Tomasa Ley Lymphocytes/100 WBC (Bld) 25.8 % Normal 20.5-60.0 [facility] Comment on above: Performed By: #### C BC #### [facility] [address] [place] [address] Dr. Tomasa Ley MANUAL DIFF REQ NO Normal [facility] Comment on above: Performed By: #### C BC #### [facility] [address] [address] [address] Tomasa Ley MCH (RBC) [Entitic mass] 26.6 pg Critically low 26.7-34.0 [facility] Comment on above: Performed By: #### C BC #### [facility] [address] [place] [address] Dr. Tomasa Ley MCHC (RBC) [Mass/Vol] 32.6 g/dL Normal 29.9-35.2 [facility] Comment on above: Performed By: #### C BC #### [facility] [address] [place] [address] Dr. Tomasa Ley MCV (RBC) [Entitic vol] 81.6 fL Normal 81.0-99.0 [facility] Comment on above: Performed By: #### C BC #### [facility] [address] [place] [address] Dr. Tomasa Ley MONO # 0.7 103/ul Normal 0.3-0.8 [facility] Comment on above: Performed By: #### C BC #### [facility] [address] [place] [address] Dr. Tomasa Ley Monocytes/100 WBC (Bld) 9.1 % Normal 1.7-12.0 [facility] Comment on above: Performed By: #### C BC #### [facility] [address] [place] [address] Dr. Tomasa Ley NEUT # 5.0 103/ul Normal 1.4-6.5 [facility] Comment on above: Performed By: #### C BC #### [facility] [address] [place] [address] Dr. Tomasa Ley Neutrophils/100 WBC (Bld) 63.2 % Normal 43.0-75.0 [facility] Comment on above: Performed By: #### C BC #### [facility] [address] [place] [address] Dr. Tomasa Ley Platelet mean volume (Bld) [Entitic vol] 11.0 fL Normal 9.5-13.5 [facility] Comment on above: Performed By: #### C BC #### [facility] [address] [place] [address] Dr. Tomasa Ley PLT 236 103/ul Normal 150-450 [facility] Comment on above: Performed By: #### C BC #### [facility] [address] [place] [address] Dr. Tomasa Ley RBC 5.34 106/ul Normal 4.20-5.40 [facility] Comment on above: Performed By: #### C BC #### [facility] [address] [place] [address] Dr. Tomasa Ley WBC 7.9 103/ul Normal 4.0-11.0 [facility] Comment on above: Performed By: #### C BC #### [facility] [address] [place] [address] Dr. Tomasa Ley ER URINE PROFILEon 2 Bilirubin Ql (U) Negative Normal NEGATIVE [facility] Comment on above: Performed By: #### RINKU ZHANG, ERUR #### [facility] [address] [place] [address] Dr. Tomasa Ley Clarity (U) CLEAR Normal CLEAR [facility] Comment on above: Performed By: #### RINKU ZHANG ERUR #### [facility] [address] [place] [address] Dr. Tomasa Ley Color (U) LT. YELLOW Normal YELLOW [facility] Comment on above: Performed By: #### RINKU ZHANG, ERUR #### [facility] [address] [place] [address] Dr. Tomasa ESTEBAN A micrscopic examination will be performed if indicated. Normal [facility] Comment on above: Performed By: #### P RINKU CHERRY ERUR #### [facility] [address] [place] [address] Dr. Tomasa Ley Glucose Ql (U) Negative Normal NEGATIVE [facility] Comment on above: Performed By: #### P RINKU CHERRY, ERUR #### [facility] [address] [place] [address] Dr. Tomasa Ley Hemoglobin Ql (U) TRACE-INTACT Abnormal NEGATIVE [facility] Comment on above: Performed By: #### P REGU UMICRO, ERUR #### [facility] [address] [address] [address] Tomasa Ley Ketones Ql (U) Negative Normal NEGATIVE [facility] Comment on above: Performed By: #### P REGU UMICRO, ERUR #### [facility] [address] [address] [address] Tomasa Ley LEUKOCYTES Negative Normal NEGATIVE [facility] Comment on above: Performed By: #### P REGU UMICRO, ERUR #### [facility] [address] [place] [address] Dr. Tomasa Ley Nitrite Ql (U) Negative Normal NEGATIVE [facility] Comment on above: Performed By: #### P REGU UMICRO, ERUR #### [facility] [address] [place] [address] Dr. Tomasa Ley pH (U) 5.5 [pH] Normal 5-9 [facility] Comment on above: Performed By: #### P REGU UMICRO, ERUR #### [facility] [address] [place] [address] Dr. Tomasa Ley SPEC GRAVITY >=1.030 Abnormal 1.005-<=1.025 [facility] Comment on above: Performed By: #### P REGU UMICRO, ERUR #### [facility] [address] [address] [address] Tomasa Ley UA PROTEIN Negative Normal NEGATIVE/ TRACE [facility] Comment on above: Performed By: #### P REGU UMICRO, ERUR #### [facility] [address] [place] [address] Dr. Tomasa Ley UR MICRO IND INDICATED Normal [facility] Comment on above: Performed By: #### P REGU UMICRO, ERUR #### [facility] [address] [place] [address] Dr. Tomasa Ley Urobilinogen Qn (U) 0.2 {Sly'U}/dL Normal 0.2 - 1. 0 [facility] Comment on above: Performed By: #### P RINKU CHERRY ERUR #### [facility] [address] [place] [address] Dr. Tomasa Ley LIPASEon 07-12-2021 Lipase [Catalytic activity/Vol] 140.0 U/L Normal 23.0-300.0 [facility] Comment on above: Performed By: #### C BC #### [facility] [address] [place] [address] Dr. Tomasa Ley URon 07-12-2021 , QUAL Negative Normal NEGATIVE [facility] Comment on above: Performed By: #### P RINKU CHERRY ERUR #### [facility] [address] [place] [address] Dr. Tomasa Ley PROF 14(COMP METB)on 022 Albumin [Mass/Vol] 3.9 g/dL Normal 3.5-5.0 [facility] Comment on above: Performed By: #### C BC #### [facility] [address] [place] [address] Dr. Tomasa Ley Albumin/Globulin [Mass ratio] 1.0 {ratio} Normal [facility] Comment on above: Performed By: #### C BC #### [facility] [address] [place] [address] Dr. Tomasa Ley ALP [Catalytic activity/Vol] 102 U/L Normal 38-126 [facility] Comment on above: Performed By: #### C BC #### [facility] [address] [place] [address] Dr. Tomasa Ley ALT [Catalytic activity/Vol] 15 U/L Normal 9-52 [facility] Comment on above: Performed By: #### C BC #### [facility] [address] [place] [address] Dr. Tomasa Ley Anion gap [Moles/Vol] 12.3 mmol/L Normal [facility] Comment on above: Performed By: #### C BC #### [facility] [address] [address] [address] Tomasa Ley AST [Catalytic activity/Vol] 14 U/L Normal 14-36 [facility] Comment on above: Performed By: #### C BC #### [facility] [address] [place] [address] Dr. Tomasa Ley Bilirubin [Mass/Vol] 0.3 mg/dL Normal 0.2-1.3 [facility] Comment on above: Performed By: #### C BC #### [facility] [address] [place] [address] Dr. Tomasa Ley Calcium [Mass/Vol] 8.8 mg/dL Normal 8.4-10.2 [facility] Comment on above: Performed By: #### C BC #### [facility] [address] [place] [address] Dr. Tomasa Ley Chloride [Moles/Vol] 103 mmol/L Normal 98-107 [facility] Comment on above: Performed By: #### C BC #### [facility] [address] [place] [address] Dr. Tomasa Ley CO2 [Moles/Vol] 25.5 mmol/L Normal 22.0-30.0 [facility] Comment on above: Performed By: #### C BC #### [facility] [address] [place] [address] Dr. Tomasa Ley Creatinine [Mass/Vol] 1.01 mg/dL Normal 0.52-1.04 [facility] Comment on above: Performed By: #### C BC #### [facility] [address] [place] [address] Dr. Tomasa Ley EGFR-AF PALAUAN 60 mL/min/1.73m2 Normal >=60 [facility] Comment on above: Performed By: #### C BC #### [facility] [address] [place] [address] Dr. Tomasa Ley EGFR-NON AF PALAUAN 60 mL/min/1.73m2 Normal >=60 [facility] Comment on above: Performed By: #### C BC #### [facility] [address] [place] [address] Dr. Tomasa Ley Globulin (S) [Mass/Vol] 3.8 g/dL Normal [facility] Comment on above: Performed By: #### C BC #### [facility] [address] [address] [address] Tomasa Ley Glucose [Mass/Vol] 95 mg/dL Normal 74-106 [facility] Comment on above: Performed By: #### C BC #### [facility] [address] [address] [address] Tomasa Ley Potassium [Moles/Vol] 3.8 mmol/L Normal 3.4-5.0 [facility] Comment on above: Performed By: #### C BC #### [facility] [address] [place] [address] Dr. Tomasa Ley Protein [Mass/Vol] 7.7 g/dL Normal 6.1-8.2 [facility] Comment on above: Performed By: #### C BC #### [facility] [address] [place] [address] Dr. Tomasa Ley Sodium [Moles/Vol] 137 mmol/L Normal 137-145 [facility] Comment on above: Performed By: #### C BC #### [facility] [address] [place] [address] Dr. Tomasa Ley Urea nitrogen [Mass/Vol] 16.0 mg/dL Normal 7.0-17.0 [facility] Comment on above: Performed By: #### C BC #### [facility] [address] [address] [address] Tomasa Ley Urea nitrogen/Creatinine [Mass ratio] 15.8 mg/mg Normal [facility] Comment on above: Performed By: #### C BC #### [facility] [address] [place] [address] Dr. Tomasa Ley URINE MICROSCOPIC ONLYon BACTERIA NONE SEEN Normal NONE SEEN [facility] Comment on above: Performed By: #### P RINKU CHERRY, ERUR #### [facility] [address] [place] [address] Dr. Tomasa Ley Bacteria identified Cx Nom (U) NOT INDICATED Normal [facility] Comment on above: Performed By: #### P REGU, UMICRO, ERUR #### [facility] [address] [place] [address] Dr. Tomasa Ley CAST NONE SEEN Normal NONE SEEN [facility] Comment on above: Performed By: #### P REGU, UMICRO, ERUR #### [facility] [address] [place] [address] Dr. Tomasa Ley Crystals LM Nom (Urine sed) NONE SEEN Normal NONE SEEN [facility] Comment on above: Performed By: #### P REGU, UMICRO, ERUR #### [facility] [address] [place] [address] Dr. Tomasa Ley Epithelial cells LM Ql (Urine sed) MODERATE Abnormal NONE SEEN /RARE [facility] Comment on above: Performed By: #### P REGU, UMICRO, ERUR #### [facility] [address] [place] [address] Dr. Tomasa Ley MUCOUS SMALL Abnormal NONE SEEN [facility] Comment on above: Performed By: #### P REGU, UMICRO, ERUR #### [facility] [address] [place] [address] Dr. Tomasa Ley RBC 5-10 Abnormal 0-2 [facility] Comment on above: Performed By: #### P REGU, UMICRO, ERUR #### [facility] [address] [place] [address] Dr. Tomasa Ley WBC NONE SEEN Normal NONE SEEN [facility] Comment on above: Performed By: #### P REGU, UMICRO, ERUR #### [facility] [address] [place] [address] Dr. Tomasa Ley US SINGLE QUAD RT [...] PATTY MATHEW Date: 2021-07-12 09:45 Normal [facility] CBC AUTO DIFFon 12-23-2020 BASO # 0.1 103/ul Normal 0.0-0.1 [facility] Comment on above: Performed By: #### C BC #### [facility] [address] [place] [address] Dr. Tomasa Ley Basophils/100 WBC (Bld) 0.7 % Normal 0.2-2.0 [facility] Comment on above: Performed By: #### C BC #### [facility] [address] [address] [address] Tomasa Ley EO # 0.1 103/ul Normal 0.0-0.7 [facility] Comment on above: Performed By: #### C BC #### [facility] [address] [place] [address] Dr. Tomasa Ley Eosinophils/100 WBC (Bld) 1.6 % Normal 0.9-7.0 [facility] Comment on above: Performed By: #### C BC #### [facility] [address] [place] [address] Dr. Tomasa Ley Erythrocyte distribution width (RBC) [Ratio] 16.4 % Critically high 11.0-15.0 [facility] Comment on above: Performed By: #### C BC #### [facility] [address] [place] [address] Dr. Tomasa Ley Hematocrit (Bld) [Volume fraction] 41.7 % Normal 36.0-48.0 [facility] Comment on above: Performed By: #### C BC #### [facility] [facility] [address] [address] [address] Tomasa Ley Hemoglobin (Bld) [Mass/Vol] 13.1 g/dL Normal 12.0-16.0 [facility] Comment on above: Performed By: #### C BC #### [facility] [address] [place] [address] Dr. Tomasa Ley IG # 0.01 10e3/ul Normal 0.00-0.03 [facility] Comment on above: Performed By: #### C BC #### [facility] [address] [place] [address] Dr. Tomasa Ley IG % 0.1 % Normal 0.0-0.5 [facility] Comment on above: Performed By: #### C BC #### [facility] [address] [place] [address] Dr. Tomasa Ley LYMPH # 1.9 103/ul Normal 1.2-3.8 [facility] Comment on above: Performed By: #### C BC #### [facility] [address] [place] [address] Dr. Tomasa Ley Lymphocytes/100 WBC (Bld) 25.6 % Normal 20.5-60.0 [facility] Comment on above: Performed By: #### C BC #### [facility] [address] [place] [address] Dr. Tomasa Ley MANUAL DIFF REQ NO Normal [facility] Comment on above: Performed By: #### C BC #### [facility] [address] [place] [address] Dr. Tomasa Ley MCH (RBC) [Entitic mass] 25.4 pg Critically low 26.7-34.0 [facility] Comment on above: Performed By: #### C BC #### [facility] [address] [place] [address] Dr. Tomasa Ley MCHC (RBC) [Mass/Vol] 31.4 g/dL Normal 29.9-35.2 [facility] Comment on above: Performed By: #### C BC #### [facility] [address] [address] [address] Tomasa Ley MCV (RBC) [Entitic vol] 80.8 fL Critically low 81.0-99.0 [facility] Comment on above: Performed By: #### C BC #### [facility] [address] [address] [address] Tomasa Ley MONO # 0.7 103/ul Normal 0.3-0.8 [facility] Comment on above: Performed By: #### C BC #### [facility] [address] [place] [address] Dr. Tomasa Ley Monocytes/100 WBC (Bld) 10.0 % Normal 1.7-12.0 [facility] Comment on above: Performed By: #### C BC #### [facility] [address] [place] [address] Dr. Tomasa Ley NEUT # 4.6 103/ul Normal 1.4-6.5 [facility] Comment on above: Performed By: #### C BC #### [facility] [address] [place] [address] Dr. Tomasa Ley Neutrophils/100 WBC (Bld) 62.0 % Normal 43.0-75.0 [facility] Comment on above: Performed By: #### C BC #### [facility] [address] [place] [address] Dr. Tomasa Ley Platelet mean volume (Bld) [Entitic vol] 11.5 fL Normal 9.5-13.5 [facility] Comment on above: Performed By: #### C BC #### [facility] [address] [place] [address] Dr. Tomasa Ley PLT 244 103/ul Normal 150-450 [facility] Comment on above: Performed By: #### C BC #### [facility] [address] [place] [address] Dr. Tomasa Ley RBC 5.16 106/ul Normal 4.20-5.40 [facility] Comment on above: Performed By: #### C BC #### [facility] [address] [place] [address] Dr. Tmoasa Ley WBC 7.4 103/ul Normal 4.0-11.0 [facility] Comment on above: Performed By: #### C BC #### [facility] [address] [place] [address] Dr. Tomasa Ley CULTURE URINEon 12-23-2020 CULTURE URINE Culture Observations : NO GROWTH. Normal [facility] Comment on above: Performed By: #### C BC #### [facility] [address] [place] [address] Dr. Tomasa Ley PROF 14(COMP METB)on 021 Albumin [Mass/Vol] 3.7 g/dL Normal 3.5-5.0 [facility] Comment on above: Performed By: #### C BC #### [facility] [address] [place] [address] Dr. Tomasa Ley Albumin/Globulin [Mass ratio] 1.0 {ratio} Normal [facility] Comment on above: Performed By: #### C BC #### [facility] [address] [place] [address] Dr. Tomasa Ley ALP [Catalytic activity/Vol] 83 U/L Normal 38-126 [facility] Comment on above: Performed By: #### C BC #### [facility] [address] [place] [address] Dr. Tomasa Ley ALT [Catalytic activity/Vol] 23 U/L Normal 9-52 [facility] Comment on above: Performed By: #### C BC #### [facility] [address] [place] [address] Dr. Tomasa Ley Anion gap [Moles/Vol] 11.4 mmol/L Normal [facility] Comment on above: Performed By: #### C BC #### [facility] [address] [place] [address] Dr. Tomasa Ley AST [Catalytic activity/Vol] 19 U/L Normal 14-36 [facility] Comment on above: Performed By: #### C BC #### [facility] [address] [place] [address] Dr. Tomasa Ley Bilirubin [Mass/Vol] 0.3 mg/dL Normal 0.2-1.3 [facility] Comment on above: Performed By: #### C BC #### [facility] [address] [place] [address] Dr. Tomasa Ley Calcium [Mass/Vol] 8.4 mg/dL Normal 8.4-10.2 [facility] Comment on above: Performed By: #### C BC #### [facility] [address] [place] [address] Dr. Tomasa Ley Chloride [Moles/Vol] 101 mmol/L Normal 98-107 [facility] Comment on above: Performed By: #### C BC #### [facility] [address] [place] [address] Dr. Tomasa Ley CO2 [Moles/Vol] 29.4 mmol/L Normal 22.0-30.0 [facility] Comment on above: Performed By: #### C BC #### [facility] [address] [place] [address] Dr. Tomasa Ley Creatinine [Mass/Vol] 1.03 mg/dL Normal 0.52-1.04 [facility] Comment on above: Performed By: #### C BC #### [facility] [address] [place] [address] Dr. Tomasa Ley EGFR-AF PALAUAN >60 Normal >=[address] [facility] Comment on above: Performed By: #### C BC #### [facility] [address] [place] [address] Dr. Tomasa Ley EGFR-NON AF PALAUAN >60 Normal >=60 [facility] Comment on above: Performed By: #### C BC #### [facility] [address] [place] [address] Dr. Tomasa Ley Globulin (S) [Mass/Vol] 3.6 g/dL Normal [facility] Comment on above: Performed By: #### C BC #### [facility] [address] [place] [address] Dr. Tomasa Ley Glucose [Mass/Vol] 85 mg/dL Normal 74-106 [facility] Comment on above: Performed By: #### C BC #### [facility] [address] [address] [address] Tomasa Ley Potassium [Moles/Vol] 3.8 mmol/L Normal 3.4-5.0 [facility] Comment on above: Performed By: #### C BC #### [facility] [address] [address] [address] Tomasa Ley Protein [Mass/Vol] 7.3 g/dL Normal 6.1-8.2 [facility] Comment on above: Performed By: #### C BC #### [facility] [address] [address] [address] Tomasa Ley Sodium [Moles/Vol] 138 mmol/L Normal 137-145 [facility] Comment on above: Performed By: #### C BC #### [facility] [address] [place] [address] Dr. Tomasa Ley Urea nitrogen [Mass/Vol] 9.0 mg/dL Normal 7.0-17.0 [facility] Comment on above: Performed By: #### C BC #### [facility] [address] [place] [address] Dr. Tomasa Ley Urea nitrogen/Creatinine [Mass ratio] 8.7 mg/mg Normal [facility] Comment on above: Performed By: #### C BC #### [facility] [address] [place] [address] Dr. Tomasa Lye UA RANDOMon 12-23-2020 Bilirubin Ql (U) Negative Normal NEGATIVE [facility] Comment on above: Performed By: #### U A #### [facility] [address] [place] [address] Cedrick Kathleen Clarity (U) CLEAR Normal CLEAR [facility] Comment on above: Performed By: #### U A #### [facility] [address] [place] [address] Cedrick Kathleen Color (U) LT. YELLOW Normal YELLOW [facility] Comment on above: Performed By: #### U A #### [facility] [address] [place] [address] Cedrick Kathleen Glucose Ql (U) Negative Normal NEGATIVE [facility] Comment on above: Performed By: #### U A #### [facility] [address] [place] [address] Cedrick Kathleen Hemoglobin Ql (U) Negative Normal NEGATIVE [facility] Comment on above: Performed By: #### U A #### [facility] [address] [place] [address] Cedrick Kathleen Ketones Ql (U) Negative Normal NEGATIVE [facility] Comment on above: Performed By: #### U A #### [facility] [address] [place] [address] Cedrick Kathleen LEUKOCYTES Negative Normal NEGATIVE [facility] Comment on above: Performed By: #### U A #### [facility] [address] [place] [address] Cedrick Kathleen Nitrite Ql (U) Negative Normal NEGATIVE [facility] Comment on above: Performed By: #### U A #### [facility] [address] [place] [address] Cedrick Kathleen pH (U) 5.5 [pH] Normal 5-9 [facility] Comment on above: Performed By: #### U A #### [facility] [address] [place] [address] Cedrick Kathleen SPEC GRAVITY <=1.005 Abnormal 1.005-<=1.025 [facility] Comment on above: Performed By: #### U A #### [facility] [address] [place] [address] Cedrick Kathleen UA PROTEIN Negative Normal NEGATIVE/ TRACE [facility] Comment on above: Performed By: #### U A #### [facility] [address] [place] [address] Cedrick Kathleen Urobilinogen Qn (U) 0.2 {Sly'U}/dL Normal 0.2 - 1. 0 [facility] Comment on above: Performed By: #### U A #### [facility] [address] [place] [address] Cedrick Kathleen US KIDNEYS BLADDERon 021 US [...] by: JABIER ALSTON Date: 2020-12-23 15:06 Normal [facility] Vital Signs Date Time Vital Sign Value Performing Clinician Facility 05-04-2024 08:03-0500 Body mass index (BMI) [Ratio] 34.11 kg/m2 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 Work Phone: [facility] 05-04-2024 08:03-0500 Body weight 92.99 kg 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 Work Phone: [facility] 05-04-2024 08:03-0500 Diastolic blood pressure 74 mm[Hg] 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 Work Phone: [facility] 05-04-2024 08:03-0500 Heart rate 53 /min 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 Work Phone: [facility] 05-04-2024 08:03-0500 Systolic blood pressure 110 mm[Hg] [employer]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 Work Phone: [facility] 02-09-2023 13:45-0400 Body height 158.12 cm Elin Bryan Other [facility] 02-09-2023 13:45-0400 Body mass index (BMI) [Ratio] 37.19 kg/m2 Elin Bryan Other [facility] Other 02-09-2023 13:45-0400 Body temperature 98.1 [degF] Elin Bryan Other [facility] Other 02-09-2023 13:45-0400 Body weight 92.99 kg Elin Bryan Other [facility] Other 02-09-2023 13:45-0400 Respiratory rate 18 /min Elin Beltranley Other [facility] Other 02-09-2023 13:45-0400 SaO2% (BldA) [Mass fraction] 98 % Elin Beltranley Other [facility] Other Encounters Encounter Date Encounter Type Care Provider Facility Start: 07-21-2024 End: 07-21-2024 ambulatory ESTER MIRANDA Not Available Start: 07-12-2024 End: 07-12-2024 ambulatory RACHAEL STARR Not Available Start: 06-23-2024 End: 06-23-2024 Office outpatient visit 15 minutes Sabrina Head BUSINESS REL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 Work Phone: [facility] Comment on above: 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) (CMS/HCC); MYRANDA (generalized anxiety disorder) (CMS/HCC); History of hyperprolactinemia Start: 06-23-2024 End: 06-23-2024 ambulatory SABRINACHINYERE HEAD Not Available Start: 05-18-2024 End: 05-18-2024 Telephone encounter Sabrinachinyere Head BUSINESS REL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 Work Phone: [facility] Comment on above: Advice Only Start: 05-10-2024 End: 05-10-2024 Telephone encounter Lori Blackwell LPN [facility] Comment on above: Medication Problem Start: 05-04-2024 End: 05-04-2024 Bamboo flowsheet Sabrina Aggarwalton BUSINESS REL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 Work Phone: [facility] Start: 05-04-2024 End: 05-04-2024 Bamboo flowsheet Sabrina Aggarwalton BUSINESS REL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 Work Phone: [facility] Start: 05-04-2024 End: 05-04-2024 Office outpatient new 60 minutes Sabrina Head BUSINESS REL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 Work Phone: [facility] Comment on above: 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) (CMS/HCC); MYRANDA (generalized anxiety disorder) (CMS/HCC); History of hyperprolactinemia; Wilm's tumor (nephroblastoma), left (CMS/HCC); Hemihypertrophy Start: 05-04-2024 End: 05-04-2024 ambulatory SABRINA HEAD Not Available Start: 12-17-2023 End: 12-17-2023 ambulatory PENOLA P ROMAN Not Available Start: 10-08-2023 End: 10-08-2023 ambulatory PENOLA P ROMAN Not Available Start: 09-15-2023 End: 09-15-2023 ambulatory PENOLA P ROMAN Not Available Start: 02-09-2023 End: 02-09-2023 Patient encounter procedure MD Lydia San Work Phone: [facility] Work Phone: Start: 02-09-2023 End: 02-09-2023 ambulatory MD Lydia San Work Phone: [facility] Other Start: 02-09-2023 Office outpatient vi sit 15 minutes Elin Bryan [facility] Start: 09-10-2022 ambulatory Rob Coello Facility:[facility] Start: 12-08-2021 End: 12-08-[address] [...] MD Lydia San Work Phone: Hyperlipidemia screening [facility]hek [facility] Other Plan of Treatment Date Care Activity Detail Author Start: 09-13-2024 End: 09-13-2024 Patient encounter procedure 09/13/2024 10:30 AM EDT Office Visit [facility] [address] [place] [address] Sabirna Head, CONY [address] [place] [address] [facility] Start: 06-23-2024 End: 06-23-2024 Patient encounter procedure 06/23/2024 9:00 AM EST Off ice Visit [facility] [address] [place] [address] Sabrina Head NP [address] [place] [address] [facility] Start: 06-09-2024 End: 06-09-2024 Patient encounter procedure 06/09/2024 9:30 AM EST Off ice Visit [facility] [address] [place] [address] Sabrina Head NP [address] [place] [address] [facility] Start: 05-04-2024 End: 05-04-2024 Patient encounter procedure 05/04/2024 8:00 AM EST Off ice Visit [facility] [address] [place] [address] Sabrina Head, CONY [address] [place] [address] Arrived [facility] Comment on above: Arrived Immunizations Immunization Date Immunization Notes Care Provider Fa [facility] 07-11-2018 tetanus toxoid, reduced diphtheria toxoid, and acellular pertussis vaccine, adsorbed MD Lydia San Work Phone: [facility] 04-10-2011 human papilloma viru s vaccine, quadrivalent Elin Bryan Other [facility] Other Payers Date Payer Category Payer Self-pay [id number] 2021 [facility] BCBS [id number] 1992 Unknown [id number] 2.840.1.091674.3.579.2. 593 1992 Unknown [id number] 2.16840.1.801291.3.579.2. 59 1992 Unknown [id number] 2.16840.1.796900.3.579.2. 59 1992 Unknown [id number] 2.16840.1.728566.3.579.2. 593 1992 Unknown [id number] 2.16840.1.040610.3.579.2. 593 1992 Unknown [id number] 2.16840.1.468023.3.579.2. 593 1992 Unknown [id number] 2.16840.1.536574.3.579.2. 1259 1992 Unknown [id number] 2.16.840.1.884285.3.579.2. 9 1992 Unknown [id number] 2.16.840.1.985121.3.579.2. 9 1992 Unknown [id number] 2.16.840.1.000632.3.579.2. 1258 1992 Unknown [id number] 2.16.840.1.805327.3.579.2. 1258 1992 Unknown [id number] 2.16.840.1.325613.3.579.2. 1258 1992 Unknown [id number] 2.16.840.1.181279.3.579.2. 1258 1992 Unknown [id number] 2.16.840.1.494328.3.579.2. 9 1959 Private Health Insurance [id number] 1959 Private Health Insurance [id number] 1959 Unknown [id number] 1959 Unknown [id number] Medicaid Medicaid [id number] Private Health Insurance [facility] [id number] Unknown MMO [id number] Unknown [id number] [id number]. 531 Unknown [id number] [id number]. 531 Social History Date Type Detail Facility Unknown if ever smoked [facility] Other Start: 09-15-2023 End: 05-04-2024 Sex Assigned At [facility] Start: 07-20-2021 End: 09-15-2023 Tobacco smoking status NHIS Never smoked tobacco (finding) [facility] Start: 1990 Sex Assigned At Female [facility] Start: 09-15-2023 Tobacco use and [...] Sex assigned at Not on file [facility] Start: 05-04-2024 Education 15 [facility] Clinical Notes 12-03-2022 to 06-23-2024 Sabrina Head NP - 06/23/2024 9:00 AM ESTTelephone Encounter - Sabrina Head NP - 05/18/2024 10:56 AM ESTTelephone Encounter - Sabrina Head, CONY - 05/18/2024 10:56 AM EST Note Date & Type Note Facility 06-23-2024 History of Presen t illness Narrative Images from the original note were not included. HPI: Gema Raymond is a 33 y.o. female with a history of Behcet's disease, hemihypertrophy, hyperprolacetinemia, Wilm's tumor requiring resection of left kidney, MYRANDA, and MDD. Patient is here today for follow-up via telehealth. Location of patient: Home; located in [place] Location of provider: Office; located in [place], [place] Patient seen via: Epic Telehealth; audio and video utilized - patient unable to hear provider so switched to telephone call Reason for televisit: Transportation issues; weather Total time spent with patient: 15 minutes Did patient gave verbal consent for today's visit? Yes She was initially started on Duloxetine and had thought that her initial side effects experienced were related to this medication. She was then switched to Remeron because of this and then reported being more agitated, irritable, and paranoid. She had requested to switch back to Duloxetine as she states that her PCP believes her symptoms are related to a heart issue based on her EKG. She was restarted on her Duloxetine on 05/18/24. She states she is feeling less anxious and trujillo. She denies any depression. She feels that the medication is working well for her mental health. She stopped her Buspirone a while ago due to it causing her to be nauseous. She states that her previous therapist would tell her that she tends to think of worse case scenario and she finds herself not doing that as often since being on medication. She states that she has been seeing several specialist to continue to investigate medical issues she has been having. She states she had studies completed on her legs which did not show anything abnormal. She continues to have pain in her legs when she walks short distances. She also had a stress test and US of her heart which she states didn't show anything abnormal. She states they also found a cyst on her kidney and are monitoring this. She reports a slight increase in her TSH and they are going to be recheck in the near future. SUBJECTIVE: PAST MEDICAL HISTORY: Past Medical History: Diagnosis Date Anemia 12/13/2015 Behcet's disease ([facility]) History of cancer Wilms as a child History of suicidal ideation while on lexapro MEDICATIONS: Current Outpatient Medications Medication Instructions DULoxetine (CYMBALTA) 20 mg, Daily etonogestrel-ethinyl estradiol (Nuvaring) 0.12-0.015 MG/24HR vaginal ring [...] pop, coffee or tea Drug use: Never Patient Care Team: Lydia San MD as PCP - General (Family Medicine) Sabrina Head NP as Nurse Practitioner (Behavioral Health) PSYCHIATRIC REVIEW OF SYMPTOMS AND MENTAL STATUS EXAM ROS: Patient denies fatigue, malaise, night sweats, weight loss, weight gain, cough, SOB, palpitations, chest pain, insomnia, dysphagia, abdominal pain, N/V/D, pruritus, rash, headache, dizziness, seizures, tremors, headache. Appearance Appearance: Normal grooming and hygiene. Appears stated age. Dressed appropriately for weather. Behavior Calm, cooperative, pleasant. Good posture. Psychomotor Activity Intact. No abnormal movements noted. Eye contact Good Speech Normal, clear, regular rate, rhythm and volume Affect Full range. Stable. Appropriate and congruent with mood. Mood Euthymic Thought Process Organized, logical, and goal directed Thought Content: Denies suicidal and homicidal ideation. Perception: Denies auditory or visual hallucinations. No evidence of delusions. Denies derealization and depersonalization. Cognition Alert and attentive during visit Memory Immediate, recent and remote memory intact Insight Good. Acknowledges predominant symptoms of illness and need for treatment Judgement Good. Able to make reasonable life decisions. OBJECTIVE: Visit Vitals OB Status Having periods Smoking Status Never Lab results: 02/14/24 CBC, T3, A1C, Iron [...] of nausea when she does take it. She feels Duloxetine working and managing her symptoms well. She desires to keep medication the same. Assessment/Plan Diagnoses and all orders for this visit: Mild episode of recurrent major depressive disorder (HCC) (CMS/HCC) MYRANDA (generalized anxiety disorder) (CMS/HCC) History of hyperprolactinemia Treatment Plan/Recommendations: - Continue Duloxetine 20 mg daily for anxiety, depression, chronic pain. - Continue counseling for additional mental health support and treatment. - Will need to check prolactin level if SGA is ever started due to history of hyperprolactinemia. - RTC in 3 months. Discussed any medication changes and follow-up plan with patient. Encouraged patient to call office sooner if symptoms worsen or if any questions/concerns arise. Patient was seen Face to Face, Total time spent with patient was 15 minutes, which includes reviewing chart documents, previous notes/records, counseling and discussion with patient and/or coordination of care as described above. documented in this encounter [facility] 05-18-2024 Telephone encount er Note Spoke to [...] to give her medication time to work. [facility] 05-18-2024 Miscellaneous Notes Formattin g [...] scheduled for 06/09/24. documented in this encounter [facility] 05-18-2024 Telephone encount er Note [...] has a follow up scheduled for [facility]/09/24. [facility] encount er Note Order for Remeron sent. [facility] 05-10-2024 Miscellaneous Notes Formattin g of this note might be different from the original. Order for Remeron sent. Contacted on HIPAA. He was with . I was put on speaker. Informed both of Sabrina's recommendations. Would like to try Remeron. Informed her of the that she would need to stop Cymbalta and he off X3 days before starting. Understanding voiced. Appt 2/5. Advised to call in any concerns or questions prior to appt. Would like remeron sent to [facility] Patients La came in office for another reason and [...] from his appt. documented in this encounter [facility] 05-10-2024 Telephone encount er Note Contacted on HIPAA. He was with . I was put on speaker. Informed both of Sabrina's recommendations. Would like to try Remeron. Informed her of the that she would need to stop Cymbalta and he off X3 days before starting. Understanding voiced. Appt 2/5. Advised to call in any concerns or questions prior to appt. Would like remeron sent to [facility] 05-10-2024 Telephone encount er Note Patients La came in office for another reason and [...] on his way out from his appt. [facility] 05-04-2024 History of Presen t illness Narrative Images from the original note were not included. Gema Raymond is a 33 y.o. 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 Patient was referred by [facility]. Rosemarie, who is her spring encaser from [facility], is here today for additional support. HPI: Reason for visit: Gema Raymond has been experiencing problems with depression and anxiety for many years. She is here to discuss possible medication options to help her symptoms. Developmental History/Childhood: Raised primarily by bio mom between the [facility]. Patient reports being diagnosed with Wilm's tumor [...] of Behcet's syndrome and had seen an box finisher in [place] previously. She states she has not seen [...] was with for 6 years. Education: Attended [employer] and obtained her high school diploma. Also attended some courses at [employer]. Legal history: Denies Family history of mental [...] History: Diagnosis Date Anemia 12/13/2015 Behcet's disease ([facility]) History of cancer Wilms as a child [...] status: Currently in relationship with current , La, for 10 years. 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 Children: 1 daughter (6 years old) Living situation: Lives in home with and their daughter. They have 3 dogs, a bird and a snake. Occupation: Unemployed for the past 5 years. 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 MYRANDA (generalized anxiety disorder) ([facility]) - DULoxetine (Cymbalta) [address] capsule; Take 1 capsule (20 mg) by mouth Daily Do not crush or chew. History of hyperprolactinemia Comments: started around 18/17 years old. Wilm's tumor (nephroblastoma), left ([facility]) Comments: requiring surgical removal of left kidney [...] the local ER or call Suicide Hotline (039) for any psychosis, suicidal or homicidal ideation, or with any risk of harm to self or others. Patient was seen Face to Face, Total time spent with patient was 60 minutes, which includes reviewing chart documents, previous notes/records, counseling and discussion with patient and/or coordination of care as described above. documented in this encounter [facility] 02-09-2023 Evaluation note Encounter Date [...] middle finger, initial encounter (ICD-10 - S69.92XA) [facility] Other 08-01-2023 History general Narrative - Reported* Type Description Date Medical History autoimmune disorder Medical History hyperprolactinemia Medical History Wilms tumor, [place] Surgical History Removal of left kidney 1998 Surgical History [facility] 12/2022 Hospitalization History Removal of left kidney 1 999 Hospitalization History [facility] Hospitalization History 1 CHILD [facility] Other Evaluation noteNo assessment information available [facility] Work Phone: Evaluation note* Diagnosis Mild episode of recurrent major depressive disorder (HCC) (CMS/HCC) MYRANDA (generalized anxiety disorder) ([facility]/HCC) Generalized anxiety disorder History of hyperprolactinemia Wilm's tumor (nephroblastoma), 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, so described documented in this encounter [facility]* Diagnosis Mild episode of recurrent major depressive disorder (HCC) (CMS/HCC) MYRANDA (generalized anxiety disorder) (CMS/HCC) Generalized anxiety disorder documented in this encounter [facility] HealthcareEvaluation note* Diagnosis Mild episode of recurrent major depressive disorder (HCC) (CMS/HCC) MYRANDA (generalized anxiety disorder) (CMS/HCC) Generalized anxiety disorder History of hyperprolactinemia documented in this encounter [facility] Healthcare Summary Purpose Family History No Family History Records FoundNo Family History Records FoundNo Family History Records FoundNo Family History Records Found Advance Directives No Advanced Directives Records Found Advance Directive Response Recorded Date/ Time Advance Directives No February 28, 2017 11:19am Additional Source Comments INFORMATION SOURCE (unrecogn ized section and content) DATE CREATED AUTHOR [facility]/2021 [facility] DATE CREATED AUTHOR AUTHOR'S ORGANIZ ATION 12/10/2021 [facility] DATE CREATED AUTHOR AUTHOR'S ORGANIZ ATION 02/14/2023 [facility] DATE CREATED AUTHOR AUTHOR'S ORGANIZ ATION 07/23/[address] [facility] dical Specialists EPIC REASON FOR VISIT (unrecogniz ed section and content) Reason Comments Psychiatric Evaluation [facility] referral Specialty Diagnoses / Procedures Referred By Selvin t Referred To Contact Behavioral Health Diagnoses Insomnia, unspecified Procedures [facility] [employer]UATION [employer] MANAGEMENT Lydia San MD [address] [place] [address] Phone: tel:[phone] fax: Sabrina Head NP [address] [address] Phone: tel: fax: Referral ID Status Reason Start Date Expiration Date Visits Re quested Visits Authorized [id number] Closed 04/19/2024 10/16/2024 1 1 Reason Onset Date Comments Medication Problem 05/10/2024 Reason Onset Date Comments Advice Only 05/18/2024 Care Teams (unrecognized sec tion and content) Team Status: Active Member Role Status Dates Lydia San MD Primary Care Provider Active Team Status: Inactive Member Role Status Dates Lydia San MD Primary Care Provider Active Elin Bryan APRN Attending Provider Active Tractor Distributor Relationship Specialty Start Date End Date Lydia San MD [address] [place] [address] PCP - General Family Medicine 09/15/23 Tractor Distributor Relationship Specialty Start Date End Date Lydia San MD [address] [place] [address] PCP - General Family Medicine 09/15/23 Sabrina Head NP [address] [address] Nurse Practitioner Behavioral Health 05/04/24 Tractor Distributor Relationship Specialty Start Date End Date Lydia aSn MD [address] [place] [address] PCP - General Family Medicine 09/15/23 Sabrina Head, CONY [address] [place] [phone] Nurse Practitioner Behavioral Health 05/04/24 Tractor Distributor Relationship Specialty Start Date End Date Lydia San MD [address] [place] [address] PCP - General Family Medicine 09/15/23 Sabrina Head, CONY [address] [phone] Nurse Practitioner Behavioral Health 05/04/24 Tractor Distributor Relationship Specialty Start Date End Date Lydia San MD [address] [facility] [place] [address] PCP - General Family Medicine 09/15/23 Sabrina Head NP [address] [facility] [address] [place] [address] Nurse Practitioner Behavioral Health 05/04/24 Goals (unrecognized [...] BE BASED ON THE PRIMARY CLINICAL RECORDS. [employer] provides no warranty or guarantee of the accuracy or completeness of information in this document.
[2024-08-19 13:35] LABS: Bilirubin Urine NEGATIVE (NEGATIVE); Blood Urine LARGE (NEGATIVE); Clarity Urine CLEAR (CLEAR); Color Urine LT. YELLOW (YELLOW); Glucose Urine UA NEGATIVE (NEGATIVE); Ketones Urine NEGATIVE (NEGATIVE); Leukocyte Esterase Urine NEGATIVE (NEGATIVE); Nitrite Urine NEGATIVE (NEGATIVE); Protein Urine NEGATIVE (NEG/TRACE); Specific Gravity Urine <=1.005 (1.005-1.025); Urobilinogen Urine 0.2 EU/dL (0.2-1.0)
[2024-08-19 14:06] LABS: Bacteria Urine NONE SEEN #/HPF (NONE SEEN); Cast Seen? NONE SEEN #/LPF (NONE SEEN); Crystals Seen? None Seen #/HPF (None Seen); Mucus Urine NONE SEEN (NONE SEEN); Squamous Epithelial Cell Urine RARE #/LPF (NONE/RARE)
[2024-08-19 14:07] LABS: RBC Urine 0-2 #/HPF (0-2); Urine Culture Indicated NO; WBC Urine 0-2 #/HPF (NONE SEEN)
== END 2024-08-19 09:56 | disposition home or self-care (01) ==
LOC: US 09:55
PROVIDERS: PCP Family Medicine; Visit Provider Family Medicine
DX: N23 Unspecified renal colic (principal); N28.1 Cyst of kidney, acquired
CPT/HCPCS: 76775; 81001; 87086